=== PATIENT | female | born 1960 | race Caucasian/White ===

== ENCOUNTER 2017-11-11 14:08 | Inpatient (IN) | payer OTHER ==
[2017-11-11] VITALS (9 sets, daily range): BP systolic 121–147; BP diastolic 64–119
[~2017-11-11] VITALS: Ht 170.2 cm; Wt 67.8 kg
--- NOTE | 2017-11-11 14:30 | NUR ---
Patient being evaluated by physician at bedside.
--- NOTE | 2017-11-11 14:30 | NUR ---
PLACED PT ON CARESCAPE POST CPR WHICH WAS AT 1413 A/C 20 VT 600 PEEP5 FIO2 100 PTS TRACH PORTEX 7 CUFFLESS IS SECURE BS DIMINISHED PT NOW RESPONDING EDUCATIONAL ASSISTANT TEACHER OBTAINED BMV HOB VENT PLUGGED INTO RED OUTLET
--- NOTE | 2017-11-11 14:30 | NUR ---
57Y/F BIB EMS FROM [facility] IN RESPIRATORY ARREST ON ARRIVAL BEING BAGGGED HAS A PULSE, SHORTLY AFTER ARRIVING STOPPED BREATHING AND CODE WAS CALLED NO PULSE. PT IS PUT ON MONITOR AND RT AT BEDSIDE, TRACH TO VENT AT THIS TIME, PT IS AAOX2 AT THIS TIME,PATIENT STATES PAIN OF 0/10 AT THIS TIME; VSS; PATIENT POSITIONED FOR COMFORT; HOB ELEVATED; BEDRAILS UP X2; BED DOWN. ER MD MADE AWARE OF PT STATUS.
[2017-11-11] MEDS ORDERED: METO25TE2 PO (14:47)
[2017-11-11] MEDS ORDERED: DOCU-299 PO (14:47)
[2017-11-11] MEDS ORDERED: ESCI10TA PO (14:47)
[2017-11-11] MEDS ORDERED: QUEPKT PO (14:47)
[2017-11-11] MEDS ORDERED: ASPI81CT89 PO (14:47)
[2017-11-11] MEDS ORDERED: MULT1SGL58 PO (14:47)
[2017-11-11] MEDS ORDERED: TAMS0.4C96 PO (14:47)
[2017-11-11] MEDS ORDERED: [UNRECOGNIZED DRUG - CODE] SQ (14:47)
[2017-11-11] MEDS ORDERED: FLOR250 PO (14:47)
[2017-11-11] MEDS ORDERED: FURO-570 PO (14:47)
--- NOTE | 2017-11-11 15:00 | NUR ---
DR LORENZO CHANGED PORTEX 7 CUFFLESS TO PORTEX CUFFED WITHOUT INCIDENT
--- NOTE | 2017-11-11 15:03 | NUR ---
COOKIE AMOS, DR. LORENZO DID A TRACH REPLACEMENT AT THIS TIME
--- NOTE | 2017-11-11 15:06 | NUR ---
VENT SETTINGS; A/C VC FIO2, 100 VT, 600 RATE, 20 FLOW, 60 PEEP, 5 PMAX, 65
[2017-11-11] MEDS ORDERED: NACL 0.9% 1,000 ML IV ONE (15:15)
--- NOTE | 2017-11-11 15:48 | NUR ---
X-RAY AT BEDSIDE AT THIS TIME
--- NOTE | 2017-11-11 15:50 | NUR ---
PT SPUTUM COLLECTED BY RT
[2017-11-11 15:54] LABS: BASOPHILS % (AUTO) 0.2 % (0.0-2.0); EOSINOPHILS # (AUTO) 0.1 K/uL (0-0.4); EOSINOPHILS % (AUTO) 0.7 % (0.0-4.0); HEMATOCRIT 31.2 % (36-48); HEMOGLOBIN 9.5 g/dL (12.0-16.0); LYMPHOCYTES # (AUTO) 0.6 K/uL (2.5-16.5); LYMPHOCYTES % (AUTO) 8.2 % (20.5-51.1); MEAN CORPUSCULAR HEMOGLOBIN 29 pg (27-31); MEAN CORPUSCULAR HGB CONC 30 g/dL (33-37); MEAN CORPUSCULAR VOLUME 96.5 fL (80-94); MONOCYTES # (AUTO) 0.4 K/uL (0.8-1.0); MONOCYTES % (AUTO) 4.9 % (1.7-9.3); NEUTROPHILS # (AUTO) 6.3 K/uL (1.8-7.7); PLATELET COUNT (AUTO) 235 K/uL (140-450); RED BLOOD CELL COUNT(AUTO) 3.23 MIL/uL (4.20-5.40); RED CELL DISTRIBUTION WIDTH 17.3 % (11.6-13.7); WHITE BLOOD COUNT (AUTO) 7.4 K/uL (4.8-10.8)
--- NOTE | 2017-11-11 16:00 | NUR ---
DECREASE VT TO 450 INCREASE RR TO 22
[2017-11-11 16:09] LABS: ANION GAP 5.4 (8-16); CARBON DIOXIDE 32.9 mmol/L (21-32); CREATININE 1.2 mg/dL (0.6-1.3); POTASSIUM 5.3 mmol/L (3.5-5.1)
[2017-11-11] MEDS ORDERED: FUROSEMIDE 40 MG/4 ML VIAL IVP ONE (16:10)
[2017-11-11] MEDS ORDERED: PIPERACILLIN/TAZOBACTAM 3.375 GM in DEXTROSE 5% 50 ML IV ONE (16:10)
[2017-11-11] MEDS ORDERED: NITROGLYCERIN 2% 1 GM PKT TP ONE (16:10)
[2017-11-11 16:13] LABS: PROTHROMBIN TIME 13.1 secs (10.8-13.4)
[2017-11-11 16:15] LABS: TOTAL BILIRUBIN 0.4 mg/dL (0.0-1.0)
[2017-11-11] MEDS ORDERED: PIPERACILLIN/TAZOBACTAM 3.375 GM VIAL IV ONE (16:44)
[2017-11-11] MEDS ORDERED: INSULIN REGULAR, HUMAN 100 UNIT/ML VIAL SUBQ ONE (16:55)
[2017-11-11] MEDS ORDERED: LORazepam 2 MG/ML VIAL IVP PRN (17:00)
[2017-11-11] MEDS ORDERED: ONDANSETRON 4 MG/2 ML VIAL IVP PRN (17:00)
[2017-11-11] MEDS ORDERED: ALBUTEROL 0.083% 2.5 MG/3 ML NEBU IH PRN (17:00)
[2017-11-11] MEDS ORDERED: ACETAMINOPHEN 325 MG TAB PO PRN (17:00)
[2017-11-11] MEDS ORDERED: VANCOMYCIN PER PHARMACY MC PRN (17:05)
--- NOTE | 2017-11-11 17:27 | NUR ---
PT TAKEN TO ICU BY RN ELIDIA, EMT BABS, AND RT STAFF
--- NOTE | 2017-11-11 17:40 | NUR ---
ADMITTED PT FROM ER BY TABATHA S/P RESPIRATORY ARREST, PT AWAKE, ALERT. TRACH TO VENT WITH SETTING FIO2 100%, VT 450, RR 22 AND PEEP 5. NO S/S OF RESPIRATORY DISTRESS NOTED. HOOKED PT TO BEDSIDE MONITOR SHOWS SR. PT HAS IV TO RIGHT HAND RUNNING NS AT 100 MLS/HR, SITE INTACT AND PATENT. PT HAS PITTING EDEMA +2 TO BOTH LOWER EXTREMITIES. SKIN WARM AND DRY, REORIENTED PT ENVIRONMENT. CALL LIGHT IN REACH, WILL CONTINUE TO MONITOR.
--- NOTE | 2017-11-11 18:00 | NUR ---
PT DAUGHTER AT BEDSIDE, MRSA SWAB DONE.
[2017-11-11] MEDS: VANCOMYCIN 1GM/DEXT 5% PREMIX 200 ML IV SCH (18:44)
--- NOTE | 2017-11-11 19:45 | NUR ---
RECEIVED REPORT FROM DAY NURSE NO ACUTE DISTRESS NOTED. WILL CONTINUE TO OBSERVE
--- NOTE | 2017-11-11 19:45 | NUR ---
REPORT GIVEN TO MALENA COATES.
--- NOTE | 2017-11-11 19:55 | NUR ---
PT ASLEEP, AROUSABLE, RESPONDING TO SIMPLE COMMANDS. PT AOX2 ABLE TO MOVE UPPER AND LOWER EXTREMITIES. TRACH TO VENT SIZE 7 PORTEX. VENT SETTINGS 100 % FIO2TV 450 R 22 PEEP5. LUNG SOUNDS CRACKLES NOTED. SUCTIONED SCANT WHITE SPUTUM NOTED. PT DENIES SOB/CP @ THIS TIME. HR 70S NSR, NO EDEMA NOTED. PALPABLE PULES BILATERAL TO UPPER AND LOWER EXTREMITIES. ABD SOFT NON DISTENDED. NPO @ THIS TIME. X2 PERIPHERAL IVS WITH IVF RUNNING. NO SKIN BREAKDOWN NOTED; SCABS TO BILATERAL INNER CALF AREA. NO OTHER S/S OF DISTRESS NOTED. WILL CONTINUE TO OBSERVE
[2017-11-11] MEDS ORDERED: FUROSEMIDE 40 MG/4 ML VIAL IVP SCH (21:00)
--- NOTE | 2017-11-11 21:00 | NUR ---
ALBUTEROL AND ATROVENT GIVEN LATE SINCE DID NOT KNOW PATIENT HAD HHN MEDICATION TREATMENTS ORDERED, NOTHING CAME THROUGH OFFICE PRINTER
[2017-11-11] MEDS: ALBUTEROL 0.083% 2.5 MG/3 ML NEBU IH SCH (21:04)
[2017-11-11] MEDS: IPRATROPIUM 0.02% 0.5 MG/2.5 ML NEBU IH SCH (21:04)
[2017-11-11] MEDS: PIPER/TAZO 3.375GM/D5W PREMIX 50 ML IV SCH (21:10)
[2017-11-11] MEDS ORDERED: FUROSEMIDE 20 MG/2 ML VIAL IVP ONE (22:30)
--- NOTE | 2017-11-11 23:12 | NUR ---
JOHNSON CATH INSERTED, PT TOLERATED WELL. NO DISTRESS NOTED, 500 CLEAR YELLOW URINE POST INSERTION. Addendum: 11/12/17 at 0144 by Joaquín Go RN 500 ML
[2017-11-11] MEDS: MORPHINE SULFATE 2 MG/ML SYR IVP PRN (23:50)
[2017-11-12] VITALS (23 sets, daily range): BP systolic 115–141; BP diastolic 60–78
--- NOTE | 2017-11-12 | NUR ---
VAPP PER PROTOCOL; NO S/S OF DISTRESS NOTED. PT REPOSITIONED. WILL CONTINUE TO OBSERVE
--- NOTE | 2017-11-12 | NUR ---
PT ASLEEP, AROUSABLE SITTING UP IN BED. PT FOLLOWING COMMANDS, ABLE TO MOVE ALL EXTREMITIES. TRACH TO VENT SIZE 7 PORTEX. LUNGS CLEAR/DIMINISHED, SCANT ABAD SECRETIONS NOTED. +2 PITTING EDEMA NOTED.NSR ON MONITOR. ABD SOFT NON DISTENDED. JOHNSON CATH DRAINING CLEAR YELLOW URINE. SCABS TO BILATERAL SHINS NOTED. X2 PERIPHERAL IV NOTED TO BILATERAL FOREARMS. NO ACUTE DISTRESS NOTED WILL CONTINUE TO OBSERVE.
[2017-11-12 00:01] LABS: APPEARANCE,URINE CLEAR (CLEAR); BILIRUBIN,URINE NEGATIVE (NEGATIVE); BLOOD, URINE 1+ (NEGATIVE); COLOR,URINE YELLOW (YELLOW); LEUKOCYTE ESTERASE ,URINE 1+ (NEGATIVE); NITRITE, URINE NEGATIVE (NEGATIVE); UGLUCOSE NEGATIVE (NEGATIVE)
[2017-11-12 00:12] LABS: CREATINE KINASE MB 4.9 ng/mL (0-3.6)
[2017-11-12] MEDS: IPRATROPIUM 0.02% 0.5 MG/2.5 ML NEBU IH SCH ×4 (00:35→18:53)
[2017-11-12] MEDS: ALBUTEROL 0.083% 2.5 MG/3 ML NEBU IH SCH ×4 (00:35→18:53)
--- NOTE | 2017-11-12 02:00 | NUR ---
PT ASLEEP, DENIES SOB/ CHEST PAIN @ THIS TIME. WILL CONTINUE TO OBSERVE.
[2017-11-12 02:33] LABS: RBC,URINE 11-20 (MOD) /HPF (0-5); WBC,URINE TOO MANY TO COUNT /HPF (0-5)
[2017-11-12] MEDS: FUROSEMIDE 40 MG/4 ML VIAL IVP SCH ×3 (04:31→20:58)
[2017-11-12] MEDS: PIPER/TAZO 3.375GM/D5W PREMIX 50 ML IV SCH ×3 (04:31→20:58)
--- NOTE | 2017-11-12 05:00 | NUR ---
OFFERED AM CARE PT REFUSED @ THIS TIME. ORAL CARE/VAP DONE PER PROTOCOL. NO OTHER S/S OF ACUTE DISTRESS NOTED. WILL CONTINUE TO MONITOR.
[2017-11-12 05:34] LABS: HEMOGLOBIN 8.8 g/dL (12.0-16.0); RED CELL DISTRIBUTION WIDTH 16.6 % (11.6-13.7)
[2017-11-12 05:50] LABS: BASOPHILS % (AUTO) 0.2 % (0.0-2.0); EOSINOPHILS % (AUTO) 0.3 % (0.0-4.0); HEMATOCRIT 27.4 % (36-48); LYMPHOCYTES # (AUTO) 1.8 K/uL (2.5-16.5); MEAN CORPUSCULAR HEMOGLOBIN 29 pg (27-31); MEAN CORPUSCULAR HGB CONC 32 g/dL (33-37); MEAN CORPUSCULAR VOLUME 91.4 fL (80-94); MONOCYTES # (AUTO) 0.8 K/uL (0.8-1.0); NEUTROPHILS # (AUTO) 7.2 K/uL (1.8-7.7); NEUTROPHILS % (AUTO) 73.5 % (42.2-75.2); PLATELET COUNT (AUTO) 242 K/uL (140-450); WHITE BLOOD COUNT (AUTO) 9.8 K/uL (4.8-10.8)
--- NOTE | 2017-11-12 06:37 | NUR ---
REC'D PT ON CARESCAPE VENT SETTINGS AC 22 VT 450 PEEP 8 FIO2 80% ALARMS ON AND AUDIBLE AND VENT IS PLUGGED INTO RED OUTLET, AMBU BAG IS AT SIDE OF VENT , I\L TX GIVEN WITH ALBUTEROL 2.5MG AND ATROVENT 0.5MG WITH NO ADVERSE REACTION POST TX, B\S ARE CLEAR BILATERALLY, PT IS TRACH WITH PORTEX 7 AND SKIN INTEGRITY IS INTACT, ABG ATTEMPTED UNABLE TO GET AT THIS TIME WILL TRY AGAIN PT IS AWAKE
[2017-11-12 06:56] LABS: ANION GAP 6.3 (8-16); CARBON DIOXIDE 32.1 mmol/L (21-32); POTASSIUM 4.4 mmol/L (3.5-5.1)
--- NOTE | 2017-11-12 07:24 | NUR ---
REPORT GIVEN TO DAY SHIFT FOR CONTINUITY OF CARE.
--- NOTE | 2017-11-12 07:30 | NUR ---
RECEIVED PT FROM PM NURSE, PT AWAKE, ALERT. ABLE TO FOLLOW COMMANDS. TRACH TO VENT WITH FIO2 80%, NO S/S OF RESPIRATORY DISTRESS NOTED. IV SITE INTACT AND PATENT. BOTH LOWER EXTREMITIES ARE EDEMATOUS, JOHNSON CATH IN PLACE WITH YELLOW CLEAR URINE NOTED. CALL LIGHT IN REACH WITH LOW BED POSITION, WILL CONTINUE TO MONITOR PT.
[2017-11-12 07:50] LABS: ALBUMIN 1.8 g/dL (3.4-5.0); CREATININE 1.4 mg/dL (0.6-1.3); MAGNESIUM 2.7 mg/dL (1.8-2.4); PHOSPHORUS 3.2 mg/dL (2.5-4.9); TOTAL BILIRUBIN 0.6 mg/dL (0.0-1.0)
[2017-11-12] MEDS: ENOXAPARIN 40 MG/0.4 ML SYR SUBQ SCH (08:23)
[2017-11-12] MEDS: ASPIRIN 81 MG TAB.CHEW PO SCH (09:00)
--- NOTE | 2017-11-12 09:03 | NUR ---
PATIENT HAS BEEN SCREENED AND CATEGORIZED MODERATE NUTRITION RISK. PATIENT WILL BE SEEN WITHIN 3-5 DAYS OF ADMISSION. 10/14/17 10/16/[address]
--- NOTE | 2017-11-12 09:05 | NUR ---
vent check, no sxn required at this time airway patent and abg was attempted again still unable to get
--- NOTE | 2017-11-12 09:10 | NUR ---
IN TO CHECK PT, UPDATED LABS TROP 0.396 WHICH IS TRENDING DOWN. ALSO NOTIFIED HIM HOLD ASPIRIN DUE TO NPO, WILL FOLLOW UP.
[2017-11-12] MEDS ORDERED: INSULIN LISPRO SLIDING SCALE 100 UNITS/ML VIAL SUBQ PRN (10:05)
[2017-11-12] MEDS ORDERED: DEXTROSE 50% 50 ML SYR IVP PRN (10:05)
[2017-11-12] MEDS ORDERED: PROBIOTIC SCREEN 1 EA MISC MC PRN (11:00)
--- NOTE | 2017-11-12 11:16 | NUR ---
SPEECH PATHOLOGY NOTE S.T. bedside swallow eval order received, chart reviewed. Spoke with RN Yeimi and RT Maria Dolores re: patient's readiness/appropriateness for eval. Pt currently on FiO2 80%, PEEP 8, having just had cardiac arrest yesterday and placed back on vent. Resp therapy agreed with me that pt is not appropriate for P.O. trials at this time and swallow eval should be held until pt is able to tolerate CPAP settings and is alert and following commands. Therefore, bedside swallow eval will not be completed at this time. It is recommended that order be cancelled or suspended and then reordered when pt meets above criteria. Thank you.
--- NOTE | 2017-11-12 11:26 | NUR ---
PT'S DAUGHTER AT BEDSIDE.
[2017-11-12] MEDS: BLOOD GLUCOSE MONITORING 1 DEV DEV FS SCH ×3 (11:28→20:59)
--- NOTE | 2017-11-12 11:33 | NUR ---
VENT CHECK DONE BS SOUNDS COARSE CRACKLES PT SUCTIONED BLOOD TINGED SECRETIONS THIN SMALL AMOUNT OBTAINED BLOOD GAS ATTEMPTED FOR THIRD TIME UNABLE TO BE OBTAINED DAUGHTER AT THE BEDSIDE
[2017-11-12] MEDS: VANCOMYCIN 1GM/DEXT 5% PREMIX 200 ML IV SCH (11:36)
--- NOTE | 2017-11-12 13:14 | NUR ---
VENT CHECK, I\L TX GIVEN WITH ALBUTEROL 2.5MG AND ATROVENT 0.5MG WITH NO ADVERSE REACTION POST TX, DECREASED FIO2 TO 60% O2SAT 100% DAUGHTERS AT BEDSIDE
--- NOTE | 2017-11-12 13:50 | NUR ---
PT SLEEPING IN BED, NO S/S OF RESPIRATORY NOTED. DAUGHTER AT BEDSIDE.
--- NOTE | 2017-11-12 14:39 | NUR ---
TALKED TO DR. OVIEDO CONCERNING ABG AND EXPLAINED THAT PT WAS DOING GOOD FAR O2 SAT WERE IN THE 100% AND HE STATED TO CANCELL ABG.
--- NOTE | 2017-11-12 15:27 | NUR ---
VENT CHECK, NO SNX NEEDED DECREASED FIO2 TO 50% PT RESTING
--- NOTE | 2017-11-12 16:30 | NUR ---
PT RESTING IN BED, SLEEPY BUT AROUSEABLE. DENIES PAIN OR DISCOMFORT. FINGER BS CHECKED, NO COVERAGE NEEDED.
--- NOTE | 2017-11-12 19:25 | NUR ---
REPORT GIVEN TO PM NURSE, VITALS STABLE AT THIS MOMENT.
--- NOTE | 2017-11-12 19:31 | NUR ---
RECEIVED REPORT FROM DAY SHIFT RN NO ACUTE DISTRESS NOTED. WILL CONTINUE TO OBSERVE.
[2017-11-12] MEDS: CARVEDILOL 6.25 MG TAB PO SCH (20:59)
[2017-11-12] MEDS ORDERED: MORPHINE SULFATE 4 MG/ML SYR ONE (23:37)
[2017-11-12] MEDS: MORPHINE SULFATE 2 MG/ML SYR IVP PRN (23:39)
[2017-11-13] VITALS (23 sets, daily range): BP systolic 106–139; BP diastolic 53–89
--- NOTE | 2017-11-13 | NUR ---
PT TURNED AND REPOSITIONED, VAP PER PROTOCOL DONE.
[2017-11-13] MEDS: ALBUTEROL 0.083% 2.5 MG/3 ML NEBU IH SCH ×4 (01:09→18:59)
[2017-11-13] MEDS: IPRATROPIUM 0.02% 0.5 MG/2.5 ML NEBU IH SCH ×4 (01:09→18:59)
--- NOTE | 2017-11-13 01:56 | NUR ---
PT STARTED TO DESAT.TO 86%, AND INCREASED FIO2 TO 50%
--- NOTE | 2017-11-13 04:14 | NUR ---
ORAL CARE DONE, VAP PER PROTOCOL. AM CARE DONE. PT TURNED AND REPOSITIONED. WILL CONTINUE TO OBSERVE.
[2017-11-13] MEDS: FUROSEMIDE 40 MG/4 ML VIAL IVP SCH ×3 (04:55→20:27)
[2017-11-13] MEDS: PIPER/TAZO 3.375GM/D5W PREMIX 50 ML IV SCH ×3 (04:55→20:27)
[2017-11-13] MEDS: VANCOMYCIN 1GM/DEXT 5% PREMIX 200 ML IV SCH (04:55)
[2017-11-13 05:33] LABS: ANION GAP 5.7 (8-16); CARBON DIOXIDE 34.4 mmol/L (21-32); CREATININE 1.6 mg/dL (0.6-1.3); POTASSIUM 3.1 mmol/L (3.5-5.1)
[2017-11-13] MEDS: BLOOD GLUCOSE MONITORING 1 DEV DEV FS SCH ×4 (06:53→21:15)
--- NOTE | 2017-11-13 07:00 | NUR ---
DR OVIEDO PAGED; K+ 3.1 THIS AM, NOTIFIED ABOUT LASIX ORDER. ORDERED SCHEDULED ORDER K RIDER 20 MEQ BID. SEE EMAR FOR DETAILS. WILL CONTINUE TO OBSERVE.
--- NOTE | 2017-11-13 07:06 | NUR ---
REPORT GIVEN TO DAY SHIFT FOR CONTINUITY OF CARE.
--- NOTE | 2017-11-13 07:21 | NUR ---
RECEIVED ON A NanoString TechnologiesAPE R860 VENTILATOR PLUGGED INTO RED OUTLET TOLERATING WELL WITHOUT ADVERSE REACTIONS NOTED TO A PORTEX FEN DCT #7 AIRWAY SECURED WITH A ABEL TRACH TIE CUFF PRESSURE CHECKED NOTED AMBU BAG NOTED AT HOB LOC AWAKE AND ALERT RESPONSIVE BREATH SOUNDS CLEAR BILATERAL WITH GOOD CHEST RISE AIRWAY PATENT Addendum: 11/13/17 at 1050 by Chino Delgado RT PATIENT PRESENTING WITH STRONG COUGH POST ASSESSMENT DEEP TRACHEAL SUCTION FOR SMALL THICK BROWN SECRETIONS
--- NOTE | 2017-11-13 07:30 | NUR ---
RECEIVED PT FROM PM NURSE, PT AWAKE, ALERT. ABLE TO FOLLOW COMMANDS.TRACH TO VENT, NO S/S OF RESPIRATORY DISTRESS NOTED. BEDSIDE MONITOR SHOWS SR. ABDOMEN SOFT. F/C IN PLACE WITH CLEAR YELLOW URINE NOTED. HOB ELEVATED 30 DEGREES WITH LOW BED POSITION, CALL LIGHT IN REACH, WILL CONTINUE TO MONITOR.
[2017-11-13] MEDS: PANTOPRAZOLE 40 MG INJ VIAL IVP SCH (08:29)
[2017-11-13] MEDS ORDERED: KCL 20 MEQ/WATER INJ PREMIX 100 ML IV SCH (09:00)
[2017-11-13] MEDS: ASPIRIN 81 MG TAB.CHEW PO SCH (09:00)
[2017-11-13] MEDS: CARVEDILOL 6.25 MG TAB PO SCH ×2 (09:00→20:27)
[2017-11-13] MEDS: LACTOBACILLUS RHAMNOSUS GG 1 EACH CAP PO SCH (09:00)
--- NOTE | 2017-11-13 09:00 | NUR ---
ORAL CARE AND RIN CARE GIVEN TO PT. PT TOLERATED WELL
[2017-11-13] MEDS: ENOXAPARIN 40 MG/0.4 ML SYR SUBQ SCH (09:25)
[2017-11-13] MEDS: MORPHINE SULFATE 2 MG/ML SYR IVP PRN (09:26)
[2017-11-13] MEDS ORDERED: POTASSIUM CHLORIDE 40 MEQ, LIDOCAINE 2% 25 MG in NACL 0.9% 250 ML IV SCH (11:00)
--- NOTE | 2017-11-13 11:45 | NUR ---
AWAKE STABLE GOOD CHEST RISE
--- NOTE | 2017-11-13 12:05 | NUR ---
PT RESTING IN BED, NO S/S OF RESPIRATORY DISTRESS OR DISCOMFORT NOTED.
[2017-11-13] MEDS ORDERED: diphenhydrAMINE 50 MG/ML VIAL IVP PRN (12:55)
--- NOTE | 2017-11-13 13:24 | NUR ---
NO PULMONARY DISTRESS NOTED AT THIS TIME BREATH SOUNDS CLEAR BILATERAL WITH GOOD CHEST RISE AND AERATION THROUGHOUT AIRWAY PATENT Addendum: 11/13/17 at 1347 by Chino LEMOS SATURATION 99% ON FIO2 OF 40% TITRATED FIO2 TO 35% WINSTON NOTIFIED
--- NOTE | 2017-11-13 14:10 | NUR ---
PT RESTING IN BED, NO S/S OF RESPIRATORY DISTRESS OR DISCOMFORT NOTED.
--- NOTE | 2017-11-13 14:30 | NUR ---
FAXED INITIAL REVIEW TO [facility] [phone] PHONE CANDY [phone]
--- NOTE | 2017-11-13 15:19 | NUR ---
AWAKE TOLERATING VENTILATORY SUPPORT WELL WITHOUT INCIDENT GOOD CHEST RISE AIRWAY PATENT BREAKFAST BAR ATTENDANT TO MONITOR
--- NOTE | 2017-11-13 16:16 | NUR ---
FINGER BS CHECKED 91, NO INSULIN COVERAGE NEEDED.
--- NOTE | 2017-11-13 17:58 | NUR ---
STABLE NO DISTRESS NOTED GOOD CHEST RISE DEEP TRACHEAL SUCTION FOR SMALL THICK RED/GREEN PLUG AIRWAY PATENT SATURATION 97% ON FIO2 OF 35% TITRATED FIO2 TO 30% AVINASH/RN NOTIFIED
--- NOTE | 2017-11-13 18:00 | NUR ---
PT C/O PAIN DUE TO CODE BEFORE. OFFERED PT MORPHINE, PT REFUSED. FAMILY AT BEDSIDE.
--- NOTE | 2017-11-13 18:47 | NUR ---
* ST NOTE * Pt seen at bedside w/RT, daughters and nsg present, w/RT deeming pt as safe for therapeutic feeding trials at this time. Pt alert, cooperative and engaged throughout session, and also consenting for evaluation w/daughters present. Bedside dysphagia and oral mechanism exams completed. See evaluation report for further details. Clinician thus deflating pt's cuff at this time 2/2 to RT reporting not having any [place] speaking and eating valves in stock at this time. Pt tolerating cuff deflation while maintaining adequate 02 saturation and heart rates. Pt thus tolerating 4/4 alternating PO trials of puree apple sauce as well as 4/4 alternating PO trials of nectar-thick apple juice, all 3-4 CCs at a time via a spoon w/o s/s of aspiration or choking. Pt also tolerating 4/4 alternating PO trials of successive sips of thin liquid apple juice via a straw, all w/o s/s of aspiration or choking. Upon suctioning pt, RT observing no blue dye present in pt's secretions, w/pt thus passing Blue Dye Test at this time. It is thus recommended pt may begin PO diet consistency of puree textures w/thin liquids for all meals w/cuff deflated and aspiration precautions in place, w/pt and caregivers/daughters, RT & nsg agreeable. It is also recommended pt receive skilled PSYCHIC READER services to further assess least restrictive PO diet consistency as well as to further address swallow function, w/pt, caregivers/daughters, RT & nsg verbalizing understanding and agreement w/clinician's recommendations. Pt, caregivers/daughters and caregivers/RT & Nsg education completed regarding aspiration precautions and safe swallow compensatory strategies pt and caregivers/family could utilize to aid pt w/swallow function, w/pt and caregivers/daughters agreeable. Pt, caregivers/daughters, RT & nsg education also completed regarding results of evaluation; benefits of receiving skilled PSYCHIC READER services; POC; and prognosis for improvement; with pt, caregivers/daughters and caregivers/RT & nsg verbalizing understanding and agreement w/clinician's recommendations. Recommend: - D/C NPO - PO diet consistency of PUREE TEXTURES W/THIN LIQUIDS for all meals - Maintain STRICT ASPIRATION PRECAUTIONS 2/2 to pt's hx of respiratory arrest & PNA - Pt requires assistance w/feeding - Feeder to SIT PT UP AT 80-90 DEGREE ANGLE DURING PO INTAKE, FEED PT SLOWLY, ALTERNATING BTWN SOLIDS & LIQUIDS, UTILIZE SMALL BITES/SIPS, & KEEP PT'S HOB ELEVATED AT 80-90 DEGREES FOR 20 MINUTES AFTER PO INTAKE - Suction PRN ST to follow up 2x/week for 1 week for a potential diet upgrade to mechanical soft textures w/thin liquids. G8996 CJ G8997 CI NOMS Level 2 Time In/Out 17:50 - 18:35
--- NOTE | 2017-11-13 19:09 | NUR ---
Received pt stable on vent support at documented settings, suctioned small amounts of thick yellow bloody secretions, hhn tx given, tolerated well, no resp distress or SOB noted at this time, family at bedside, portex 7 trach secured/patent/midline, alarms set and audible, ambu bag at bedside, vent plugged into red outlet, pulse ox on, will cont to monitor.
--- NOTE | 2017-11-13 19:20 | NUR ---
RECEIVED BEDSIDE REPORT FROM MORNING SHIFT RN. PATIENT AWAKE, ALERT, ABLE TO MAKE NEEDS KNOWN. TRACT TO VENT WITH SETTING A/C MODE RATE 22, FIO2 30%, VT 450, PEEP 5 NOTED. BILATERAL LUNGS SOUND RHONCHI. NO ACUTE RESPIRATORY DISTRESS NOTED. DENIES PAIN AT THIS TIME. SR ON THE MONITOR. SALINE LOCK TO LEFT FORE ARM 20G NOTED. NO S/S OF INFECTION, INTACT AND PATENT. F/C IN PLACE DRAINING CLEAR YELLOW URINE NOTED. PATIENT ABLE TO CHANGE HER POSITION BY HERSELF. NO COMPLAINT ABOUT DISCOMFORT. HOB ELEVATED, BED IN LOW POSITION, CALL LIGHT WITHIN REACH. WILL CONTINUE TO MONITOR.
--- NOTE | 2017-11-13 20:40 | NUR ---
ADMINISTERED SCHEDULED MEDICATION AND PRN BENADRYL FOR ITCHING, PATIENT TOLERATED WELL. PO MEDICATION GIVEN MIXED WITH APPLE SOURCE, TOLERATED WELL. NO ACUTE DISTRESS NOTED. WILL CONTINUE TO MONITOR.
--- NOTE | 2017-11-13 23:00 | NUR ---
PATIENT HAD BOWEL MOVEMENT, MODERATE AMOUNT OF GREEN AND BROWN COLOR LOOSE STOOL NOTED. DENIES ANY PAIN AT THIS TIME. TOLERATED WELL WITH VENTILATOR. WILL CONTINUE TO MONITOR.
--- NOTE | 2017-11-13 23:56 | NUR ---
VANCO TROUGH RESULT 26.0. PHARMACIST NOTIFIED AND STATED TO HOLD 12MN VANCO DOSE. WILL CONTINUE TO MONITOR.
[2017-11-14] VITALS (20 sets, daily range): BP systolic 99–140; BP diastolic 46–76
[2017-11-14] MEDS: ALBUTEROL 0.083% 2.5 MG/3 ML NEBU IH SCH ×3 (00:58→13:22)
[2017-11-14] MEDS: IPRATROPIUM 0.02% 0.5 MG/2.5 ML NEBU IH SCH ×3 (00:58→13:22)
--- NOTE | 2017-11-14 01:00 | NUR ---
PATIENT IN ASLEEP, AROUSABLE TO VOICE. NO ACUTE DISTRESS NOTED. DENIES PAIN. SR ON THE MONITOR. VSS. WILL CONTINUE TO MONITOR.
--- NOTE | 2017-11-14 03:00 | NUR ---
NO ACUTE DISTRESS NOTED. VSS. WILL CONTINUE TO MONITOR.
[2017-11-14] MEDS: MORPHINE SULFATE 2 MG/ML SYR IVP PRN (04:10)
[2017-11-14] MEDS: PIPER/TAZO 3.375GM/D5W PREMIX 50 ML IV SCH ×2 (04:11→13:52)
--- NOTE | 2017-11-14 05:00 | NUR ---
PATIENT IN ASLEEP, AROUSABLE TO VOICE. NO ACUTE DISTRESS NOTED. SR ON THE MONITOR. DENIES PAIN. WILL CONTINUE TO MONITOR.
[2017-11-14 05:45] LABS: ANION GAP 5.6 (8-16); CARBON DIOXIDE 32.5 mmol/L (21-32); CREATININE 1.7 mg/dL (0.6-1.3); POTASSIUM 3.1 mmol/L (3.5-5.1)
--- NOTE | 2017-11-14 07:13 | NUR ---
RECEIVED TRACH PT WITH A PORTEX 7 TRACH ON VENT. SETTINGS AC 22, VT 450, PEEP 8 AND FIO2 35%. PT IS AWAKE AT THIS TIME. TRACH IS SECURE WITH A PATENT AIRWAY. VENT IS PLUGGED INTO A RED OUTLET WITH ALARMS ON AND FUNCTIONING. AMBU BAG IS PRESENT NEAR BEDSIDE. WILL CONTINUE TO MONITOR.
--- NOTE | 2017-11-14 07:20 | NUR ---
GIVEN BEDSIDE REPORT TO MORNING SHIFT RN FOR CONTINUITY OF CARE.
--- NOTE | 2017-11-14 07:25 | NUR ---
RECEIVED REPORT FROM SERVICE STATION ATTENDANT RN. PT A/O X3, ABLE TO MAKE NEEDS KNOWN. SR ON MONITOR. ON TRACH TO VENT AC 22 FIO2 35% TV 450 PEEP 8. LUNGS WHEEZING ON AUSCULTATION. PERIPHERAL LINE NOTED ON LEFT FOREARM 20 G, INTACT. ABDOMEN SOFT ROUND AND NON-TENDER. ACTIVE BOWEL SOUND. ON JOHNSON CATHETER DRAINING CLEAR YELLOW URINE VIA GRAVITY. DRY SCABS NOTED ON LLE. LEFT BIG TOE AMPUTEE. KEPT HOB ELEVATED. BED IN LOW POSITION, LOCKED. CALL LIGHT WITHIN REACH. WILL CONTINUE TO MONITOR.
[2017-11-14] MEDS: FUROSEMIDE 40 MG/4 ML VIAL IVP SCH (08:16)
[2017-11-14] MEDS: PANTOPRAZOLE 40 MG INJ VIAL IVP SCH (08:16)
[2017-11-14] MEDS: CARVEDILOL 6.25 MG TAB PO SCH (08:17)
[2017-11-14] MEDS: ASPIRIN 81 MG TAB.CHEW PO SCH (08:17)
[2017-11-14] MEDS: LACTOBACILLUS RHAMNOSUS GG 1 EACH CAP PO SCH (08:18)
[2017-11-14] MEDS: BLOOD GLUCOSE MONITORING 1 DEV DEV FS SCH ×3 (08:26→16:41)
--- NOTE | 2017-11-14 09:08 | NUR ---
Supervisor Hand Silvering Note: Per June from [facility] , patient is on a 7 day bed hold and is one of their [facility] patients. June stated patient does not have an existing Advance Directive and patient's daughter Dianne Gong is patient's healthcare decision maker. Addendum: 11/14/17 at 0919 by Arelis DEGROOT I faxed patient's updated medical information to [facility].
[2017-11-14] MEDS: ENOXAPARIN 40 MG/0.4 ML SYR SUBQ SCH (09:28)
--- NOTE | 2017-11-14 09:50 | NUR ---
PT SUCTIONED OBTAINED LARGE AMOUNT OF DARK BROWN SECRETIONS. PT BECAME VERY AGITATED MOVING AROUND IN BED. NURSE BEDSIDE. WILL CONTINUE TO MONITOR.
--- NOTE | 2017-11-14 10:14 | NUR ---
PT REFUSED TO BE CHANGED AND REPOSITIONED. OFFERED X2. SAID SHE WILL CALL ME WHEN SHE IS READY.
--- NOTE | 2017-11-14 10:40 | NUR ---
PT SLEEPING COMFORTABLY. NO ACUTE RESPIRATORY DISTRESS NOTED SATURATING 95%. NO CHANGE IN LOC. WILL CONTINUE TO MONITOR.
[2017-11-14] MEDS ORDERED: FURO-570 PO (10:58)
[2017-11-14] MEDS ORDERED: POTASSIUM CHLORIDE 20% 40 MEQ/15 ML UDC PO SCH (11:30)
--- NOTE | 2017-11-14 12:02 | NUR ---
RECEIVED A CALL FROM ELLEN COATESMARINE CARGO INSPECTOR NURSE. SHE SAID [place] [facility] [place] [facility] [place] SPOKE WITH JARRED. SHE SAID SHE NEEDED THE SPUTUM CULTURE FIRST. I CALLED ICU AND INFORMED ANTONIA RN AFTER CLEARED [place] [facility] [place] GET[place] RESULTS OF SPUTUM, THE PATIENT CAN GO TO ROOM [address] ROB[address]. Addendum: 11/14/17 at 1210 by Grace Ugalde CM CORRE[place] ROOM [place] [facility]OM [address]A UNDER DR[address] ROBINS.
--- NOTE | 2017-11-14 12:40 | NUR ---
NOTIFIED DR. HEIN OF ABG RESULTS. GAVE ORDERS.
--- NOTE | 2017-11-14 13:03 | NUR ---
FAXED THE RESULTS OF SPUTUM CULTURE [place] [facility]
--- NOTE | 2017-11-14 13:22 | NUR ---
PAGED DR. OVIEDO. WAITING FOR CALL BACK.
--- NOTE | 2017-11-14 13:31 | NUR ---
RECEIVED CALL FROM DR. OVIEDO. MADE AWARE ABOUT SPUTUM CULTURE REPORT: STAPHYLOCOCCUS AUREUS AND PT IS RESISTANT TO ERYTHROMYCIN AND PENICILLIN. SAID DISCONTINUE AUGMENTIN. PT CAN BE DISCHARGED WITHOUT ANTIBIOTICS. WILL FOLLOW UP ORDER.
--- NOTE | 2017-11-14 13:39 | NUR ---
CORPORATE PLANNER NOTE S/O: Pt seen at bedside, sleeping, and per INCENDIARY POWDER MIXER, was given adivan 0934 2/2 agitation. Pt family and RT present at bedside. CORPORATE PLANNER reviewed evaluation from day prior, seeing that pt was cleared for puree and thin liquids. CORPORATE PLANNER educated pt family on risk of aspiration and trach weaning, pt family voiced understanding. CORPORATE PLANNER educated pt daughter on safe swallow strategies, and re-emphasized cuff deflation prior and during meals. RT voiced understanding, and stated nothing was suctioned s/p breakfast meal. A/P: Pt tolerating PO intake via mouth per RT, however CORPORATE PLANNER unable to corroborate at this time 2/2 pt unable to participate in all therapeutic tasks. Recommend hold PO until pt awake and alert. Per RN, pt to DC to [facility] today for further weaning. If pt DC today, recommend continue CORPORATE PLANNER follow up for diet safety and education. Addendum: 11/14/17 at 1347 by Chaparro FRY [phone]
--- NOTE | 2017-11-14 13:45 | NUR ---
SPOKE WITH JARRED AT [facility]. PATIENT IS CLEARED TO COME BACK TO THEM ANYTIME, ROOM 4A UNDER DR. ROBINS. ANTONIA COATES IN ICE INFORMED. Addendum: 11/14/17 at 1359 by Grace Ugalde CORRECTION, ANTONIA COATES IN ICU INFORMED.
--- NOTE | 2017-11-14 13:59 | NUR ---
SPOKE WITH SAMANTHA FROM [facility]. THE AUTH FOR [facility] TRANSPORT IS [id number]. I INFORMED ELLEN COATESDATABASE MANAGER NURSE IN ICU.
--- NOTE | 2017-11-14 14:15 | NUR ---
DISCONTINUED OG-TUBE. BEDSIDE SWALLOW EVALUATION DONE PER DR. TABOR. PT ABLE TO SWALLOW APPLE SAUCE WITHOUT ASPIRATION.
--- NOTE | 2017-11-14 14:19 | NUR ---
FAXED CONCURRENT REVIEW TO [facility] [phone]
--- NOTE | 2017-11-14 15:47 | NUR ---
PT IS ASLEEP AT THIS TIME TOLERATING VENT WELL. PT DAUGHTER IS BEDSIDE. WILL CONTINUE TO MONITOR.
[2017-11-14] MEDS ORDERED: LEVO250T2 PO (16:02)
--- NOTE | 2017-11-14 17:09 | NUR ---
PT REMAINS ON DOCUMENTED VENT SETTINGS. PT IS NOT SOB AND NOT IN RESPIRATORY DISTRESS AT THIS TIME. VENT ALARMS REMAIN ON AND FUNCTIONING. PT DAUGHTER IS BEDSIDE. TRACH REMAINS SECURE WITH A PATENT AIRWAY.
--- NOTE | 2017-11-14 17:21 | NUR ---
RESTING IN BED. NO ACUTE DISTRESS NOTED. NO CHANGE IN LOC. VS WNL. WILL CONTINUE TO MONITOR.
--- NOTE | 2017-11-14 18:24 | NUR ---
PT READY TO BE TRANSFERRED. WAITING FOR ACCOUNTANT CLERK. PT ON STABLE CONDITION. FAMILY AT BEDSIDE. REPORT ALREADY GIVEN TO TAMIKO HINDS. Addendum: 11/14/17 at 1853 by Mercy Mejia RN DISCONTINUED JOHNSON CATHETER.
--- NOTE | 2017-11-14 18:54 | NUR ---
REPORT GIVEN TO [place] RT. HANDED ALL THE NEEDED DOCUMENTS.
--- NOTE | 2017-11-14 19:05 | NUR ---
[place] [facility] [place] [facility] CCT WITH RT ALYSSA ACCOMPANIED BY FAMILY. PT ON STABLE CONDITION.
--- NOTE | 2017-11-19 10:00 | NUR ---
S.T. DISCHARGE SUMMARY Pt dc'd to SNF 11/14/17 on pureed diet, thin liquids. OG tube was dc'd. Pt was evaluated and treated twice. Recommend continue ST services at SNF to ensure diet tolerance and provide education to pt and family. G8998 CK NOMS LEVEL 4
== END 2017-11-14 19:05 | DRG 190 ==
LOC: MED 14:08 → MIC 17:04
PROVIDERS: ADMIT Internal Medicine; ATTEND Internal Medicine
PROC: 5A1945Z Respiratory Ventilation, 24-96 Consecutive Hours (ICD-10-PCS; principal; 2017-11-11)
PROC: 5A12012 Performance of Cardiac Output, Single, Manual (ICD-10-PCS; 2017-11-11)
DX: I21.A1 Myocardial infarction type 2 (principal); J96.21 Acute and chronic respiratory failure with hypoxia; I46.9 Cardiac arrest, cause unspecified; G93.41 Metabolic encephalopathy; I50.43 Acute on chronic combined systolic (congestive) and diastolic (congestive) heart failure; J18.9 Pneumonia, unspecified organism; Z93.0 Tracheostomy status; I11.0 Hypertensive heart disease with heart failure; E11.51 Type 2 diabetes mellitus with diabetic peripheral angiopathy without gangrene; R13.11 Dysphagia, oral phase; J96.22 Acute and chronic respiratory failure with hypercapnia; E87.5 Hyperkalemia; D64.9 Anemia, unspecified; Z79.82 Long term (current) use of aspirin; Z79.899 Other long term (current) drug therapy
CPT/HCPCS: 31500; 36415; 36600; 70360; 71045; 80048; 80053; 80202; 81001; 82550; 82553; 82803; 82948; 83605; 83735; 83880; 84100; 84484; 85025; 85610; 85730; 87040; 87070; 87081; 87086; 87186; 87205; 89220; 92526; 92950; 93005; 94002; 94003; 94640; 96361; 96365; 96372; 96375; 97799; 99291; C9113; J1200; J1650; J1815; J1940; J2001; J2060; J2270; J2405; J2543; J3370; J3480; J7030; J7060; J7613; J7644; Q0092

== ENCOUNTER 2017-12-09 11:59 | Inpatient (IN) | payer OTHER ==
--- NOTE | 2017-11-29 23:00 | NUR ---
SLEEPING. NO COMPLAINTS OR RESTLESSNESS NOTED. CALL LIGHT WITH IN REACH AND ABLE TO USE IT WELL. RESPIRATORY THERAPIST SUCTIONS PT. WELL. ASKED IF SHE WANTS SUCTION. NODS HEAD TO COMMUNICATE "NO" FLACC 0- Addendum: 12/11/17 at 0119 by Radha Hernández RN ABOVE CHARTING FOR 01:19
[~2017-12-09] VITALS: Ht 160 cm; Wt 68.0 kg
[~2017-12-09 11:59] MED LIST: ASPI81CT89 PO; DOCU-299 PO; ESCI10TA PO; FLOR250 PO; FURO-570 PO; LEVO250T2 PO; METO25TE2 PO; MULT1SGL58 PO; QUEPKT PO; TAMS0.4C96 PO; [UNRECOGNIZED DRUG - CODE] SQ
--- NOTE | 2017-12-09 11:59 | NUR ---
PT BIBA ALS TO BED 10
--- NOTE | 2017-12-09 12:00 | NUR ---
[place] [facility] [place]ALU[place] OF AN ABNORMAL XRAY, POSSIBLE PNEUMONIA. PATIENT IS ON A TRACH TO VENT. PATIENT IS AOX3. PER [facility] EMT WAS GIVEN ZOFRAN 2 HRS AGO FOR NAUSEA AT FACILITY. PATIENT ALSO PRESENTS WITH BLOOD TINGED SPUTUM. PATIENT HAS A HX OF CHF, HTN, DM, AND REPIRATORY FAILURE. RECTAL TEMP TAKEN, 100.3; PICTURES TAKEN OF SACRAL AREA WHICH APPEARS RED, VSS; PATIENT POSITIONED FOR COMFORT; HOB ELEVATED; BEDRAILS UP X2; BED DOWN. ER MD MADE AWARE OF PT STATUS.
[2017-12-09 12:01] VITALS: BP 116/56
--- NOTE | 2017-12-09 12:01 | NUR ---
PATIENT WAS BIBA AT 1201 DUE TO POSSIBLE PNEUMONIA. PLACED ON CARESCAPE VENT. SETTINGS: AC 22 450 +8 50%. ALARMS ON AND AUDIBLE. PATIENT WAS SUCTIONED FOR C+S, MODERATE AMOUNT OF THICK RED BLOOD WITH CLOTS. BREATH SOUNDS ARE CLEAR BILATERALLY. PATIENT IS TRACHED WITH A PORTEX 7, INNER CANNULA WAS CHANGED DUE TO BEING CLOGGED. PATIENT IS AWAKE AND ALERT.
[2017-12-09 12:14] VITALS: BP 116/56
[2017-12-09] MEDS ORDERED: LEVOFLOXACIN 500 MG/D5W PREMIX 100 ML IV ONE (12:25)
[2017-12-09] MEDS ORDERED: NACL 0.9% 500 ML IV SCH (12:25)
[2017-12-09] MEDS ORDERED: ACETAMINOPHEN 650 MG SUPP RC ONE (12:25)
[2017-12-09] MEDS ORDERED: ACETAMINOPHEN 325 MG SUPP RC ONE (12:26)
[2017-12-09 13:06] LABS: BASOPHILS % (AUTO) 0.1 % (0.0-2.0); EOSINOPHILS % (AUTO) 0.1 % (0.0-4.0); HEMATOCRIT 26.4 % (36-48); HEMOGLOBIN 8.5 g/dL (12.0-16.0); LYMPHOCYTES # (AUTO) 0.7 K/uL (2.5-16.5); LYMPHOCYTES % (AUTO) 6.7 % (20.5-51.1); MEAN CORPUSCULAR HEMOGLOBIN 29 pg (27-31); MEAN CORPUSCULAR HGB CONC 32 g/dL (33-37); MEAN CORPUSCULAR VOLUME 90.2 fL (80-94); MONOCYTES # (AUTO) 0.9 K/uL (0.8-1.0); MONOCYTES % (AUTO) 8.6 % (1.7-9.3); NEUTROPHILS % (AUTO) 84.5 % (42.2-75.2); PLATELET COUNT (AUTO) 307 K/uL (140-450); RED BLOOD CELL COUNT(AUTO) 2.93 MIL/uL (4.20-5.40); RED CELL DISTRIBUTION WIDTH 16.4 % (11.6-13.7); WHITE BLOOD COUNT (AUTO) 10.7 K/uL (4.8-10.8)
[2017-12-09 13:18] LABS: ALBUMIN 1.5 g/dL (3.4-5.0); ANION GAP 11.2 (8-16); CARBON DIOXIDE 23.5 mmol/L (21-32); POTASSIUM 4.7 mmol/L (3.5-5.1); TOTAL BILIRUBIN 0.5 mg/dL (0.0-1.0)
[2017-12-09 13:36] LABS: PROTHROMBIN TIME 13.4 secs (10.8-13.4)
--- NOTE | 2017-12-09 13:52 | NUR ---
# 14 FR Urinary catheter inserted utilizing sterile technique. Immediate return of 150 ml yellow clear urine noted. Urine sample collected and sent to lab. Pt tolerated procedure well.
[2017-12-09] MEDS ORDERED: ONDANSETRON 4 MG/2 ML VIAL IVP PRN (13:55)
[2017-12-09] MEDS ORDERED: ACETAMINOPHEN 325 MG TAB PO PRN (13:55)
[2017-12-09] MEDS ORDERED: LORazepam 2 MG/ML VIAL IVP PRN (13:55)
[2017-12-09] MEDS ORDERED: HYDROcodone/APAP 5/325 MG 1 TAB TAB PO PRN ×2 (13:55)
--- NOTE | 2017-12-09 14:01 | NUR ---
spoke with dr yi
[2017-12-09 14:06] LABS: APPEARANCE,URINE HAZY (CLEAR); BILIRUBIN,URINE NEGATIVE (NEGATIVE); BLOOD, URINE 2+ (NEGATIVE); COLOR,URINE YELLOW (YELLOW); LEUKOCYTE ESTERASE ,URINE 2+ (NEGATIVE); NITRITE, URINE NEGATIVE (NEGATIVE); UGLUCOSE NEGATIVE (NEGATIVE)
[2017-12-09 14:21] LABS: RBC,URINE 20-50 /HPF (0-5); WBC,URINE TOO MANY TO COUNT /HPF (0-5)
[2017-12-09 15:09] VITALS: BP 118/60
[2017-12-09] MEDS ORDERED: ALBUMIN HUMAN 25% 100 ML IV SCH (16:00)
--- NOTE | 2017-12-09 16:17 | NUR ---
PT TAKEN TO THE FLOOR BY AMINATA FRAGA, EMT JUANITO, AND RT CREW
--- NOTE | 2017-12-09 16:17 | NUR ---
Patient will be admitted to care of DR. CINTRON. Admited to TELE. Will go to room 123B. Belongings list completed. Report to AMINATA RODRIGUEZ.
[2017-12-09 16:30] VITALS: BP 132/63
--- NOTE | 2017-12-09 16:30 | NUR ---
PATIENT WAS TRANSFERRED FROM ER WITH [facility]. REPORT WAS GIVEN AT BEDSIDE. PATIENT AWAKE, ALERT. RESPIRATION EVEN, UNLABOR ON TRACH TO [facility]. SKIN DRY AND WARM. IV PATENT AND INTACT. VS WAS TAKEN. MRSA WAS SWABBED, ROD MILL OPERATOR WAS PLACED. MED WAS GIVEN. PATIENT WAS ORIENTED TO ROOM , STAFF, AND CALL LIGHT. PLAN OF CARE WAS DISCUSSED WITH PATIENT. BED AT LOW POSITION, SIDE RAILS UP. CALL LIGHT WITHIN REACH. FAMILY AT BEDSIDE
[2017-12-09 17:02] VITALS: BP 115/55
[2017-12-09] MEDS ORDERED: FUROSEMIDE 40 MG/4 ML VIAL IVP SCH (17:30)
--- NOTE | 2017-12-09 18:15 | NUR ---
PATIENT WAS SLEEPING COMFORTABLY, EASILY AROUSABLE BY NAME. RESPIRATION EVEN, UNLABOR ON VENT. NO DISTRESS NOTED AT THIS TIME. PATIENT STATED SHE WANTS TO EAT. EXPLAINED TO PATIENT THE SWALLOW EVAL NEEDS TO BE DONE. PATIENT VERBALIZED UNDERSTANDING. FAMILY AT BEDSIDE. CALL LIGHT WITHIN REACH
--- NOTE | 2017-12-09 19:21 | NUR ---
ENDORSEMENT GIVEN TO THE CUSTOM SHOEMAKER NURSE. PATIENT IS STABLE AT THIS TIME
--- NOTE | 2017-12-09 19:25 | NUR ---
RECEIVED REPORT FROM DAYSHIFT NURSE AT BEDSIDE FOR CONTINUITY OF CARE. PT AAOX2. UNABLE TO SPEAK AT THIS TIME. IV NOTED R HAND 22G SALINE LOCK. HAS BLE +2 EDEMA. SACRAL REDNESS. NPO UNTIL SWALLOW EVAL DONE. PT TRACH TO VENT. BED LOWERED CALL LIGHT WITHIN REACH WILL CONTINUE TO MONITOR.
[2017-12-09 20:00] VITALS: BP 122/66
[2017-12-09] MEDS ORDERED: INSULIN LISPRO SLIDING SCALE 100 UNITS/ML VIAL SUBQ PRN (20:35)
[2017-12-09] MEDS ORDERED: DEXTROSE 50% 50 ML SYR IVP PRN (20:35)
--- NOTE | 2017-12-09 20:47 | NUR ---
US TECH CALLED TO FOLLOW UP ON US GUIDED THORACENTESIS AND THAT OTHER ORDERS NEEDED TO BE IN PLACE IN ORDER FOR US GUIDED THORACENTESIS CAN BE DONE. PER FAMILY REQUEST= DECLINE THORACENTESIS. Independa MADE AWARE. AND WILL ENDORSE TO DAYSHIFT.
[2017-12-09] MEDS: CHOLESTYRAMINE 4 GM/9 GM PKT PO SCH (21:00)
[2017-12-09] MEDS: DOCUSATE SODIUM 100 MG GELCAP PO SCH (21:00)
[2017-12-09] MEDS: BLOOD GLUCOSE MONITORING 1 DEV DEV FS SCH (21:35)
--- NOTE | 2017-12-09 21:36 | NUR ---
SWALLOW EVALUATION TO BE DONE TOMORROW AND PMV PLACEMENT TOMORROW. NPO FOR TODAY NO MEDS GIVEN. MD AWARE.
[2017-12-10] VITALS: BP 112/62
--- NOTE | 2017-12-10 00:52 | NUR ---
CHANGED PT AND REPOSITION. NO SOB NO S/S OF DISTRESS ON BEDSIDE O2 MONITORING.WILL CONTINUE TO MONITOR.
[2017-12-10 04:00] VITALS: BP 134/75
[2017-12-10] MEDS: BLOOD GLUCOSE MONITORING 1 DEV DEV FS SCH ×4 (05:26→20:40)
--- NOTE | 2017-12-10 05:52 | NUR ---
RT SUCTION PT AND PT HAS BLEEDING THROUGH SHIFT 30ML BLOOD SUCTION THROUGH TRACH.
--- NOTE | 2017-12-10 06:17 | NUR ---
PATIENT IS RESTING. WAKENED SLIGHTLY AT MY VOICE. VENT PLUG IS IN RED OUTLET. ALARMS ARE ON AND AUDIBLE.
--- NOTE | 2017-12-10 07:27 | NUR ---
ENDORSED REPORT TO DAYSHIFT NURSE AT BEDSIDE FOR CONTINUITY OF CARE.
--- NOTE | 2017-12-10 07:28 | NUR ---
RECEIVED REPORT FROM PM NURSE AT BEDSIDE . PT ON TRACH TO VENT SETTING. HAS IV ON RT FA 22G, IVF 0.9 NS INFUSING AT 10ML/HR TKO. SKIN IS INTACT. PT ON FALL RISK PRECAUTION, ALL SAFETY MEASURE IN PLACE. NO SIGN OF RESPIRATORY DISTRESS. PER PM NURSE, SUCTION 30 ML BLOOD MIXED SECRETION FROM TRACH, HAS SOME BLOOD RESIDUAL SECRETION IN THE SUCTION CATHETER. VS NOTED. HAS 100.4 FEVER. STARTED COLD COMPRESSION. PT UNABLE TO SWALLOW, DUE FOR SPEECH EVAL TODAY. WILL CONTINUE TO MONITOR PT.
[2017-12-10 07:59] LABS: BASOPHILS % (AUTO) 0.1 % (0.0-2.0); EOSINOPHILS % (AUTO) 0.1 % (0.0-4.0); HEMATOCRIT 26.8 % (36-48); HEMOGLOBIN 8.9 g/dL (12.0-16.0); LYMPHOCYTES # (AUTO) 0.9 K/uL (2.5-16.5); LYMPHOCYTES % (AUTO) 8.2 % (20.5-51.1); MEAN CORPUSCULAR HEMOGLOBIN 30 pg (27-31); MEAN CORPUSCULAR HGB CONC 33 g/dL (33-37); MEAN CORPUSCULAR VOLUME 89.8 fL (80-94); MONOCYTES % (AUTO) 9.2 % (1.7-9.3); NEUTROPHILS # (AUTO) 8.9 K/uL (1.8-7.7); NEUTROPHILS % (AUTO) 82.4 % (42.2-75.2); PLATELET COUNT (AUTO) 301 K/uL (140-450); RED BLOOD CELL COUNT(AUTO) 2.99 MIL/uL (4.20-5.40); RED CELL DISTRIBUTION WIDTH 16.5 % (11.6-13.7); WHITE BLOOD COUNT (AUTO) 10.8 K/uL (4.8-10.8)
[2017-12-10 08:00] VITALS: BP 138/72
--- NOTE | 2017-12-10 08:00 | NUR ---
CHECKED ON PT. HAS TEMP 100.4. PT ON NPO, DUE FOR SPEECH EVAL. STARTED COLD COMPRESSION FOR THE PT. WILL CONTINUE TO MONITOR PT TEMPERATURE. WILL CONTINUE TO MONITOR PT.
[2017-12-10 08:43] LABS: PHOSPHORUS 3.7 mg/dL (2.5-4.9)
[2017-12-10 08:50] LABS: ALBUMIN 1.7 g/dL (3.4-5.0); ANION GAP 13.5 (8-16); CARBON DIOXIDE 23.2 mmol/L (21-32); CREATININE 1.9 mg/dL (0.6-1.3); PHOSPHORUS 3.7 mg/dL (2.5-4.9); POTASSIUM 4.7 mmol/L (3.5-5.1); TOTAL BILIRUBIN 0.8 mg/dL (0.0-1.0)
--- NOTE | 2017-12-10 09:04 | NUR ---
PATIENT HAS BEEN SCREENED AND CATEGORIZED MODERATE NUTRITION RISK. PATIENT WILL BE SEEN WITHIN 3-5 DAYS OF ADMISSION. 12/12/17 12/14/[address]
--- NOTE | 2017-12-10 09:15 | NUR ---
CHECKED ON PT. CHECKED PT TEMP 99.5 F. CONTINUE COLD COMPRESSION. INFORMED HER THAT DOCTOR HAS JOHNSON CATHETER INSERTION ORDER ON PT. WANTS FEMALE NURSE TO DO IT. CHARGE NURSE NOTIFIED. AMINATA GODDARD WILL HELP WITH INSERTION. WILL CONTINUE TO MONITOR PT.
[2017-12-10] MEDS ORDERED: ALBUMIN HUMAN 25% 100 ML IV SCH (09:30)
[2017-12-10] MEDS: DOCUSATE SODIUM 100 MG GELCAP PO SCH ×2 (10:32→20:42)
[2017-12-10] MEDS: CHOLESTYRAMINE 4 GM/9 GM PKT PO SCH ×2 (10:32→20:42)
[2017-12-10] MEDS: ASPIRIN 81 MG TAB.CHEW PO SCH (10:32)
[2017-12-10] MEDS: ESCITALOPRAM 20 MG TAB PO SCH (10:32)
--- NOTE | 2017-12-10 10:32 | NUR ---
SPEECH PATHOLOGY NOTE S.T. bedside swallow eval order received, chart reviewed. Pt seen at bedside with daughter present. RT Ashley called in. Pt was suctioned via inline trach tubing, yielding large amount of fresh blood mixed with secretions. This is a contraindication for PMV use as well as P.O. intake. At this time, swallow eval is not appropriate. D/w pt and daughter, who communicated understanding. Will recheck tomorrow.
--- NOTE | 2017-12-10 10:35 | NUR ---
ALL ORAL MEDS ON HOLD PER RT NOTES. PT SWALLOW EVAL DONE. NOT SAFE FOR PO INTAKE. CHARGE NURSE AWARE. WILL CONTINUE TO MONITOR PT. DAUGHTER AT THE BEDSIDE. WILL CONTINUE TO MONITOR PT.
--- NOTE | 2017-12-10 10:53 | NUR ---
TALKED TO RT FOR SUCTION SPECIMEN COLLECTION AND SENT TO LAB. STATES WAS COLLECTED YESTERDAY AND WAS SENT TO LAB.
--- NOTE | 2017-12-10 11:27 | NUR ---
vent check, no sxn needed at this time airway is patent
[2017-12-10 12:00] VITALS: BP 137/92
[2017-12-10] MEDS ORDERED: FUROSEMIDE 40 MG/4 ML VIAL IVP SCH (12:00)
[2017-12-10] MEDS: DEXT 5% / NACL 0.45% 1,000 ML IV SCH (12:39)
--- NOTE | 2017-12-10 12:52 | NUR ---
PT STTAES TO HAVE CHEST TIGHTNESS. VENT ALARM FOR LEAK , CALLED RT. RT ADJUSTING THE VENT PARAMETER, TALKING TO DAUGHTER. ALL MEDS ADMINISTERED SCHEDULED. WILL CONTINUE TO MONITOR PT.
[2017-12-10] MEDS ORDERED: ALBUTEROL SULFATE/IPRATROPIU 3 ML SOL IH PRN (13:25)
[2017-12-10] MEDS: PIPER/TAZO 3.375GM/D5W PREMIX 50 ML IV SCH ×2 (13:39→20:42)
[2017-12-10] MEDS: SODIUM FERRIC GLUCONATE 125 MG in NACL 0.9% 100 ML IV SCH (13:48)
--- NOTE | 2017-12-10 14:07 | NUR ---
VENT CHECK SXN PT LARGE AMT OF THICK BLOODY SECRETIONS CHANGED VENT CIRCUIT AND HME
--- NOTE | 2017-12-10 15:48 | NUR ---
ADMISSION CHART REVIEW DONE FAXED INITIAL REVIEW TO [facility] [phone] PHONE DELORIS [phone].
[2017-12-10 16:00] VITALS: BP 145/75
--- NOTE | 2017-12-10 16:00 | NUR ---
CHECKED ON PT. VS STABLE, TEMP 98.5, RR 22, NO SIGN OF RESPIRATORY DISTRESS NOTED. CALLED RT FRO THE VENT LEAK, STATES ITS NORMAL VENT IS ON COMPENSATION MODE TO SUPPLEMENT THE O2 TO PT. DAUGHTER AT THE BEDSIDE. BS NOTED 73 ,PT ON 5%-0.45 NS INFUSING AT 50 ML/HR. ALL SAFETY MEASURE IN PLACE. NO SIGN OF DISTRESS.PT ASKING IF SHE CAN DRINK WATER OR JUICE. EDUCATED HER ON ASPIRATION RISK, SPEECH THERAPIST EVALUATED THAT PO INTAKE IS CONTRAINDICATED FOR HER SAFETY.DAUGHTER ALSO PRESENT AT THE BEDSIDE. WILL CONTINUE TO MONITOR PT.
[2017-12-10] MEDS ORDERED: LEVOFLOXACIN 500 MG/D5W PREMIX 100 ML IV SCH (17:30)
--- NOTE | 2017-12-10 17:31 | NUR ---
ADMINISTERED LEVOFLOXACIN ORDERED TO PT. RESTING WELL ON HER HER. NO SIGN OF DISTRESS NOTED. ALL SAEFTY MEASURE IN PLACE. WILL CONTINUE TO MONITOR PT.
--- NOTE | 2017-12-10 18:30 | NUR ---
PT FEELS NAUSEATED. SUCTIONED HER. CALLED RT. PT SITTING ON HER BED. RT AT THE BEDSIDE. WORKING O HER VENT SETTING. PT ASKING ABOUT WATER, PT NPO , ASPIRATION PRECAUTION . DAUGHTER AT THE BEDSIDE. WILL CONTINUE TO MONITOR PT.
[2017-12-10] MEDS: ALBUTEROL SULFATE/IPRATROPIU 3 ML SOL IH SCH (18:51)
[2017-12-10] MEDS: ACETYLCYSTEINE 10% (100 MG/ML) 100 MG/ML VIAL INH SCH (18:52)
--- NOTE | 2017-12-10 19:30 | NUR ---
RECEIVED FROM AM RN IN BED AWAKE AND ALERT. TRACH TO VENT/CHRONIC HISTORY. ABLE TO NOD HEAD. ALERT AND ORIENTED. SITTING AT THIS TIME ON SIDE OF BED. NPO STATUS. FOR FURTHER SWALLOW EVALUATION TOMORROW. DX. BILATERAL PNA AND RENAL INSUFFICIENCY . SKIN INTACT. AFEBRILE AT THIS TIME. CALL LIGHT WITH IN REACH. NO NOTED HYPOGLYCEMIA. WITH D5 1/2 NS INFUSING WELL. IVF SITE TO RIGHT HAND #22 INTACT AND NO INFILTRATION. CARE PLANS FOR THE NIGHT DISCUSSED WITH HER AND FAMILY MEMBERS . ON BREATHING TREATMENTS.
--- NOTE | 2017-12-10 19:30 | NUR ---
JOHNSON CATHETER INSERTED BY AMINATA GODDARD . TOLERATED WELL. INSERTED TIME 1130 AM. URINE DRAINING WELL IN FC. WILL CONTINUE TO MONITOR PT.
--- NOTE | 2017-12-10 19:36 | NUR ---
ENDORSED PT TO PM NURSE. PT IN STABLE CONDITION.
[2017-12-10 20:00] VITALS: BP 137/70
--- NOTE | 2017-12-10 20:42 | NUR ---
PT. P.O. MEDICATIONS NOT ADMINISTERED RT FAILED SWALLOW EVALUATION TODAY. TO RE-EVALUATE FURTHER TOMORROW.
--- NOTE | 2017-12-10 21:29 | NUR ---
MD GARCIA IN HERE TO SEE PT. DAUGHTER STILL HERE VISITING. NO COMPLAINTS DONE. PT. ATTENDED TO BY RESPIRATORY THERAPIST.
--- NOTE | 2017-12-10 21:50 | NUR ---
VENTILATOR WAS EXCHANGED DUE TO CONSTANT ALARMING CIRCUIT LEAK AND CIRCUIT WAS CHANGED BY DAY STAFF, AND LOW TIDAL VOLUME WHILE EXHALED VOLUME IS DISPLAYING CORRECTLY. PATIENTS SAO2 HAS BEEN 99-100% RR-22 BREATH SOUNDS CLEAR AND NO SIGNS OF RESPIRATORY DISTRESS. BEFORE OR AFTER EXCHANGED VENTILATOR
[2017-12-11 00:25] VITALS: BP 132/64
[2017-12-11] MEDS: ACETYLCYSTEINE 10% (100 MG/ML) 100 MG/ML VIAL INH SCH ×4 (00:56→21:10)
[2017-12-11] MEDS: ALBUTEROL SULFATE/IPRATROPIU 3 ML SOL IH SCH ×4 (00:56→20:11)
--- NOTE | 2017-12-11 01:15 | NUR ---
SLEEPING. NO RESTLESSNESS NOTED.
--- NOTE | 2017-12-11 01:21 | NUR ---
PT. SLEEPING WELL. TURNED TO SIDES Q 2H AND ADVISED TO STAY ON TURNED SIDE. PILLOW SUPPORT TO PRESSURE AREAS. PT. ABLE TO TURN TO SIDES AND MOVE BY HERSELF. BED ALARM ON. CALL LIGHT WITH IN REACH.
--- NOTE | 2017-12-11 02:40 | NUR ---
SLEEPING WELL. TURNED TO SIDES Q 2H. NEEDS ANTICIPATED AND WILL BE MET. ABLE TO USE CALL LIGHT FOR HELP.
[2017-12-11 04:42] VITALS: BP 121/77
--- NOTE | 2017-12-11 04:47 | NUR ---
SLEEPS WELL . WAKES UP EASILY WHEN TOUCHED. VITAL SIGNS TAKEN. NO RESTLESSNESS NOTED. CALL LIGHT WITH N REACH. TELEMETRY MONITORING. NEEDS ANTICIPATED AND MET.
[2017-12-11] MEDS: PIPER/TAZO 3.375GM/D5W PREMIX 50 ML IV SCH ×3 (05:04→20:34)
[2017-12-11] MEDS: BLOOD GLUCOSE MONITORING 1 DEV DEV FS SCH ×4 (05:06→20:34)
--- NOTE | 2017-12-11 05:45 | NUR ---
TURNED TO SIDES Q 2H. NEEDS ANTICIPATED AND MET. AM PERSONAL HYGIENE RENDERED BY CNAS. FLACC 0-. TELEMETRY MONITORING. CALL LIGHT WITH IN REACH. BREATHING TREATMENTS RENDERED BY RESPIRATORY THERAPIST ORDERED AND SUCTION BY RT WELL. PT. COMFORTABLE THE WHOLE SHIFT.
--- NOTE | 2017-12-11 07:30 | NUR ---
RECEIVED REPORT FROM NIGHTSHIFT NURSE AT BEDSIDE. PATIENT IS AWAKE AT THIS TIME. PATIENT IS APHASIC BUT ABLE TO MOUTH OUT WORDS. PATIENT HAS AN IV NOTED ON HER RIGHT HAND 22G RUNNING D5 1/2 NS AT 50 ML/HR. NO DISTRESS NOTED AT THIS TIME. NO PAIN NOTED. PATIENT IS TRACH TO VENT WITH SETTING AC 22, T VOLUME 450, PEEP 5, FIO2 35. UPDATED BOARD IN PATIENT'S ROOM. BED ALARM ON. WILL CONTINUE TO MONITOR PATIENT.
--- NOTE | 2017-12-11 07:40 | NUR ---
ENDORSED TO THE NEXT RN FOR CONTINUITY OF CARE. AWAKE AND ALERT. NODS HEAD AND MOUTHS HER NEEDS . TRACH TO VENT. ABLE TO USE CALL LIGHT FOR HELP. DENIES PAIN THIS SHIFT.
[2017-12-11 07:56] LABS: BASOPHILS % (AUTO) 0.1 % (0.0-2.0); EOSINOPHILS % (AUTO) 0.2 % (0.0-4.0); HEMATOCRIT 27.6 % (36-48); LYMPHOCYTES % (AUTO) 7.4 % (20.5-51.1); MEAN CORPUSCULAR HEMOGLOBIN 29 pg (27-31); MEAN CORPUSCULAR HGB CONC 33 g/dL (33-37); MEAN CORPUSCULAR VOLUME 89.5 fL (80-94); MONOCYTES # (AUTO) 1.3 K/uL (0.8-1.0); MONOCYTES % (AUTO) 9.7 % (1.7-9.3); NEUTROPHILS # (AUTO) 11.2 K/uL (1.8-7.7); NEUTROPHILS % (AUTO) 82.6 % (42.2-75.2); PLATELET COUNT (AUTO) 281 K/uL (140-450); RED BLOOD CELL COUNT(AUTO) 3.08 MIL/uL (4.20-5.40); WHITE BLOOD COUNT (AUTO) 13.6 K/uL (4.8-10.8)
--- NOTE | 2017-12-11 07:56 | NUR ---
RECIVED PT ON VENT WITH SETTINGS CHARTED BREATH SOUNDS PRESENT BILAT CLEAR TRACH SITE SECURE SXN PGT WITH MIN AMT DIOMEDES SECS VENT PLUGGED INTO RED OUTLET AMBU BAG AT BEDSIDE WILL CONTINUE TO MONITOR PT ON VENT
[2017-12-11 08:00] VITALS: BP 125/56
[2017-12-11] MEDS: DEXT 5% / NACL 0.45% 1,000 ML IV SCH (08:05)
[2017-12-11 08:14] LABS: ALBUMIN 1.7 g/dL (3.4-5.0); ANION GAP 12.7 (8-16); CARBON DIOXIDE 24.7 mmol/L (21-32); CREATININE 1.8 mg/dL (0.6-1.3); POTASSIUM 3.4 mmol/L (3.5-5.1); TOTAL BILIRUBIN 0.9 mg/dL (0.0-1.0)
[2017-12-11] MEDS: DOCUSATE SODIUM 100 MG GELCAP PO SCH ×2 (09:00→20:34)
[2017-12-11] MEDS: CHOLESTYRAMINE 4 GM/9 GM PKT PO SCH ×2 (09:00→20:35)
[2017-12-11] MEDS: ESCITALOPRAM 20 MG TAB PO SCH (09:00)
[2017-12-11] MEDS: ASPIRIN 81 MG TAB.CHEW PO SCH (09:00)
--- NOTE | 2017-12-11 09:15 | NUR ---
PER REPORT FROM NIGHTSHIFT NURSE, PATIENT IS TO BE NPO OF ALL MEDICATIONS AND FOOD UNTIL SWALLOW EVAL. WILL CONTINUE TO MONITOR PATIENT.
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
--- NOTE | 2017-12-11 10:40 | NUR ---
INFORMED DRXenia OF PATIENT'S POTASSIUM LEVEL OF 3.4. AWAITING ORDERS.
--- NOTE | 2017-12-11 11:34 | NUR ---
DAUGHTER AT BEDSIDE AT THIS TIME. PATIENT IN STABLE CONDITION.
[2017-12-11 12:00] VITALS: BP 130/60
--- NOTE | 2017-12-11 13:27 | NUR ---
PATIENT RESTING AT THIS TIME. NO DISTRESS NOTED. WILL CONTINUE TO MONITOR PATIENT
[2017-12-11] MEDS: SODIUM FERRIC GLUCONATE 125 MG in NACL 0.9% 100 ML IV SCH (13:51)
--- NOTE | 2017-12-11 15:08 | NUR ---
Sheet Metal Duct Worker Supervisor Note: Late entry for 12/10/17: Royce Watkins from [facility], patient is on a 7 day bed hold and is one of their shelter patients. She stated patient does not have an existing Advance Directives and her daughter Dianne Gong is patient's healthcare decision maker.
--- NOTE | 2017-12-11 15:54 | NUR ---
PATIENT WATCHING TELEVISION. NO DISTRESS NOTED. WILL CONTINUE TO MONITOR PATIENT
[2017-12-11 16:00] VITALS: BP 136/62
--- NOTE | 2017-12-11 17:01 | NUR ---
continued to monitor pt on with settings as charted breath sounds present bilat with scatterd rales sxn pt with min amt brownish secs trach site secure ambu bag at bedside vent plugged into red outlet
[2017-12-11] MEDS: LEVOFLOXACIN 250 MG/D5 PREMIX 50 ML IV SCH (17:25)
--- NOTE | 2017-12-11 17:25 | NUR ---
PAGED CRISSETTE REGARDING SPEECH THERAPIST AND SWALLOW EVAL FOR PATIENT. NO RESPONSE YET
--- NOTE | 2017-12-11 18:01 | NUR ---
SPEECH THERAPIST AT BEDSIDE PERFORMING SWALLOW EVALUATION. AWAITING RESULTS.
--- NOTE | 2017-12-11 18:57 | NUR ---
* ST NOTE * Pt seen at bedside w/daughter, nsg & RTs present. Pt consenting to evaluation w/daughter present. Pt alert, cooperative and engaged throughout session, reporting no c/o pain at this time. Bedside dysphagia and oral mechanism exams completed. See evaluation report for further details. Clinician requesting for RT to deflate pt's cuff at this time. Clinician also inquiring as to whether RTs have PMV for pt use, w/RTs leaving room to obtain PMV, but later not utilizing PMV in place during swallow evaluation. RT also re-inflating cuff during pt's PO intake despite clinician's request and explanation as to why cuff should be deflated during PO intake. Acute care also not carrying blue dye for Blue Dye Test at this time, but suggesting to utilize vanilla pudding and grape juice as substitutes, despite grape juice not being colored purple. Pt nonetheless tolerating 5/5 alternating PO trials of regular solid saltine crackers; 7/7 alternating PO trials of puree vanilla pudding 3-5 CCs at a time, along with 8/8 alternating PO trials of thin liquid grape juice via a cup and a straw, all w/o s/s of aspiration or choking. Upon suctioning, RT observing no specific vanilla/white colored secretions mixed in with pt's baseline brownish-red secretions, w/pt passing bedside swallow exam at this time. Pt, caregiver/daughter, RTs, & nsg education completed regarding aspiration precautions and safe swallow compensatory strategies pt and caregivers/family or staff could utilize to aid pt w/swallow function. RTs and nsg education also completed regarding deflating pt's cuff prior to PO intake of solids/liquids/medication, w/nsg and RTs agreeable. It is thus recommended pt's PO diet consistency be modified to mechanical soft-ground textures w/thin liquids for all meals, w/strict aspiration precautions in place at during pt's PO intake of medication/solids/liquids. It is also recommended pt receive skilled POLYSILICON PREPARATION WORKER services to further address swallow function, w/pt, caregiver/daughter, RTs and nsg verbalizing understanding and agreement w/clinician's recommendations. ST to ff 2x/week for 1 week. Pt, caregiver/daughter, nsg & RTs education completed regarding results of evaluation; benefits of abiding by aspiration precautions and recommended PO diet consistency; benefits of receiving skilled POLYSILICON PREPARATION WORKER services; POC; and prognosis for improvement; with pt, caregiver/daughter, nsg & RT verbalizing understanding and agreement w/clinician's recommendations. Recommend: - PO diet consistency of MECANICAL SOFT-GROUND TEXTURES W/THIN LIQUIDS for all meals - MAINTAIN STRICT ASPIRATION PRECAUTIONS DURING PO INTAKE AND PO MEDICATION ADMINISTRATION - Pt may require setup of tray/meal. - Assure pt is SITTING UPRIGHT AT 80-90 DEGREE ANGLE, EATS SLOWLY, ALTERNATES BTWN SOLIDS & LIQUIDS, AND UTILIZES SMALL BITES/SIPS during self-feeding - Suction PRN ST to ff x2 in next 1 week. G8996 CK G8997 CJ NOMS Level 3 Time In/Out: 17:45 - 18:15
--- NOTE | 2017-12-11 19:10 | NUR ---
GAVE REPORT TO NIGHTSHIFT NURSE AT BEDSIDE. PATIENT IS IN STABLE CONDITION.
--- NOTE | 2017-12-11 19:15 | NUR ---
RECEIVED FROM AM RN IN BED WITH FAMILY MEMBER AT BEDSIDE. NO SOB. TRACH TO VENT. PT. BEING CLEANED AT THIS TIME RT WITH BM. ON IVF ABT. NEEDS WILL BE ANTICIPATED AND WILL BE MET. PT. ABLE TO MOUTH WORDS FOR SIMPLE NEEDS. CONTACT ISOLATION PRECAUTION OBSERVED . IVF TO RIGHT WRIST IN PLACE AND NO S/S OF INFILTRATION. TELEMETRY MONITORING.
--- NOTE | 2017-12-11 19:37 | NUR ---
RECEIVED PATIENT ON CURRENT VENT SETTINGS: AC/VC 22 VT 450 PEEP 5 FIO2 35%. PATIENT TRACH'D WITH A PORTEX 7 THAT IS SECURE WITH TRACH TIES. STOMA SIGHT IS CLEAN, HEALTHY AND INTACT. GAUZE/DRESSING IS CLEAN AND DRY. PATIENT HAD A SWALLOW EVAL TODAY AND CUFF REMAINED DEFLATED PER PATIENTS REQUEST. RN AND DAUGHTER AT BEDSIDE AWARE THAT PT'S CUFF IS DEFLATED. PT IS AWAKE, ALERT AND ORIENTED. TREATMENT OF DUONEB GIVEN INLINE WITH VENT WITH NO ADVERSE EFFECTS. MUCOMYST 10% WAS NOT AVAILABLE IN [facility], ADVISED THE RN AND BLOW PIT HELPER. B/S: COARSE BILATERALLY. VENT BRAKES ON AND PLUGGED INTO RED OUTLET. AMBU BAG AT BEDSIDE.
[2017-12-11 19:46] VITALS: BP 126/60
--- NOTE | 2017-12-11 20:35 | NUR ---
P.O COLACE NOT ADMINISTERED RT WITH LIQUIDY STOOL. ON IV ABT . NEEDS ANTICIPATED AND WILL BE MET. MD GUTIÉRREZ FROZEN YOGURT MAKER IN HERE TO SEE PT.
--- NOTE | 2017-12-11 21:10 | NUR ---
MUCOMYST 10% GIVEN INLINE. TREATMENT TOLERATED WELL WITH NO ADVERSE EFFECTS.
[2017-12-11] MEDS ORDERED: MEROPENEM 500 MG VIAL IV ONE (21:13)
[2017-12-11] MEDS: MEROPENEM 500 MG in NACL 0.9% 50 ML IV SCH (21:19)
[2017-12-11] MEDS ORDERED: NACL 0.9% IRR 250 ML BOTTLE IR PRN (22:05)
[2017-12-11] MEDS ORDERED: Z-GUARD PASTE TP PRN (22:05)
--- NOTE | 2017-12-11 23:00 | NUR ---
NEW IVF LINE INSERTED BY CHARGE NURSE TO LEFT HAND#22 RT OLD IVF SITE TO RIGHT FOREARM TENDER. TIP INTACT. COVERED WITH BAND AID. PT. TURNED TO SIDES Q 2H. TOTAL CARE. PILLOW SUPPORT TO PRESSURE AREAS. PT. REQUESTED FOR PUDDING. FED WITH VANILLA PUDDING. TOLERATED WELL. PT. ENCOURAGED TO SLEEP. TELEMETRY MONITORING.
--- NOTE | 2017-12-11 23:33 | NUR ---
PATIENT AGREED TO HAVE CUFF INFLATED. COMPLETED VENT CHECK. AIRWAY PATENT AND CUFF PRESSURE READING 30 CM H2O
[2017-12-12 00:29] VITALS: BP 121/79
[2017-12-12] MEDS: Z-GUARD PASTE TP SCH ×2 (00:34→13:00)
[2017-12-12] MEDS: NACL 0.9% IRR 250 ML BOTTLE IR SCH ×2 (00:34→13:00)
[2017-12-12] MEDS: ALBUTEROL SULFATE/IPRATROPIU 3 ML SOL IH SCH ×3 (01:46→13:06)
[2017-12-12] MEDS: ACETYLCYSTEINE 10% (100 MG/ML) 100 MG/ML VIAL INH SCH ×3 (01:46→13:09)
--- NOTE | 2017-12-12 01:46 | NUR ---
TREATMENT GIVEN INLINE WITH VENT. DUONEB AND MUCOMYST 10%. AIRWAY IS PATENT AND PT TOLERATED TX WELL.
--- NOTE | 2017-12-12 02:00 | NUR ---
PT. REQUESTED TO BE CLEANED UP RT STATED SHE FEELS LIKE SHE HAS BM. CLEANED BY CNAS. TURNED TO SIDES. PILLOW SUPPORT IN PLACE. REQUESTED TO STAY ON SIDE TURNED BY CNAS. PT. HAVE TENDENCY TO TURN BACK ON SUPINE POSITION. ORIENTED TO PROS AND CONS OF TURNING. PT. NOTED ABLE TO TALK AND VERBALIZE SIMPLE NEEDS IN CHINESE IN LOW TONE VOICE. DENIES PAIN.
[2017-12-12] MEDS: DEXT 5% / NACL 0.45% 1,000 ML IV SCH (03:55)
--- NOTE | 2017-12-12 04:10 | NUR ---
PT. AWAKE AND WATCHING NEWS ON THE TV. SMILING. NO COMPLAINTS DONE. PT. TURNED TO SIDES Q 2H BY CNAS. PILLOW SUPPORT TO PRESSURE AREAS. NEW IVF SITE INSERTED THIS A.M. INTACT AND NO INFILTRATION NOTED. TELEMETRY MONITORING. NSR ON MONITOR. JOHNSON CATHETER IN PLACE AND DRAINING WELL WITH YELLOW URINE.
[2017-12-12 04:18] VITALS: BP 118/58
[2017-12-12] MEDS ORDERED: MEROPENEM 500 MG VIAL IV ONE (05:02)
[2017-12-12] MEDS: MEROPENEM 500 MG in NACL 0.9% 50 ML IV SCH ×2 (05:03→12:18)
[2017-12-12] MEDS: BLOOD GLUCOSE MONITORING 1 DEV DEV FS SCH ×3 (05:08→17:25)
--- NOTE | 2017-12-12 05:30 | NUR ---
VENT CHECK, TRACH CARE AND PATIENT ASSESSMENT COMPLETED. NO CHANGES MADE TO VENT SETTINGS. PATIENT AWAKE WHEN ENTERED ROOM. B/S: COARSE CRACKLES. SUCTIONED PATIENT AND RECEIVED SMALL, BLOODY AND THICK SECRETIONS. CHANGED HME. CHANGED INNER CANNULA AND TRACH GAUZE/DRESSING. STOMA IS CLEAN, AND INTACT WITH NO VISIBLE IRRITATION. STOMA IS DRAINING SMALL YELLOW FLUID.
--- NOTE | 2017-12-12 06:56 | NUR ---
RECEIVED TRACH PT WITH A PORTEX 7 TRACH ON VENT. SETTINGS AC 22, VT 450, PEEP 5 AND FIO2 35%. TRACH IS SECURE WITH A PATENT AIRWAY. PT IS AWAKE AND ALERT NOT IN ANY DISTRESS AT THIS TIME. VENT IS PLUGGED INTO A RED OUTLET WITH ALARMS ON AND FUNCTIONING. WILL CONTINUE TO MONITOR.
[2017-12-12 06:58] LABS: BASOPHILS % (AUTO) 0.1 % (0.0-2.0); EOSINOPHILS # (AUTO) 0.1 K/uL (0-0.4); EOSINOPHILS % (AUTO) 0.6 % (0.0-4.0); HEMATOCRIT 27.5 % (36-48); HEMOGLOBIN 8.9 g/dL (12.0-16.0); LYMPHOCYTES # (AUTO) 1.1 K/uL (2.5-16.5); LYMPHOCYTES % (AUTO) 8.6 % (20.5-51.1); MEAN CORPUSCULAR HEMOGLOBIN 29 pg (27-31); MEAN CORPUSCULAR HGB CONC 32 g/dL (33-37); MEAN CORPUSCULAR VOLUME 89.4 fL (80-94); MONOCYTES # (AUTO) 1.5 K/uL (0.8-1.0); MONOCYTES % (AUTO) 11.1 % (1.7-9.3); NEUTROPHILS # (AUTO) 10.5 K/uL (1.8-7.7); NEUTROPHILS % (AUTO) 79.6 % (42.2-75.2); PLATELET COUNT (AUTO) 351 K/uL (140-450); RED BLOOD CELL COUNT(AUTO) 3.07 MIL/uL (4.20-5.40); RED CELL DISTRIBUTION WIDTH 17.1 % (11.6-13.7); WHITE BLOOD COUNT (AUTO) 13.1 K/uL (4.8-10.8)
--- NOTE | 2017-12-12 07:15 | NUR ---
PT. AWAKE . WATCHING TV. ENDORSED TO THE NEXT RN FOR CONTINUITY OF CARE. NO COMPLAINTS DONE. TELEMETRY MONITORING . ABLE TO USE CALL LIGHT FOR HELP.
--- NOTE | 2017-12-12 07:15 | NUR ---
RECEIVED REPORT FROM NIGHTSHIFT NURSE. PATIENT IS ASLEEP AT THIS TIME. PATIENT HAS AN IV ON LEFT HAND 22G. NO DISTRESS NOTED FROM PATIENT. NO PAIN NOTED. CALL LIGHT WITHIN REACH OF PATIENT. VENT SETTINGS CHECKED. LOWERED BED OF PATIENT. BED ALARM ACTIVE. APPROPRIATE SIGNS PLACED OUTSIDE OF PATIENT'S ROOM. WILL CONTINUE TO MONITOR PATIENT.
[2017-12-12 07:37] LABS: ALBUMIN 1.5 g/dL (3.4-5.0); ANION GAP 8.8 (8-16); CARBON DIOXIDE 27.3 mmol/L (21-32); CREATININE 1.7 mg/dL (0.6-1.3); POTASSIUM 3.1 mmol/L (3.5-5.1); TOTAL BILIRUBIN 0.6 mg/dL (0.0-1.0)
[2017-12-12 08:00] VITALS: BP 121/55
[2017-12-12] MEDS: CHOLESTYRAMINE 4 GM/9 GM PKT PO SCH (08:59)
[2017-12-12] MEDS: ESCITALOPRAM 20 MG TAB PO SCH (08:59)
[2017-12-12] MEDS ORDERED: POTASSIUM CHLORIDE 10 MEQ TABER PO SCH (09:00)
[2017-12-12] MEDS: ASPIRIN 81 MG TAB.CHEW PO SCH (09:00)
[2017-12-12] MEDS ORDERED: FUROSEMIDE 20 MG TAB PO SCH (09:00)
[2017-12-12] MEDS: DOCUSATE SODIUM 100 MG GELCAP PO SCH (09:00)
--- NOTE | 2017-12-12 09:00 | NUR ---
PATIENT ABLE TO HAVE BOWEL MOVEMENTS. DOES NOT NEED COLACE AT THIS TIME.
--- NOTE | 2017-12-12 09:07 | NUR ---
PATIENT TOOK AM MEDICATIONS. PATIENT TOLERATED WELL.
--- NOTE | 2017-12-12 10:21 | NUR ---
FAXED CONCURRENT REVIEW TO [facility] [phone] PHONE DELORIS [phone]
--- NOTE | 2017-12-12 11:53 | NUR ---
PATIENT IS RESTING AT THIS TIME. NO DISTRESS NOTED. WILL CONTINUE TO MONITOR PATIENT.
[2017-12-12 12:00] VITALS: BP 126/58
[2017-12-12] MEDS: SODIUM FERRIC GLUCONATE 125 MG in NACL 0.9% 100 ML IV SCH (13:55)
--- NOTE | 2017-12-12 14:24 | NUR ---
PAGED DR. CINTRON REGARDING PATIENT'S CRITICAL MICRO VALUE OF E. COLI, MDRO, NETWORK PROGRAMMER OF THE BLOOD. AWAITING CALL BACK
[2017-12-12] MEDS ORDERED: MER500I IV (14:29)
[2017-12-12] MEDS ORDERED: LEVO750T2 IV (14:30)
--- NOTE | 2017-12-12 14:57 | NUR ---
CM NOTE FAXED ORDER TO DC BACK TO SNF ON IV ANTIBIOTICS TO [place] FAX# [phone]. PER [facility] MARCE PUENTES PH# [phone], FOR [facility] AUTH# [id number]. [facility] ASSIGNED MARCE MATSON.
--- NOTE | 2017-12-12 15:27 | NUR ---
Tax Collection Coordinator Note: I faxed patient's medical information to [facility]. Per Mehran from [facility] , patient may go to room 27A after 5pm today, she is aware of isolation, accepting physician is .
--- NOTE | 2017-12-12 15:36 | NUR ---
FROM [facility], AUTH [id number] . CALLED [facility] AND SET UP TRANSPORT FOR 7P.Arnold MALHOTRA INFORMED OF H[facility] PRINCIPAL TIME AND ROOM NUMBER [id number] AT [facility] UNDER [address]. FINNEY. MISTI COATESBEHAVIOR INTERVENTIONIST NURSE ALSO AWARE.
[2017-12-12 16:00] VITALS: BP 128/62
--- NOTE | 2017-12-12 16:22 | NUR ---
NO DISTRESS NOTED. PATIENT IS ASLEEP AT THIS TIME.
[2017-12-12] MEDS: LEVOFLOXACIN 250 MG/D5 PREMIX 50 ML IV SCH (17:25)
--- NOTE | 2017-12-12 17:47 | NUR ---
PT REMAINS ON DOCUMENTED VENT SETTINGS . TRACH REMAINS SECURE WITH A PATENT AIRWAY. DAUGHTER IS BEDSIDE AT THIS TIME. VENT ALARMS REMAIN ON AND FUNCTIONING.
--- NOTE | 2017-12-12 18:36 | NUR ---
GAVE REPORT TO VIKRAM OF [facility]. PROVIDED CALL BACK NUMBER FOR ADDITIONAL QUESTIONS.
--- NOTE | 2017-12-12 19:00 | NUR ---
PATIENT'S DAUGHTER AYESHA SIGNED ALL DISCHARGE INSTRUCTIONS. PATIENT UNABLE TO SIGN AT THIS TIME. PATIENT AWARE THAT SHE WILL BE CONTINUING IV ANTIBIOTICS AT [facility]. REMOVED IDENTIFICATION BANDS OFF PATIENT. [facility] SAFELY TRANSFERRED PATIENT [facility]O [facility]. PATIENT CONNECTED TO HEART MONITOR AND VENT. PATIENT'S DAUGHTER GATHERED BELONGINGS OF PATIENT. PATIENT LEFT WITH [facility] IN STABLE CONDITION.
== END 2017-12-12 19:00 | DRG 720 ==
LOC: MED 11:59 → MTU 13:54
PROVIDERS: ADMIT Hospitalist; ATTEND Hospitalist
PROC: 5A1945Z Respiratory Ventilation, 24-96 Consecutive Hours (ICD-10-PCS; principal; 2017-12-09)
DX: A41.51 Sepsis due to Escherichia coli [E. coli] (principal); J69.0 Pneumonitis due to inhalation of food and vomit; I50.43 Acute on chronic combined systolic (congestive) and diastolic (congestive) heart failure; E43 Unspecified severe protein-calorie malnutrition; Z99.11 Dependence on respirator [ventilator] status; J96.11 Chronic respiratory failure with hypoxia; R13.11 Dysphagia, oral phase; E11.22 Type 2 diabetes mellitus with diabetic chronic kidney disease; N17.9 Acute kidney failure, unspecified; N18.3 Chronic kidney disease, stage 3 (moderate); E87.1 Hypo-osmolality and hyponatremia; I13.0 Hypertensive heart and chronic kidney disease with heart failure and stage 1 through stage 4 chronic kidney disease, or unspecified chronic kidney disease; I48.0 Paroxysmal atrial fibrillation; E11.51 Type 2 diabetes mellitus with diabetic peripheral angiopathy without gangrene; Z16.12 Extended spectrum beta lactamase (ESBL) resistance; D64.9 Anemia, unspecified; N39.0 Urinary tract infection, site not specified; F32.9 Major depressive disorder, single episode, unspecified; K59.00 Constipation, unspecified; D63.8 Anemia in other chronic diseases classified elsewhere; B96.20 Unspecified Escherichia coli [E. coli] as the cause of diseases classified elsewhere; E87.6 Hypokalemia; Z79.2 Long term (current) use of antibiotics; Z79.82 Long term (current) use of aspirin; Z79.899 Other long term (current) drug therapy; Z86.74 Personal history of sudden cardiac arrest; Z93.1 Gastrostomy status; Z89.412 Acquired absence of left great toe; Z93.0 Tracheostomy status
CPT/HCPCS: 36415; 36600; 71045; 76770; 80053; 81001; 82140; 82728; 82803; 82948; 83540; 83605; 83880; 84100; 84300; 84484; 85025; 85610; 85730; 87040; 87070; 87081; 87086; 87186; 87205; 89220; 92610; 93005; 94003; 94640; 96361; 96365; 99291; J1815; J1940; J1956; J2185; J2543; J2916; J7030; J7620; P9046; Q0092

== ENCOUNTER 2017-12-16 21:27 | Inpatient (IN) | payer OTHER ==
[~2017-12-16] VITALS: Ht 162.6 cm; Wt 75.7 kg
[2017-12-16 21:27] VITALS: BP 109/67
[~2017-12-16 21:27] MED LIST changes: +LEVO750T2 IV; +MER500I IV
--- NOTE | 2017-12-16 21:27 | NUR ---
Dr. Ibanez evaluating patient at bedside.
--- NOTE | 2017-12-16 21:27 | NUR ---
BIBA FROM [facility] WITH C/O LOW 02 SATURATION , STARTED AT 1800HOUR, SHES VENTILATOR DEPENDENT, BS 186 MG/DL , PATIENT ALERT, AWAKE, ORIENTED X3
--- NOTE | 2017-12-16 21:27 | NUR ---
PT NERY ALS. TAKEN TO BED 10
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
[2017-12-16] MEDS ORDERED: NACL 0.9% 1,000 ML IV ONE (21:35)
--- NOTE | 2017-12-16 21:35 | NUR ---
PT ARRIVED TO ER WITH PIV IN RT HAND, DISCONTINUED UPON ARRIVAL.
[2017-12-16 21:50] VITALS: BP 137/86
[2017-12-16] MEDS ORDERED: ALBUTEROL SULFATE/IPRATROPIU 3 ML SOL IH ONE ×2 (22:00→22:05)
--- NOTE | 2017-12-16 22:01 | NUR ---
Respiratory Therapist at bedside for respiratory intervention.
[2017-12-16] MEDS ORDERED: [UNRECOGNIZED DRUG - CODE] PO (22:05)
[2017-12-16] MEDS ORDERED: GLU1I IM (22:05)
[2017-12-16] MEDS ORDERED: D50SYR IV (22:05)
[2017-12-16] MEDS ORDERED: BISA-213 RC (22:05)
[2017-12-16] MEDS ORDERED: MAGN400S60 PO (22:05)
[2017-12-16] MEDS ORDERED: ACET-2619 PO (22:05)
[2017-12-16] MEDS ORDERED: FLEPED RC (22:05)
--- NOTE | 2017-12-16 22:08 | NUR ---
RT AT BEDSIDE GIVING TREATMENT VIA TRACH/VENT. PT TOLERATED WELL.
[2017-12-16] MEDS ORDERED: methylPREDNISolone SS 125 MG/2 ML VIAL IVP ONE (22:15)
[2017-12-16] MEDS ORDERED: MAG SULF 2000 MG/WATER PREMIX 50 ML IV ONE (22:15)
[2017-12-16] MEDS ORDERED: PIPERACILLIN/TAZOBACTAM 3.375 GM in DEXTROSE 5% 50 ML IV ONE (22:15)
[2017-12-16] MEDS: NACL 0.9% 1,000 ML IV SCH (22:19)
[2017-12-16] MEDS ORDERED: ACETAMINOPHEN 325 MG TAB PO PRN (22:20)
[2017-12-16] MEDS ORDERED: ONDANSETRON 4 MG/2 ML VIAL IVP PRN (22:20)
[2017-12-16] MEDS ORDERED: ALBUTEROL 0.083% 2.5 MG/3 ML NEBU INH PRN (22:20)
[2017-12-16] MEDS ORDERED: MORPHINE SULFATE 2 MG/ML SYR IVP PRN (22:20)
[2017-12-16] MEDS ORDERED: VANCOMYCIN PER PHARMACY MC PRN (22:30)
[2017-12-16 22:31] LABS: HEMATOCRIT 32.9 % (36-48); HEMOGLOBIN 10.3 g/dL (12.0-16.0); MEAN CORPUSCULAR HEMOGLOBIN 29 pg (27-31); MEAN CORPUSCULAR HGB CONC 31 g/dL (33-37); MEAN CORPUSCULAR VOLUME 92.5 fL (80-94); PLATELET COUNT (AUTO) 566 K/uL (140-450); RED BLOOD CELL COUNT(AUTO) 3.56 MIL/uL (4.20-5.40); RED CELL DISTRIBUTION WIDTH 17.8 % (11.6-13.7)
--- NOTE | 2017-12-16 22:35 | NUR ---
# 14 FR Tinajero catheter with 10 ml utilizing sterile technique. Immediate return of 200 ml URINE urine noted. Bedside drainage bag placed below level of bladder. Urine sample collected and sent to lab. Pt tolerated procedure WELL .
--- NOTE | 2017-12-16 22:35 | NUR ---
PT ARRIVED WITH JOHNSON IN PLACE AND DRAINING YELLOW URINE. REPLACED JOHNSON CATHETER UPON ARRIVAL TO ER.
[2017-12-16 22:41] LABS: APPEARANCE,URINE CLOUDY (CLEAR); BILIRUBIN,URINE NEGATIVE (NEGATIVE); BLOOD, URINE 2+ (NEGATIVE); COLOR,URINE YELLOW (YELLOW); LEUKOCYTE ESTERASE ,URINE 1+ (NEGATIVE); NITRITE, URINE NEGATIVE (NEGATIVE); UGLUCOSE NEGATIVE (NEGATIVE)
[2017-12-16 22:41] LABS: PROTHROMBIN TIME 12.1 secs (10.8-13.4)
--- NOTE | 2017-12-16 22:43 | NUR ---
RT AT BEDSIDE GIVING RESPIRATORY TREATMENT TO PT. PT TOLERATED WELL.
[2017-12-16 22:46] LABS: ANION GAP 10.4 (8-16); CARBON DIOXIDE 26.5 mmol/L (21-32); CREATININE 1.5 mg/dL (0.6-1.3); POTASSIUM 4.9 mmol/L (3.5-5.1)
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
[2017-12-16 22:52] LABS: ALBUMIN 1.9 g/dL (3.4-5.0); TOTAL BILIRUBIN 0.3 mg/dL (0.0-1.0)
[2017-12-16 22:54] LABS: EOSINOPHILS % (MANUAL) 1 % (0-4); LYMPHOCYTES % (MANUAL) 7 % (20-46); MONOCYTES % (MANUAL) 3 % (5-12)
[2017-12-16] MEDS ORDERED: PIPERACILLIN/TAZOBACTAM 3.375 GM VIAL IV ONE (23:02)
--- NOTE | 2017-12-16 23:08 | NUR ---
PATIENT TRANSFERRED TO ICU BED 1 VIA 100% AMBU BAG AND PLACE BACK ON CURRENT VENTILATOR SETTING W/O ANY RESP. DISTRESS
--- NOTE | 2017-12-16 23:10 | NUR ---
ALDEN BRICEÑO INFORMED PT HAS MAGNESIUM INFUSING AT THIS TIME. ALDEN RN WILL START ZOSYN IN ICU. BLOOD CULTURES WERE DONE UPON ARRIVAL TO ER.
--- NOTE | 2017-12-16 23:10 | NUR ---
RECEIVED BEDSIDE REPORT FROM ED RN, DONALD, FOR CONTINUITY OF CARE. PATIENT IS AAOX3-4 ABLE TO RESPOND TO COMMANDS. VSS, PERRL, AFEBRILE TEMP 98.8, TRACH TO VENT BND5=203, AC=22, RB=354, PEEP 5. LUNG SOUNDS RHONCHI ON UPPER AND LOWER BILATERAL BASES. BOWEL SOUNDS ACTIVE ON AUSCULTATION IN ALL FOUR QUADRANTS, NPO STATUS. JOHNSON IN PLACE, URINE IS YELLOW/CLOUDY. 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 REDNESS NOTED ON COCCYX, BRUISING AND SWELLING ON LEFT HAND (PREVIOUS IV PER ED RN). PT ABLE TO ASSIST WITH REPOSITIONING. DENIES PAIN/NAUSEA AT THIS TIME. HOB ELEVATED, CONTACT PRECAUTIONS MAINTAINED, SIDE RAILS UP X 4. CALL LIGHT WITHIN REACH. Addendum: 12/17/17 at 0133 by Marlen Lu RN NS INFUSING AT 100ML/HR AND MAGNESIUM AT 25ML/HR, TO 20 GAUGE PIV. LEFT GREAT TO AMPUTATION NOTED.
[2017-12-16 23:11] LABS: RBC,URINE TOO NUMEROUS TO COUN /HPF (0-5)
[2017-12-16 23:12] LABS: WBC,URINE TOO MANY TO COUNT /HPF (0-5); YEAST,URINE Many /HPF (None Seen)
[2017-12-16 23:15] VITALS: BP 119/69
--- NOTE | 2017-12-16 23:15 | NUR ---
APatient will be admitted to care of DR HARRIS. Admited to ICU. Will go to room ICU 1. Belongings list completed. Report to AMINATA RAY.
--- NOTE | 2017-12-16 23:30 | NUR ---
PT REFUSED INFLUENZA VACCINE, STATED SHE RECEIVED IT ALREADY. TO FOLLOW-UP WITH [facility] FOR DOCUMENTATION OF VACCINES RECEIVED.
--- NOTE | 2017-12-16 23:40 | NUR ---
PT FAMILY AT BEDSIDE, DAUGHTER- TINO AND SON AT BEDSIDE. STATED SHE BELIEVE PT RECEIVED A FLU VACCINE 2, MONTHS AGO. TO FOLLOW UP WITH [facility]. FAMILY ALSO STATED DR. GARCIA IS THE COLLIERY CLERK THAT SHE SEE REGULARLY AND REQUEST HE COME TO SEE HER FOR CONTINUITY OF CARE.
[2017-12-16 23:41] VITALS: BP 119/69
--- NOTE | 2017-12-16 23:43 | NUR ---
RT, GENE, AT BEDSIDE, ADJUSTED FIO2=80%.
[2017-12-17] VITALS (22 sets, daily range): BP systolic 117–145; BP diastolic 60–79
--- NOTE | 2017-12-17 00:05 | NUR ---
DR. ARAYA, PULMONARY, AT BEDSIDE TO SEE PATIENT.
[2017-12-17] MEDS: IPRATROPIUM 0.02% 0.5 MG/2.5 ML NEBU INH SCH ×4 (00:24→19:33)
[2017-12-17] MEDS: ALBUTEROL 0.083% 2.5 MG/3 ML NEBU INH SCH ×4 (00:24→19:33)
--- NOTE | 2017-12-17 00:45 | NUR ---
RT HANI AT BEDSIDE, ADJUSTED FIO2=40%.
[2017-12-17] MEDS ORDERED: VANCOMYCIN 1,000 MG in NACL 0.9% 250 ML IV SCH (01:00)
[2017-12-17] MEDS ORDERED: VANCOMYCIN 1,000 MG VIAL ONE (01:17)
[2017-12-17] MEDS ORDERED: PIPERACILLIN/TAZOBACTAM 2.25 GM VIAL IV ONE (01:17)
--- NOTE | 2017-12-17 02:55 | NUR ---
CALLED [facility] FOR FOLLOW-UP ABOUT DIET AND VACCINES, SPOKE WITH RN JAZZ, SHE STATED PT GETS PUREE DIET. DUE TO PT RECENT ADMISSION TO ICU/HOSPITAL SHE IS NOT ABLE TO ACCESS THE PT RECORDS TO SEE WHICH VACCINES SHE HAS RECEIVED AND WHEN. IN ORDER TO RECEIVE THAT INFORMATION WE MUST CALL MEDICAL RECORDS DURING BUSINESS HOURS, EARLIEST 8AM TO SEE IF PT RECEIVED PNEUMONIA AND INFLUENZA VACCINES. PT INITIALLY REFUSED FLU VACCINE AND BELIEVES SHE RECEIVED ONE ALREADY. - ACCORDING TO DAUGHTER SHE RECEIVED BOTH VACCINES ON WITHIN THE LAST TWO MONTHS. I WAS ALSO INFORMED THAT PT PRIMARY SALES REPRESENTATIVE GRAPHIC ART IS DR. GARCIA.
--- NOTE | 2017-12-17 04:55 | NUR ---
PM CARES PROVIDED, NO BOWEL MOVEMENT, VAP ORAL CARE/CATH CARE PROVIDED. ZOSYN INFUSING AT 100ML/HR TO RIGHT AC 20 GAUGE. PT ABLE TO ASSIST IN REPOSITIONING SELF, PILLOW SUPPORT PROVIDED. HOB ELEVATED TO 30 DEG.
[2017-12-17] MEDS ORDERED: PIPERACILLIN/TAZOBACTAM 2.25 GM in DEXTROSE 5% 50 ML IV SCH (05:00)
[2017-12-17 06:02] LABS: HEMATOCRIT 29.5 % (36-48); HEMOGLOBIN 9.2 g/dL (12.0-16.0); MEAN CORPUSCULAR HEMOGLOBIN 28 pg (27-31); MEAN CORPUSCULAR HGB CONC 31 g/dL (33-37); PLATELET COUNT (AUTO) 555 K/uL (140-450); RED BLOOD CELL COUNT(AUTO) 3.24 MIL/uL (4.20-5.40); RED CELL DISTRIBUTION WIDTH 17.8 % (11.6-13.7); WHITE BLOOD COUNT (AUTO) 29.3 K/uL (4.8-10.8)
[2017-12-17 06:27] LABS: ALBUMIN 1.8 g/dL (3.4-5.0); ANION GAP 12.9 (8-16); CARBON DIOXIDE 23.8 mmol/L (21-32); CREATININE 1.5 mg/dL (0.6-1.3); POTASSIUM 4.7 mmol/L (3.5-5.1); TOTAL BILIRUBIN 0.5 mg/dL (0.0-1.0)
[2017-12-17 06:56] LABS: LYMPHOCYTES % (MANUAL) 4 % (20-46); MONOCYTES % (MANUAL) 1 % (5-12)
[2017-12-17] MEDS ORDERED: PROPOFOL 1000 MG/100 ML PREMIX 100 ML IV ONE (07:21)
--- NOTE | 2017-12-17 07:30 | NUR ---
RECEIVED REPORT FROM CHAIN SALES CONSULTANT NURSECORY. A&Ox4. ABLE TO FOLLOW COMMANDS, RESPONDS APPROPRIATELY. TRACH TO VENT VENT SETTING: AC FIO2-35% TV 450 PEEP 8 RATE 22. LUNGS SOUNDS RHONCHI BILATERALLY. BOWELS SOUNDS ACTIVE. JOHNSON CATH IN PLACE. RAC 20 GAUGE IV INTACT PATENT. SCDS RUNNING. VSS. NSR ON MONITOR. WILL CONTINUE TO MONITOR CLOSELY.
--- NOTE | 2017-12-17 08:10 | NUR ---
DR SMITH AT BEDSIDE PER MD RATE CHANGED TO 18
--- NOTE | 2017-12-17 08:22 | NUR ---
RECEIVED ON A Tumbie CARESCAPE VENTILATOR PLUGGED INTO RED OUTLET TOLERATING WELL WITHOUT ADVERSE REACTIONS NOTED TO A PORTEX DCT #7 AIRWAY SECURED WITH A TRACH TIE CUFF PRESSURE CHECKED NOTED AMBU BAG NOTED AT HOB LOC ASLEEP EASILY AWAKENS BREATH SOUNDS COARSE RHONCHI BILATERAL WITH GOOD CHEST RISE DEEP TRACHEAL SUCTION FOR COPIOUS THICK BROWN SECRETIONS AIRWAY PATENT
--- NOTE | 2017-12-17 08:51 | NUR ---
PATIENT HAS BEEN SCREENED AND CATEGORIZED HIGH NUTRITION RISK. PATIENT WILL BE SEEN WITHIN 1-2 DAYS OF ADMISSION. 12/17/17 12/18/[address]
[2017-12-17] MEDS ORDERED: MEROPENEM 1,000 MG in NACL 0.9% 100 ML IV SCH (09:05)
[2017-12-17] MEDS: NACL 0.9% 1,000 ML IV SCH ×2 (10:57→21:33)
--- NOTE | 2017-12-17 12:08 | NUR ---
NO APPARENT PULMONARY DISTRESS NOTED BREATH SOUNDS DIFFUSE RALES BILATERAL WITH GOOD CHEST RISE NO TRACHEAL SUCTIONING AT THIS TIME CASKET UPHOLSTERER TO MONITOR DAUGHTER AT BEDSIDE
[2017-12-17] MEDS ORDERED: PIPER/TAZO 2.25GM/D5W PREMIX 50 ML IV SCH (13:00)
--- NOTE | 2017-12-17 13:00 | NUR ---
spoke with Dr. Arshad regarding patients diet orders. Explained that patient and family would like her to eat on her own like she previously was. Dr. Arshad stated that was fine as long as we had a swallow evaluation done first.will follow up.
--- NOTE | 2017-12-17 13:34 | NUR ---
Table Games Manager Note: I reviewed POLST, the back of POLST is not filled out, I informed Mehran from [facility] of this. Per Mehran, patient is on a 7 day bed hold and patient's daughter Dianne Gong is patient's healthcare decision maker. Mehran stated patient does not have an existing Advance Directive. I called and spoke with Dianne Gong, per Dianne, she would like patient to return to [facility] upon discharge.
--- NOTE | 2017-12-17 13:39 | NUR ---
12/17/17 RD INITIAL ASSESSMENT COMPLETED PLEASE REFER TO NUTRITION ASSESSMENT UNDER CARE ACTIVITY FOR ESTIMATED NUTRITIONAL NEEDS. 1. WHEN PT IS MEDICALLY STABLE CONSIDER ADVANCING TO A [facility] DIET TOLERATED WITH FOOD TEXTURE RECOMMENDED FROM A SWALLOW EVALUATION. 2. RD TO FOLLOW-UP 2-3 DAYS, HIGH RISK SIMBA MORENO, RD
--- NOTE | 2017-12-17 14:01 | NUR ---
NO APPARENT SOB NOTED GOOD CHEST RISE BREATH SOUNDS COARSE RHONCHI BILATERAL WITH GOOD CHEST RISE DEEP TRACHEAL SUCTION FOR MODERATE SCATTERED THICK BROWN SECRETIONS AIRWAY PATENT
--- NOTE | 2017-12-17 14:11 | NUR ---
ADMISSION CHART REVIEW DONE FAXED INITIAL REVIEW TO [facility] [phone] PHONE DELORIS [phone]
--- NOTE | 2017-12-17 16:10 | NUR ---
PATIENTS DAUGHTER AT BEDSIDE.
[2017-12-17] MEDS ORDERED: INSULIN LISPRO SLIDING SCALE 100 UNITS/ML VIAL SUBQ PRN (16:55)
--- NOTE | 2017-12-17 16:55 | NUR ---
SPOKE WITH DR HARRIS REGARDING BS CHECKS AND INSULIN COVERAGE REQUIRE BASED ON HX OF DM. GAVE ORDERS. WILL FOLLOW ORDERS RECEIVED.
--- NOTE | 2017-12-17 17:45 | NUR ---
AWAKE AND ALERT NO EVIDENCE OF PULMONARY DISTRESS NOTED AT THIS TIME GOOD CHEST RISE AND AERATION THROUGHOUT LUNG FORREST AIRWAY PATENT CISCO/RN AWARE OF FIO2 TITRATION TO 30%
[2017-12-17] MEDS ORDERED: VANCOMYCIN 750 MG in DEXTROSE 5% 250 ML IV SCH (19:00)
--- NOTE | 2017-12-17 19:14 | NUR ---
GAVE REPORT TO BUNDLE SHAKER NURSE. VSS. PATIENT AWAKE AND ALERT.
--- NOTE | 2017-12-17 19:14 | NUR ---
RECEIVED REPORT FROM DAY SHIFT RN FOR CONTINUITY OF CARE. PT IS ON TRACH TO VENT WITH FOLLOWING SETTINGS: VT 480, PEEP 8, RATE 18, AND FIO2 30%. PT IS ABLE TO MAKE NEEDS KNOWN, ABLE TO FOLLOW COMMANDS. PT SKIN IS INTACT. PT HAS A 20G IV TO RIGHT AC, ASYMPTOMATIC. VITAL SIGNS WITHIN NORMAL LIMITS. PT STABLE, NO SIGNS OF DISTRESS NOTED AT THIS TIME. Addendum: 12/17/17 at 2 by Magy Egan RN LEFT BIG TOE AMPUTATED, BUT SKIN IS INTACT.
[2017-12-17] MEDS: BLOOD GLUCOSE MONITORING 1 DEV DEV FS SCH (20:48)
--- NOTE | 2017-12-17 20:55 | NUR ---
ADMINISTERED SCHEDULED HEPARIN, PT TOLERATED WELL. NO INSULIN COVERAGE NEEDED FOR BLOOD SUGAR LEVEL 146. VANCO STILL INFUSING AT THIS TIME, PT TOLERATED WELL.
[2017-12-17] MEDS: MEROPENEM 1,000 MG in NACL 0.9% 100 ML IV SCH (21:32)
--- NOTE | 2017-12-17 21:33 | NUR ---
MERREM NOW INFUSING. PT TOLERATING WELL.
--- NOTE | 2017-12-17 22:32 | NUR ---
VITAL SIGNS WITHIN NORMAL LIMITS. PT STABLE, WATCHING TELEVISION. NO SIGNS OF DISTRESS NOTED AT THIS TIME.
--- NOTE | 2017-12-17 23:21 | NUR ---
RT AT BEDSIDE.
[2017-12-18] VITALS (23 sets, daily range): BP systolic 107–150; BP diastolic 35–83
--- NOTE | 2017-12-18 00:30 | NUR ---
PT USED CALL LIGHT TO GET ASSISTANCE AND ASKED TO LOWER HEAD OF BED. PT STILL WATCHING TELEVISION. VITAL SIGNS WITHIN NORMAL LIMITS. PT STABLE, NO SIGNS OF DISTRESS NOTED AT THIS TIME.
[2017-12-18] MEDS: ALBUTEROL 0.083% 2.5 MG/3 ML NEBU INH SCH ×4 (00:41→18:54)
[2017-12-18] MEDS: IPRATROPIUM 0.02% 0.5 MG/2.5 ML NEBU INH SCH ×4 (00:41→18:54)
--- NOTE | 2017-12-18 01:46 | NUR ---
PT SLEEPING BUT IS EASILY AWAKENED. NO SIGNS OF DISTRESS NOTED AT THIS TIME.
--- NOTE | 2017-12-18 03:20 | NUR ---
BLOOD SUGAR IS 113, WILL CONTINUE TO MONITOR.
--- NOTE | 2017-12-18 05:33 | NUR ---
PT BLOOD SUGAR IS NOW 89, WILL CALL DR HARRIS TO ASK IF WE CAN GIVE HER DIFFERENT IVF, AND ALSO PT IS REQUESTING MEDICATION TO HELP WITH GAS.
--- NOTE | 2017-12-18 05:45 | NUR ---
PAGED DR ANGUIANO.
[2017-12-18 06:01] LABS: BASOPHILS % (AUTO) 0.1 % (0.0-2.0); EOSINOPHILS # (AUTO) 0.1 K/uL (0-0.4); EOSINOPHILS % (AUTO) 0.9 % (0.0-4.0); HEMATOCRIT 27.9 % (36-48); HEMOGLOBIN 8.8 g/dL (12.0-16.0); LYMPHOCYTES % (AUTO) 14.5 % (20.5-51.1); MEAN CORPUSCULAR HEMOGLOBIN 29 pg (27-31); MEAN CORPUSCULAR HGB CONC 31 g/dL (33-37); MEAN CORPUSCULAR VOLUME 90.7 fL (80-94); MONOCYTES % (AUTO) 7.1 % (1.7-9.3); NEUTROPHILS # (AUTO) 10.9 K/uL (1.8-7.7); NEUTROPHILS % (AUTO) 77.4 % (42.2-75.2); PLATELET COUNT (AUTO) 562 K/uL (140-450); RED BLOOD CELL COUNT(AUTO) 3.08 MIL/uL (4.20-5.40); RED CELL DISTRIBUTION WIDTH 18.4 % (11.6-13.7)
[2017-12-18 06:35] LABS: ALBUMIN 1.7 g/dL (3.4-5.0); CARBON DIOXIDE 26.9 mmol/L (21-32); CREATININE 1.2 mg/dL (0.6-1.3); POTASSIUM 3.9 mmol/L (3.5-5.1); TOTAL BILIRUBIN 0.4 mg/dL (0.0-1.0)
--- NOTE | 2017-12-18 06:36 | NUR ---
PT REFUSES TO KEEP SCD's ON.
[2017-12-18] MEDS ORDERED: DEXT 5% / NACL 0.45% 1,000 ML IV SCH (06:45)
--- NOTE | 2017-12-18 06:45 | NUR ---
DR ANGUIANO CALLED AND ACQUISITIONS LIBRARIAN SPOKE TO HIM. HE ORDERED D5 0.45%NS@75ML/HR.
[2017-12-18] MEDS: BLOOD GLUCOSE MONITORING 1 DEV DEV FS SCH ×4 (06:53→21:12)
--- NOTE | 2017-12-18 07:12 | NUR ---
RECEIVED PT ON MECHANICAL VENTILATION WITH PORTEX 7 TRACH. TRACH IS IN PLACE AND SECURED. VENT SETTINGS CHARTED. VENT IS CONNECTED TO RED OUTLET. ALARMS AUDIBLE. AMBU BAG AT BED SIDE. HHN TX GIVEN INLINE WITH NO ADVERSE REACTION. PT IS AWAKE AND ALERT. SXN'D SCANT AMT OF THIN CLEAR SECRETIONS. NO SOB OR DISTRESS NOTED. WILL CONTINUE TO MONITOR.
--- NOTE | 2017-12-18 07:22 | NUR ---
ENDORSED PT TO DAY SHIFT AMINATA ALVARADO, PT IN STABLE CONDITION.
--- NOTE | 2017-12-18 07:25 | NUR ---
RECEIVED REPORT FROM ACQUISITION MARKETING MANAGER NURSE AT BEDSIDE, PT IS AAOx4, NONVERBAL, ABLE TO MAKE MOUTH WORD, ABLE TO FOLLOW COMMANDS AND MAKE NEEDS KNOWN. VSS, DENIES PAIN, TRACH TO VENT WITH SETTING: AC FIO2 30% TV 450 PEEP 5 RATE 18, NO S/S OF DISTRESS, RHONCHI LUNGS SOUNDS BILATERALLY, SUCTION PROVIDED, PINK YELLOW MUCUS NOTED, SOFT ABDOMEN WITH ACTIVE BOWELS SOUNDS, REFUSED TUBE FEEDING PER REPORT, NPO AT THIS TIME, WAITING FOR [facility]. JOHNSON CATH IN PLACE DRAINING CLOUDY YELLOW URINE VIA GRAVITY, SKIN IS WARM AND DRY IN TOUCH, INTACT, LEFT GREAT TOE AMPUTATED NOTED. IV SITE TO RIGHT AC 20G AND RIGHT FOREARM 20GA, PATENT, RUNNING WITH D51/2NS AT 75ML/HR, SLIGHT WEAKNESS NOTED, ABLE TO MOVE ALL EXTREMITIES, SCDS IN PLACE. ORAL CARE PROVIDED, PLACED PT TO COMFORT POSITION, HOB ELEVATED 30 DEGREES, SAFETY MEASURES IN PLACE, CALL LIGHT WITHIN REACH, WILL CONTINUE TO MONITOR.
--- NOTE | 2017-12-18 08:30 | NUR ---
VENT KEPT ALARMING CIRCUIT LEAK. CHANGED CIRCUIT. NO MORE ALARM LEAK. NO SOB OR DISTRESS NOTED. WILL CONTINUE TO MONITOR.
--- NOTE | 2017-12-18 08:30 | NUR ---
DR. GLEASON CAME IN TO SEE PT AT BEDSIDE, WILL FOLLOW UP WITH NEW ORDERS.
[2017-12-18] MEDS: DOCUSATE 100 MG/10 ML UDC GT SCH ×2 (08:49→21:12)
[2017-12-18] MEDS: MEROPENEM 1,000 MG in NACL 0.9% 100 ML IV SCH ×2 (08:49→21:13)
--- NOTE | 2017-12-18 09:00 | NUR ---
SCHEDULED MEDICATION GIVEN, PT TOLERATED WELL.
--- NOTE | 2017-12-18 09:10 | NUR ---
DECREASED FIO2 TO 24 %. NO SOB OR DISTRESS NOTED. VENT CHECK DONE. MD GLEASON IN ROOM. WILL CONTINUE TO MONITOR.
--- NOTE | 2017-12-18 09:25 | NUR ---
DR. HARRIS CAME IN TO SEE PT AT BEDSIDE, NO NEW ORDER AT THIS TIME.
--- NOTE | 2017-12-18 10:00 | NUR ---
PT DAUGHTER AT BEDSIDE, NO S/S OF DISTRESS, VSS, DENIES PAIN, POSITION CHANGED FOR OFF LOAD PRESSURE.
[2017-12-18] MEDS: ACETYLCYSTEINE 10% (100 MG/ML) 100 MG/ML VIAL INH SCH ×2 (12:00→18:53)
--- NOTE | 2017-12-18 12:00 | NUR ---
NO CHANGE OF CONDITION AT THIS TIME, ORAL CARE PROVIDED, POSITION CHANGED FOR OFF LOAD PRESSURE, VSS, DENIES PAIN.
--- NOTE | 2017-12-18 12:15 | NUR ---
HHN TX GIVEN WITH NO ADVERSE REACTION. MUCOMYST NOT FOUND NOT ADMINISTERED. DAUGHTER AT BEDSIDE. NO SOB OR DISTRESS NOTED. WILL CONTINUE TO MONITOR.
--- NOTE | 2017-12-18 14:00 | NUR ---
PT IS RESTING IN BED, NO S/S OF DISTRESS, VSS, POSITION CHANGED FOR OFF LOAD PRESSURE.
[2017-12-18] MEDS: VANCOMYCIN 750 MG in DEXTROSE 5% 250 ML IV SCH (14:18)
--- NOTE | 2017-12-18 16:00 | NUR ---
PT STATED THE ROOM IS HOT, PT'S TEMP 98.1F, REDUCED ROOM TEMP PER PT'S REQUESTED, PM CARE PROVIDED, ORAL CARE AND SUCTION PROVIDED, POSITION CHANGED FOR OFF LOAD PRESSURE.
--- NOTE | 2017-12-18 17:45 | NUR ---
ST EVAL DONE AT BEDSIDE, PT TOLERATED WELL.
--- NOTE | 2017-12-18 18:01 | NUR ---
* ST NOTE * Pt seen at bedside w/nsg present. Pt alert, cooperative and engaged throughout session, reporting no c/o pain at this time. Bedside dysphagia and oral mechanism exams completed. See evaluation report for further details. Pt tolerating 6/6 alternating PO trials of regular solid saltine crackers as well as 6/6 alternating PO trials of thin liquid apple juice via a straw, all w/o s/s of aspiration. Nsg suctioning pt after PO intake, observing no remnants of solids/liquids in secretions at this time. Pt and caregivers/nsg education completed regarding aspiration precautions, deflating trach cuff prior to pt's PO intake, and safe swallow compensatory strategies pt and caregivers/nsg or daughters could utilize to aid pt w/swallow function, w/pt and caregivers/nsg verbalizing understanding and agreement w/clinician's recommendations. It is thus recommended pt's PO diet consistency be modified to mechanical soft-GROUND textures w/thin liquids for all meals, w/pt and caregivers/nsg agreeable. No further ST follow up recommended at this time. Pt and caregivers/nsg education completed regarding results of evaluation; benefits of abiding by aspiration precautions and recommended PO diet consistency; and prognosis for improvement; with pt and caregivers/nsg verbalizing undersatnding and agreement w/clinician's recommendations. Recommend: - PO DIET CONSISTENCY OF MECHANICAL SOFT-GROUND TEXTURES W/THIN LIQUIDS for all meals - DEFLATE TRACH CUFF COMPLETELY PRIOR TO PO INTAKE OF SOLIDS/LIQUIDS/MEDICATION - Maintain STRICT ASPIRATION PRECAUTIONS DURING PT'S PO INTAKE OF SOLIDS/LIQUIDS/MEDICATION - PRIOR TO PO INTAKE, ASSURE PT IS SEATED UPRIGHT WITH HOB ELEVATED AT 80-90 DEGREE ANGLE - ASSURE PT EATS SLOWLY, ALTERNATING BTWN SOLIDS & LIQUIDS, AND UTILIZES SMALL BITES/SIPS - Suction and complete oral care after every meal No further ST follow up recommended at this time. G8996 CJ G8997 CI G8998 CI NOMS Level 2 Time In/Out 17:30 - 18:00
--- NOTE | 2017-12-18 19:06 | NUR ---
Received pt stable on vent support at documented settings, family at bedside at this time, suctioned small amounts of thick brown secretions, hhn tx given, tolerated well, no resp distress or SOB noted at this time, Portex 7 trach secured/patent/midline, alarms set and audible, ambu bag at bedside, vent plugged into red outlet, pulse ox on, will cont to monitor.
--- NOTE | 2017-12-18 19:11 | NUR ---
REPORT GIVEN TO FIELD INVESTIGATOR NURSE AT BEDSIDE FOR CONTINUE OF CARE, PT IS IN STABLE CONDITION AT THIS TIME, HAVING DINNER, ASSIST WITH DAUGHTER.
--- NOTE | 2017-12-18 19:12 | NUR ---
RECEIVED REPORT FROM DAY SHIFT RN FOR CONTINUITY OF CARE. PT IS ON TRACH TO VENT WITH FOLLOWING SETTINGS: VT 450, PEEP 5, RATE 18, AND FIO2 24%. PT IS ABLE TO MAKE NEEDS KNOWN, ABLE TO FOLLOW COMMANDS. PT LEFT BIG TOE IS AMPUTATED AND THERE IS BLANCHABLE SACRAL ERYTHEMA, BUT SKIN IS INTACT. PT HAS A 20G IV TO RIGHT AC, ASYMPTOMATIC. SBP SLIGHTLY ELEVATED AT 149, OTHERWISE VITAL SIGNS WITHIN NORMAL LIMITS. PT STABLE, NO SIGNS OF DISTRESS NOTED AT THIS TIME.
--- NOTE | 2017-12-18 21:15 | NUR ---
ADMINISTERED SCHEDULED MEDICATIONS, PT TOLERATED WELL.
[2017-12-18] MEDS: ALBUMIN HUMAN 25% 100 ML IV SCH (21:30)
--- NOTE | 2017-12-18 23:06 | NUR ---
SUCTIONED PT REQUESTED BY PT. MINIMAL SECRETIONS SUCTIONED, PT TOLERATED WELL.
[2017-12-19] VITALS (20 sets, daily range): BP systolic 135–155; BP diastolic 70–84
--- NOTE | 2017-12-19 00:37 | NUR ---
PT HAD A MODERATE SIZED BOWEL MOVEMENT, HARD, DRY AND ROUND STOOL NOTED. VITAL SIGNS WITHIN NORMAL LIMITS. PT STABLE, NO SIGNS OF DISTRESS NOTED AT THIS TIME.
[2017-12-19] MEDS: ALBUTEROL 0.083% 2.5 MG/3 ML NEBU INH SCH ×3 (00:55→13:35)
[2017-12-19] MEDS: IPRATROPIUM 0.02% 0.5 MG/2.5 ML NEBU INH SCH ×3 (00:55→13:35)
[2017-12-19] MEDS: ACETYLCYSTEINE 10% (100 MG/ML) 100 MG/ML VIAL INH SCH ×3 (00:56→12:00)
[2017-12-19] MEDS: VANCOMYCIN 750 MG in DEXTROSE 5% 250 ML IV SCH ×2 (01:48→14:13)
--- NOTE | 2017-12-19 01:48 | NUR ---
VANCO IV ABX STARTED.
--- NOTE | 2017-12-19 03:13 | NUR ---
PT NOW SLEEPING BUT EASILY AWAKENED.
--- NOTE | 2017-12-19 04:30 | NUR ---
VITAL SIGNS WITHIN NORMAL LIMITS. PT STABLE, NO SIGNS OF DISTRESS NOTED AT THIS TIME.
--- NOTE | 2017-12-19 06:05 | NUR ---
PT ASSISTED IN REPOSITIONING HERSELF, BUT REFUSED TO CHANGE GOWN, SHEETS AND PILLOW CASES.
[2017-12-19] MEDS: BLOOD GLUCOSE MONITORING 1 DEV DEV FS SCH ×3 (06:35→17:04)
--- NOTE | 2017-12-19 07:19 | NUR ---
ENDORSED PT TO DAY SHIFT RN JENNY. PT IN STABLE CONDITION.
--- NOTE | 2017-12-19 07:20 | NUR ---
RECEIVED REPORT FROM PRECISION AIRCRAFT SYSTEMS ASSEMBLER NURSE AT BEDSIDE, PT IS AAOx4, NONVERBAL, ABLE TO MAKE MOUTH WORD, ABLE TO FOLLOW COMMANDS AND MAKE NEEDS KNOWN. VSS, DENIES PAIN, TRACH TO VENT WITH SETTING: AC FIO2 30% TV 450 PEEP 5 RATE 18, NO S/S OF DISTRESS, RHONCHI LUNGS SOUNDS BILATERALLY, SOFT ABDOMEN WITH ACTIVE BOWELS SOUNDS, ON SOFT DIET AT THIS TIME, JOHNSON CATH IN PLACE DRAINING CLEAR YELLOW URINE VIA GRAVITY, SKIN IS WARM AND DRY IN TOUCH, INTACT, HX OF LEFT GREAT TOE AMPUTATED NOTED. IV SITE TO RIGHT AC 20G AND RIGHT FOREARM 20GA, PATENT AND SL. SLIGHT WEAKNESS NOTED, ABLE TO MOVE ALL EXTREMITIES, SCDS IN PLACE. ORAL CARE PROVIDED, PLACED PT TO COMFORT POSITION, HOB ELEVATED 30 DEGREES, SAFETY MEASURES IN PLACE, CALL LIGHT WITHIN REACH, WILL CONTINUE TO MONITOR.
[2017-12-19 07:21] LABS: ANION GAP 9.7 (8-16); CREATININE 1.1 mg/dL (0.6-1.3); POTASSIUM 3.7 mmol/L (3.5-5.1)
[2017-12-19] MEDS: MEROPENEM 1,000 MG in NACL 0.9% 100 ML IV SCH (08:31)
[2017-12-19] MEDS: DOCUSATE 100 MG/10 ML UDC GT SCH (08:31)
[2017-12-19] MEDS: ALBUMIN HUMAN 25% 100 ML IV SCH (08:32)
--- NOTE | 2017-12-19 09:00 | NUR ---
SCHEDULED MEDICATION GIVEN, PT TOLERATED WELL.
--- NOTE | 2017-12-19 09:30 | NUR ---
DR. GLEASON CAME IN TO SEE PT AT BEDSIDE, WILL FOLLOW UP WITH NEW ORDERS.
--- NOTE | 2017-12-19 09:40 | NUR ---
DR. HARRIS CAME IN TO SEE PT AT BEDSIDE, WILL FOLLOW UP WITH NEW ORDERS.
[2017-12-19] MEDS ORDERED: VANC750S IV (10:33)
--- NOTE | 2017-12-19 10:36 | NUR ---
NO SOB NOTED AT THIS TIME GOOD CHEST RISE DEEP TRACHEAL SUCTION FOR SMALL THIN YELLOW SECRETIONS AIRWAY PATENT
[2017-12-19 11:21] LABS: BASOPHILS % (AUTO) 0.3 % (0.0-2.0); EOSINOPHILS # (AUTO) 0.2 K/uL (0-0.4); EOSINOPHILS % (AUTO) 1.5 % (0.0-4.0); HEMATOCRIT 30.6 % (36-48); HEMOGLOBIN 9.7 g/dL (12.0-16.0); LYMPHOCYTES # (AUTO) 1.8 K/uL (2.5-16.5); LYMPHOCYTES % (AUTO) 17.3 % (20.5-51.1); MEAN CORPUSCULAR HEMOGLOBIN 29 pg (27-31); MEAN CORPUSCULAR HGB CONC 32 g/dL (33-37); MEAN CORPUSCULAR VOLUME 91.2 fL (80-94); NEUTROPHILS # (AUTO) 7.3 K/uL (1.8-7.7); NEUTROPHILS % (AUTO) 70.9 % (42.2-75.2); PLATELET COUNT (AUTO) 554 K/uL (140-450); RED BLOOD CELL COUNT(AUTO) 3.35 MIL/uL (4.20-5.40); RED CELL DISTRIBUTION WIDTH 18.5 % (11.6-13.7); WHITE BLOOD COUNT (AUTO) 10.4 K/uL (4.8-10.8)
--- NOTE | 2017-12-19 11:45 | NUR ---
STABLE "WATCHING TELEVISION" NO PULMONARY DISTRESS NOTED BREATH SOUNDS RALES BILATERAL GOOD CH CHEST RISE DEEP TRACHEAL SUCTION FOR SCANT SCATTERED BRON SECRETIONS AIRWAY PATENT DAUGHTER IN ROOM
--- NOTE | 2017-12-19 12:10 | NUR ---
PAGED DR. GLEASON REGARDING PT'S WBC COUNT WNL, DR. GLEASON AGREED TO D/C PT BACK TO [facility].
--- NOTE | 2017-12-19 12:13 | NUR ---
DICTAPHONE TYPIST JOHN NOTIFIED PT IS GOING TO BE D/C BACK TO [facility]. SHE WILL MAKE ARRANGEMENT
--- NOTE | 2017-12-19 12:15 | NUR ---
TRACHEAL TUBE CUFF DEFLATED BALLOON FLAT FOR LUNCH TRAY JENNY/RN NOTIFIED
--- NOTE | 2017-12-19 14:30 | NUR ---
REPORT GIVEN TO AMINATA HALE FROM [facility], PT WILL BE REGISTER OF WILLS AROUND 1800 TO GO BACK TO ROOM 4A.
--- NOTE | 2017-12-19 14:59 | NUR ---
RECEIVED ORDER FOR PATIENT TO GO BACK TO [facility]. I CALLED SAMANTHA AT [facility]. AUTH FOR [facility] IS [id number]. I INFORMED DEBORAH COATES IN ICU.
--- NOTE | 2017-12-19 15:40 | NUR ---
PATIENT PRESENTING WITH DIFFICULTY BREATHING SATURATION DESCENDING TO 90% BREATH SOUNDS WITH RALES RLL HHN PRN THERAPY GIVEN THIS TIME
--- NOTE | 2017-12-19 15:41 | NUR ---
ORDER FOR PATIENT TO GO BACK TO [facility]. FAXED ORDER, CONSULT AND PROGRESS NOTE. TO [facility] [phone]
--- NOTE | 2017-12-19 17:40 | NUR ---
NO DISTRESS NOTED GOOD CHEST RISE AIRWAY PATENT
--- NOTE | 2017-12-19 17:42 | NUR ---
DEFLATED TRACHEAL TUBE CUFF FOR DINNER TRAY DAUGHTER AT BEDSIDE
--- NOTE | 2017-12-19 18:48 | NUR ---
AMS CAME IN TO MAINTENANCE CONSTRUCTION HELPER PT, PT'S DAUGHTER AT BEDSIDE, DISCHARGE INSTRUCTION GIVEN, ALL BELONGS COUNT AND SIGNED, DISCHARGE PACKAGE AND CD GIVEN TO AMS, PT IS STABLE AT THIS TIME, DISCHARGED WITHOUT INCIDENT AT THIS TIME.
[2017-12-20] MEDS ORDERED: PANTOPRAZOLE 40 MG TABEC PO SCH (09:00)
== END 2017-12-19 18:50 | DRG 720 ==
LOC: MED 21:27 → MIC 22:28
PROVIDERS: ADMIT Hospitalist; ATTEND Hospitalist
PROC: 5A1945Z Respiratory Ventilation, 24-96 Consecutive Hours (ICD-10-PCS; principal; 2017-12-16)
DX: A41.9 Sepsis, unspecified organism (principal); J96.21 Acute and chronic respiratory failure with hypoxia; I50.43 Acute on chronic combined systolic (congestive) and diastolic (congestive) heart failure; G93.1 Anoxic brain damage, not elsewhere classified; Z99.11 Dependence on respirator [ventilator] status; E44.0 Moderate protein-calorie malnutrition; Z93.0 Tracheostomy status; J18.9 Pneumonia, unspecified organism; E11.22 Type 2 diabetes mellitus with diabetic chronic kidney disease; E11.51 Type 2 diabetes mellitus with diabetic peripheral angiopathy without gangrene; J96.22 Acute and chronic respiratory failure with hypercapnia; Y95 Nosocomial condition; D63.8 Anemia in other chronic diseases classified elsewhere; N18.9 Chronic kidney disease, unspecified; N39.0 Urinary tract infection, site not specified; I13.0 Hypertensive heart and chronic kidney disease with heart failure and stage 1 through stage 4 chronic kidney disease, or unspecified chronic kidney disease; J98.11 Atelectasis; R13.10 Dysphagia, unspecified; T38.0X5A Adverse effect of glucocorticoids and synthetic analogues, initial encounter; Z86.74 Personal history of sudden cardiac arrest; Z89.411 Acquired absence of right great toe; Z68.28 Body mass index [BMI] 28.0-28.9, adult; Z79.899 Other long term (current) drug therapy; Z79.84 Long term (current) use of oral hypoglycemic drugs; Z89.422 Acquired absence of other left toe(s); Y92.89 Other specified places as the place of occurrence of the external cause
CPT/HCPCS: 36415; 36600; 51702; 71045; 80048; 80053; 80202; 81001; 82803; 82948; 83605; 83880; 84484; 85025; 85610; 85730; 87040; 87070; 87081; 87086; 87205; 89220; 92610; 93005; 94002; 94003; 94640; 96365; 96375; 99291; J1644; J1815; J2185; J2543; J2704; J2930; J3370; J3475; J7030; J7060; J7613; J7620; J7644; P9046; Q0092

== ENCOUNTER 2018-01-04 01:10 | Inpatient (IN) | payer OTHER ==
[2018-01-04] VITALS (16 sets, daily range): BP systolic 115–143; BP diastolic 52–81
[~2018-01-04] VITALS: Ht 162.6 cm; Wt 66.7 kg
[~2018-01-04 01:10] MED LIST changes: +ACET-2619 PO; +BISA-213 RC; +D50SYR IV; +FLEPED RC; +GLU1I IM; -LEVO250T2 PO; -LEVO750T2 IV; +MAGN400S60 PO; +VANC750S IV; +[UNRECOGNIZED DRUG - CODE] PO
--- NOTE | 2018-01-04 01:10 | NUR ---
57/F BIBA FROM [facility] FOR SOB FEW MINS PAINTER BARREL. PT ON VENT, PER EMS PT SAT 94% ON SCENE AND COUGHED BLOOD CLOTS. PT ARRIVED WITH SCANT AMOUNT OF BLOOD TO TRACH DRESSING AND COUGHED UP BRIGHT RED BLOOD WITH CLOTS NOTED. 30RR EVEN AND SLIGHTLY LABORED, PT REPORTS SOB, COARSE LUNG SOUNDS THROUGHOUT. SKIN IS WARM AND DRY. ETT SUCTIONED WITH BRIGHT RED BLOOD SECRETIONS. DENIES CP. AOX TO NAME, GCS 15, PT ABLE TO MAKE COMPREHENSIBLE SOUNDS THROUGH TRACH. HX: COPD, CHFD, ACUTE CHRONIC HEART FAILURE, CAD, HYPOALBUMINIA, NEPHROTIC SYNDROME, DM, ANEMIA Addendum: 01/04/18 at 0418 by VentealaproprieteJoceFeniks per daughter pt had coronary stents placed in 2 days ago.
--- NOTE | 2018-01-04 01:10 | NUR ---
PT NERY ALS. TAKEN TO BED 10
--- NOTE | 2018-01-04 01:11 | NUR ---
Dr. Barajas evaluating patient at bedside.
--- NOTE | 2018-01-04 01:12 | NUR ---
Respiratory Therapist at bedside for respiratory intervention.
[2018-01-04] MEDS ORDERED: IPRATROPIUM 0.02% 0.5 MG/2.5 ML NEBU INH ONE (01:15)
[2018-01-04] MEDS ORDERED: ALBUTEROL 0.083% 2.5 MG/3 ML NEBU INH ONE (01:15)
[2018-01-04] MEDS ORDERED: LOSA25TA22 PO (01:24)
[2018-01-04] MEDS ORDERED: CLOP75TA26 PO (01:24)
[2018-01-04] MEDS ORDERED: ATOR40TA PO (01:24)
[2018-01-04] MEDS ORDERED: [UNRECOGNIZED DRUG - CODE] PO (01:24)
[2018-01-04 01:57] LABS: BASOPHILS % (AUTO) 0.4 % (0.0-2.0); EOSINOPHILS # (AUTO) 0.2 K/uL (0-0.4); EOSINOPHILS % (AUTO) 2.6 % (0.0-4.0); HEMATOCRIT 26.4 % (36-48); HEMOGLOBIN 8.5 g/dL (12.0-16.0); LYMPHOCYTES # (AUTO) 1.5 K/uL (2.5-16.5); LYMPHOCYTES % (AUTO) 16.4 % (20.5-51.1); MEAN CORPUSCULAR HEMOGLOBIN 30 pg (27-31); MEAN CORPUSCULAR HGB CONC 32 g/dL (33-37); MEAN CORPUSCULAR VOLUME 93.8 fL (80-94); MONOCYTES # (AUTO) 0.7 K/uL (0.8-1.0); MONOCYTES % (AUTO) 7.9 % (1.7-9.3); NEUTROPHILS # (AUTO) 6.6 K/uL (1.8-7.7); NEUTROPHILS % (AUTO) 72.7 % (42.2-75.2); PLATELET COUNT (AUTO) 439 K/uL (140-450); RED BLOOD CELL COUNT(AUTO) 2.81 MIL/uL (4.20-5.40); RED CELL DISTRIBUTION WIDTH 17.6 % (11.6-13.7); WHITE BLOOD COUNT (AUTO) 9.1 K/uL (4.8-10.8)
--- NOTE | 2018-01-04 02:07 | NUR ---
RECEIVED PT WITH A PORTEX 7 TRACH. PLACED PT ON VENT SETTINGS AC/VC VT 400,RR 18, 40%,+6. PT PRESENTED WITH BLOODY STOMA AND SUCTIONED LARGE AMOUNT OF BLOODY SECRETIONS. RT AMELIE OBTAINED ABG. I CHANGED THE INNER CANULA AND CLEANED THE STOMA AND GAVE PT A BREATHING TX. VENT IS PLUGGED INTO RED OUTLET. VENT ALARMS ARE ON AND FUNCTIONING. WILL CONTINUE TO MONITOR.
[2018-01-04 02:12] LABS: ANION GAP 6.7 (8-16); CARBON DIOXIDE 27.6 mmol/L (21-32); CREATININE 1.7 mg/dL (0.6-1.3); POTASSIUM 4.3 mmol/L (3.5-5.1)
[2018-01-04 02:16] LABS: PROTHROMBIN TIME 11.8 secs (10.8-13.4)
[2018-01-04 02:18] LABS: ALBUMIN 2.3 g/dL (3.4-5.0); TOTAL BILIRUBIN 0.6 mg/dL (0.0-1.0)
--- NOTE | 2018-01-04 02:30 | NUR ---
Pt asleep comfortably. respirations are even and unlabored, continues on vent to trach. No further hemoptysis episode noted
[2018-01-04] MEDS ORDERED: FURO-570 PO (02:33)
[2018-01-04] MEDS ORDERED: ALBU3SOL83 IH (02:33)
[2018-01-04] MEDS ORDERED: PIPERACILLIN/TAZOBACTAM 3.375 GM in DEXTROSE 5% 50 ML IV ONE (04:00)
[2018-01-04] MEDS ORDERED: PIPERACILLIN/TAZOBACTAM 3.375 GM VIAL IV ONE (04:16)
--- NOTE | 2018-01-04 04:30 | NUR ---
Pt asleep comfortably. respirations are even and unlabored, continues on vent to trach. No further hemoptysis episode noted
--- NOTE | 2018-01-04 04:58 | NUR ---
Patient will be admitted to care of [facility]. Admited to TELE. Will go to room ICU 8. Belongings list completed. Report to MILVIA COATES.
--- NOTE | 2018-01-04 05:00 | NUR ---
RECEIVED PT FROM ER. GALE MAYS. PT AOX3-4. FOLLOWS COMMANDS. RESPONDS TO VERBAL AND TACTILE STIMULI. 3MM PERRL. LUNG SOUNDS COARSE BILATERALLY. TRACH TO VENT. AC MODE FI02 40 VT 400 RATE 18 PEEP 6. SCANT RED TINGED SPUTUM UPON SUCTIONING. SR ON MONITOR. NO EDEMA. NO JVD NOTED. ABD SOFT, NONTENDER, BOWEL SOUNDS HYPOACTIVE. BLADDER NONDISTENDED. INCONTINENT FOR URINE. REDNESS NOTED ON SACRAL COCCYX AREA. L GREAT TOE AMPUTATION NOTED. SKIN WARM, DRY INTACT. L AC 20G IV PATENT. SALINE LOCKED. ABLE TO REPOSITION SELF. SR UP X4. BED IN LOWEST POSITION. CALL LIGHT WITHIN REACH. WILL CONTINUE TO MONITOR.
--- NOTE | 2018-01-04 05:02 | NUR ---
PT BELONGINGS NOTED BLUE BLANKET AND TABLET. PT WANTS TO KEEP ITEMS AT BEDSIDE AT THIS TIME PER DAUGHTER REQUEST.
--- NOTE | 2018-01-04 05:21 | NUR ---
TRANSFERRED PT FROM ED TO ICU BED 8. PLACED PT ON VENT SETTINGS: AC/VC 18, 400,40%, +6. PT IS USING A PORTEX 7. CLEANED PT'S TRACH SITE WHEN ADMITTED TO ED. ABG AND SPUTUM COMPLETED. VENT ALARMS ARE SET AND AUDIBLE. WILL CONTINUE TO MONITOR.
--- NOTE | 2018-01-04 05:50 | NUR ---
ACCOUNTING SYSTEMS ANALYST NOTIFIED FOR DR. LAZARO TO EVALUATE PATIENT AND ADD ADDITIONAL ORDERS
--- NOTE | 2018-01-04 06:24 | NUR ---
LAB AT BEDSIDE AT THIS TIME.
--- NOTE | 2018-01-04 06:25 | NUR ---
CALLED CALL EXCHANGE TO PAGED DR. ELIGIO MOSELEY (BOX CUTTER) REGARDING ADMISSION ORDERS, WILL WAIT FOR THE PHYSICIAN TO CALL BACK.
--- NOTE | 2018-01-04 06:55 | NUR ---
DR. MOSELEY CONTACTED FOR NEW ADMIT ORDERS: MRSA SWAB, SPUTUM CULTURE, CODE STATUS, NS 0.9% 1L 75ML/HR, PNA VACCINE, ZOSYN 3.375G 100ML/HR, SWALLOW EVAL, BLOOD GLUCOSE ACHS, HUMALOG SLIDING SCALE, ISOLATION AIRBORNE PRECAUTION TO R/O TB. WILL CONTINUE TO MONITOR.
--- NOTE | 2018-01-04 07:06 | NUR ---
PAGED AND TEXT CRISSETE FOR SWALLOW EVAL ORDER
--- NOTE | 2018-01-04 07:14 | NUR ---
REPORT ENDORSED TO INCOMING SHIFT. PT IN STABLE CONDITION. NO SIGNS OF ACUTE DISTRESS.
--- NOTE | 2018-01-04 07:14 | NUR ---
RECEIVED REPORT FROM BUSINESS EXECUTIVE RN FER. PT SLEEPING IN BED AROUSABLE. A/O X1. REORIENT TO TIME/PLACE AND PERSON. NON-VERBAL. SR ON MONITOR. SKIN DRY AND WARM TO TOUCH. TRACH TO VENT AC 18 FIO2 40% TV 400 PEEP 6. LUNGS COARSE ON AUSCULTATION. LEFT AC 20 G. INTACT. SALINE LOCK. BRUISES NOTED ON RIGHT FOREARM. ABDOMEN, PUBIC AREA, AND RIGHT GROIN. ABDOMEN SOFT, ROUND AND NON-TENDER. ACTIVE BOWEL SOUND. DENIES NAUSEA/VOMITING AT THIS TIME. DENIES ABDOMINAL DISCOMFORT AND PAIN. LEFT GREAT TOE AMPUTEE. DRY SCABS NOTED ON BLE. KEPT HOB ELEVATED. BED IN LOW POSITION LOCKED. WILL CONTINUE TO MONITOR.
[2018-01-04] MEDS ORDERED: INFLUENZA VIRUS VACCINE QUAD 0.5 ML SYR IMVAC SCH (07:15)
--- NOTE | 2018-01-04 07:18 | NUR ---
RECEIVED TRACH PT WITH A PORTEX 7 ON VENT. SETTINGS AC 18, VT 400, PEEP 6 AND FIO2 40%. PT SUCTIONED OBTAINED BLOODY SECRETIONS, AIRWAY IS PATENT AND TRACH IS SECURE. PT IS AWAKE, ALERT AND ABLE TO NOD YES OR NO TO QUESTIONING. PT IS NOT IN ANY DISTRESS AT THIS TIME. VENT IS PLUGGED INTO A RED OUTLET WITH ALARMS ON AND FUNCTIONING. AMBU BAG IS PRESENT AT BEDSIDE. WILL CONTINUE TO MONITOR.
[2018-01-04] MEDS ORDERED: HYDRAGUARD CREAM TP PRN (07:55)
[2018-01-04] MEDS ORDERED: PIPER/TAZO 3.375GM/D5W PREMIX 50 ML IV SCH ×2 (08:26→13:00)
[2018-01-04] MEDS: BLOOD GLUCOSE MONITORING 1 DEV DEV FS SCH ×4 (08:29→20:09)
[2018-01-04] MEDS: NACL 0.9% 1,000 ML IV SCH (08:30)
[2018-01-04] MEDS: PANTOPRAZOLE 40 MG INJ VIAL IVP SCH (08:38)
--- NOTE | 2018-01-04 08:48 | NUR ---
MORNING CARE PROVIDED. ADMINISTERED MEDICINES. TOLERATING WELL. NO SOB NOTED. VS WNL IN MONITOR. WILL CONTINUE TO MONITOR.
[2018-01-04] MEDS ORDERED: BISACODYL 10 MG SUPP RC SCH (09:05)
[2018-01-04] MEDS ORDERED: ACETAMINOPHEN 325 MG TAB PO SCH (09:05)
[2018-01-04] MEDS ORDERED: DEXTROMETHORPHAN PO SCH (09:05)
[2018-01-04] MEDS ORDERED: GUAIFENESIN PO SCH (09:05)
[2018-01-04] MEDS ORDERED: SODIUM PHOSPHATE PEDIATRIC 67.5 ML ENEM RC SCH (09:05)
[2018-01-04] MEDS ORDERED: VANCOMYCIN PER PHARMACY MC PRN (09:05)
[2018-01-04] MEDS ORDERED: MAGNESIUM HYDROXIDE 2400 MG/30 ML UDC PO SCH (09:05)
--- NOTE | 2018-01-04 09:16 | NUR ---
SUCTIONING DONE. BLOODY SECRETION ON SUCTION. DR. LAZARO AWARE.
--- NOTE | 2018-01-04 09:16 | NUR ---
DR. LAZARO MADE AWARE ABOUT LAB RESULTS.
[2018-01-04] MEDS ORDERED: guaiFENesin/CODEINE 100/10MG 5 ML UDC PO PRN (09:30)
[2018-01-04] MEDS ORDERED: VANCOMYCIN 1GM/DEXT 5% PREMIX 200 ML IV SCH (10:00)
--- NOTE | 2018-01-04 10:07 | NUR ---
SEEN BY DR. ANGUIANO. AVOID AGGRESSIVE SUCTIONING PER DR. ANGUIANO. DC'D AIR BORN ISOLATION. WILL CONTINUE CONTACT ISOLATION, PT HAS HX OF ESBL IN URINE AND BLOOD.
--- NOTE | 2018-01-04 11:14 | NUR ---
PT SLEEPING IN BED COMFORTABLY. NO ACUTE RESP DISTRESS NOTED. NO CHANGE IN LOC. VS WNL. WILL CONTINUE TO MONITOR.
--- NOTE | 2018-01-04 11:45 | NUR ---
FIO2 TITRATED TO 30%. PT NOT SOB AND NOT IN RESPIRATORY DISTRESS. SPO2 99% AT THIS TIME. WILL CONTINUE TO MONITOR.
[2018-01-04] MEDS: HYDRAGUARD CREAM TP SCH ×2 (12:49→13:00)
[2018-01-04] MEDS: FUROSEMIDE 40 MG/4 ML VIAL IVP SCH ×2 (12:58→20:10)
[2018-01-04] MEDS ORDERED: FUROSEMIDE 40 MG TAB PO SCH (13:00)
--- NOTE | 2018-01-04 13:10 | NUR ---
ORAL CARE PROVIDED PER VAP [facility]OTOCOL. REPOSITIONED. ADMINISTERED MEDICINE. TOLERATING WELL. WILL CONTINUE TO MONITOR.
--- NOTE | 2018-01-04 13:51 | NUR ---
VENT CHECK COMPLETED. PT NOT IN ANY DISTRESS AT THIS TIME. PT IS AWAKE AND ALERT. WILL CONTINUE TO MONITOR.
--- NOTE | 2018-01-04 14:31 | NUR ---
DAUGHTER AT BEDSIDE. UPDATED PT CONDITION. DAUGHTER WANTED TO TALK WITH AERIAL GUNNER SUPERINTENDENT REGARDING POSSIBILITY TO TRANSFER DIFFERENT LONG-TERM WHEN PT DISCHARGE RATHER THAN SENDING BACK TO [facility]. MESSAGE LEFT TO GORDO LOPEZ.
--- NOTE | 2018-01-04 15:33 | NUR ---
SLEEPING IN BED. NO CHANGE IN LOC. VS WNL. WILL CONTINUE TO MONITOR.
--- NOTE | 2018-01-04 16:00 | NUR ---
REVIEWED ALL MICROBIOLOGY REPORT URINE CULTURE DONE ON 12/16 SHOWED YEAST AND NO GROWTH IN BLOOD CULTURE AFTER 5 DAYS. PLACED PT ON STANDARD PRECAUTION.
--- NOTE | 2018-01-04 17:28 | NUR ---
PT REMAINS ON DOCUMENTED VENT SETTINGS. VENT ALARMS REMAIN ON AND FUNCTIONING. TRACH REMAINS SECURE WITH A PATENT AIRWAY. PT IS AWAKE AND NOT IN ANY DISTRESS AT THIS TIME.
--- NOTE | 2018-01-04 17:48 | NUR ---
PT CLEANED. KEPT DRY. REPOSITIONED. SUCTIONED NEEDED. NO CHANGE IN LOC. VS WNL. WILL CONTINUE TO MONITOR.
--- NOTE | 2018-01-04 19:14 | NUR ---
BEDSIDE REPORT GIVEN TO FIELDWORK COORDINATOR RN FOR CONTINUITY OF CARE. PT ON STABLE CONDITION.
--- NOTE | 2018-01-04 19:16 | NUR ---
RECEIVED REPORT FROM PM SHIFT. PT AFEBRILE. AO X 3. FOLLOWS COMMANDS. RESPONDS TO VERBAL AND TACTILE STIMULI. AFEBRILE. TRACH TO VENT. AC MODE FIO2 30 VT 400 PEEP 5. DARK RED SPUTUM UPON SUCTIONING. SR ON MONITOR. PERIPHERAL PULSES 2+ BUE BLE. ABD SOFT NONDISTENDED. BOWEL SOUNDS HYPOACTIVE. BLADDER NON DISTENDED. INCONTINENT OF URINE. LAC 20 G WITH NS @50ML/HR. IV SITE PATENT. REDNESS NOTED ON SACRUM, ECCYMOSIS IN RIN AREA. LFA BRUISING, ABD OPEN WOUND. BED IN LOWEST POSITION. CALL LIGHT WITHIN REACH. WILL CONTINUE TO MONITOR.
[2018-01-04] MEDS: ALBUTEROL SULFATE/IPRATROPIU 3 ML SOL IH SCH (19:22)
--- NOTE | 2018-01-04 19:30 | NUR ---
RT AND FAMILY AT BEDSIDE AT THIS TIME
[2018-01-04] MEDS: DOCUSATE SODIUM 100 MG GELCAP PO SCH (21:00)
[2018-01-04] MEDS: ATORVASTATIN 20 MG TAB PO SCH (21:00)
[2018-01-04] MEDS: METOPROLOL SUCCINATE 50 MG TABER PO SCH (21:00)
--- NOTE | 2018-01-04 21:02 | NUR ---
PT VOIDED AT THIS TIME. PT CLEANED AND REPOSITIONED AT THIS TIME.
--- NOTE | 2018-01-04 21:50 | NUR ---
TRANSFERED PT. VIA GURNEY. ENDORSED CARE TO [facility] NURSE FOR CONTINUITY OF CARE. PT IN STABLE CONDITION. NO SIGNS OF ACUTE DISTRESS AT THIS TIME
--- NOTE | 2018-01-04 22:00 | NUR ---
RECEIVED REPORT FROM LUMBER SALVAGER JARAD, FOR CONTINUITY OF CARE. PT IS A/OX4, ON TRACH TO VENT, BEING BAGGED AT THE MOMENT. PT IS ABLE TO MAKE NEEDS KNOWN, ABLE TO FOLLOW COMMANDS. PT BREATHS EQUAL AND UNLABORED. FOR SKIN PROBLEMS, SEE WOUND ASSESSMENT. PT IS UNABLE TO AMBULATE, BUT CAN TURN IN BED. PT HAS A 22G IV TO LEFT AC, ASYMPTOMATIC AND INTACT. DISCUSSED PLAN OF CARE WITH PT, PT VERBALIZED UNDERSTANDING. VITAL SIGNS WITHIN NORMAL LIMITS. PT STABLE, NO SIGNS OF DISTRESS NOTED AT THIS TIME. BED IN LOWEST POSITION, BED ALARM ON. CALL LIGHT WITHIN REACH, WILL CONTINUE TO MONITOR.
--- NOTE | 2018-01-04 23:36 | NUR ---
2158 TRANSFERED PT TO ROOM 108B. PT BEING BAGGED WITH AMBU BAG. NO DISTRESS NOTED
[2018-01-05] VITALS: BP 145/74
--- NOTE | 2018-01-05 | NUR ---
VITAL SIGNS WITHIN NORMAL LIMITS. PT STABLE, NO SIGNS OF DISTRESS NOTED AT THIS TIME. BED IN LOWEST POSITION, BED ALARM ON. CALL LIGHT WITHIN REACH, WILL CONTINUE TO MONITOR.
[2018-01-05] MEDS: NACL 0.9% 1,000 ML IV SCH (00:21)
[2018-01-05] MEDS: HYDRAGUARD CREAM TP SCH ×2 (00:22→13:06)
--- NOTE | 2018-01-05 02:12 | NUR ---
PT CLEANED AGAIN. APPLIED HYDRA GUARD TO REPLACE WHAT WAS CLEANED OFF.
[2018-01-05 04:00] VITALS: BP 149/74
[2018-01-05] MEDS: FUROSEMIDE 40 MG/4 ML VIAL IVP SCH ×3 (05:46→21:17)
--- NOTE | 2018-01-05 05:49 | NUR ---
ADMINISTERED SCHEDULED MEDICATION, PT TOLERATED WELL.
[2018-01-05] MEDS: BLOOD GLUCOSE MONITORING 1 DEV DEV FS SCH ×4 (06:20→21:17)
--- NOTE | 2018-01-05 07:09 | NUR ---
RECEIVED TRACH PT ON VENT WITH A PORTEX 7 TRACH. SETTINGS AC 18, VT 400, PEEP 6 AND FIO2 30%. PT SUCTIONED OBTAINED MODERATE AMOUNT OF THICK BLOODY SECRETIONS, AIRWAY IS PATENT AND TRACH IS SECURE. PT IS AWAKE AND ABLE TO NOD YES OR NO TO QUESTIONING. PT IS NOT IN ANY DISTRESS AT THIS TIME. VENT IS PLUGGED INTO A RED OUTLET WITH ALARMS ON AND FUNCTIONING. WILL CONTINUE TO MONITOR.
--- NOTE | 2018-01-05 07:19 | NUR ---
RECEIVED REPORT FROM ENGLISH AND READING INSTRUCTOR RN. PT RESTING IN BED AWAKE. A/O X4. NON-VERBAL. SKIN DRY AND WARM TO TOUCH. TRACH TO VENT AC 18 FIO2 30% TV 400 PEEP 6. LUNGS COARSE ON AUSCULTATION. LEFT AC 20 G. INTACT. SALINE LOCK. NS RUNNING AT 50 ML/HR. BRUISES NOTED ON RIGHT FOREARM, PUBIC AREA. OPEN WOUND ON ABDOMINAL FOLD, AND RIGHT GROIN. REDNESS ON SACRO-COCCYX AREA. ABDOMEN SOFT, ROUND AND NON-TENDER. ACTIVE BOWEL SOUND. DENIES NAUSEA/VOMITING AT THIS TIME. DENIES ABDOMINAL DISCOMFORT AND PAIN. LEFT GREAT TOE AMPUTEE. DRY SCABS NOTED ON BLE. KEPT HOB ELEVATED. BED IN LOW POSITION LOCKED. WILL CONTINUE TO MONITOR.
--- NOTE | 2018-01-05 07:19 | NUR ---
ENDORSED PT TO DAY SHIFT RN FOR CONTINUITY OF CARE. PT IN STABLE CONDITION.
[2018-01-05 07:48] LABS: BASOPHILS # (AUTO) 0.1 K/uL (0.00-0.22); BASOPHILS % (AUTO) 0.7 % (0.0-2.0); EOSINOPHILS # (AUTO) 0.4 K/uL (0-0.4); EOSINOPHILS % (AUTO) 4.9 % (0.0-4.0); HEMATOCRIT 25.4 % (36-48); HEMOGLOBIN 8.3 g/dL (12.0-16.0); LYMPHOCYTES # (AUTO) 1.8 K/uL (2.5-16.5); MEAN CORPUSCULAR HEMOGLOBIN 30 pg (27-31); MEAN CORPUSCULAR HGB CONC 33 g/dL (33-37); MEAN CORPUSCULAR VOLUME 92.9 fL (80-94); MONOCYTES # (AUTO) 0.6 K/uL (0.8-1.0); MONOCYTES % (AUTO) 8.3 % (1.7-9.3); NEUTROPHILS # (AUTO) 4.9 K/uL (1.8-7.7); NEUTROPHILS % (AUTO) 63.1 % (42.2-75.2); PLATELET COUNT (AUTO) 520 K/uL (140-450); RED BLOOD CELL COUNT(AUTO) 2.74 MIL/uL (4.20-5.40); RED CELL DISTRIBUTION WIDTH 17.5 % (11.6-13.7); WHITE BLOOD COUNT (AUTO) 7.7 K/uL (4.8-10.8)
[2018-01-05 08:00] VITALS: BP 146/75
--- NOTE | 2018-01-05 08:00 | NUR ---
PT REFUSED ORAL CARE.
--- NOTE | 2018-01-05 08:12 | NUR ---
PATIENT HAS BEEN SCREENED AND CATEGORIZED HIGH NUTRITION RISK. PATIENT WILL BE SEEN WITHIN 1-2 DAYS OF ADMISSION. 01/04/18 01/05/[address]
[2018-01-05 08:21] LABS: CARBON DIOXIDE 30.2 mmol/L (21-32); POTASSIUM 3.2 mmol/L (3.5-5.1)
[2018-01-05 08:22] LABS: ALBUMIN 2.1 g/dL (3.4-5.0); CREATININE 1.5 mg/dL (0.6-1.3); TOTAL BILIRUBIN 0.8 mg/dL (0.0-1.0)
[2018-01-05] MEDS: PANTOPRAZOLE 40 MG INJ VIAL IVP SCH (08:24)
--- NOTE | 2018-01-05 08:40 | NUR ---
PT ON NPO STATUS. WAITING FOR SWALLOW EVAL. 0900 AM MEDS NOT ADMINISTERED AT THIS TIME. CHARGE NURSE MADE AWARE. SAID WILL FOLLOW UP WITH
--- NOTE | 2018-01-05 08:45 | NUR ---
CALLED [facility] #[phone]. LEFT VOICE MESSAGE FOR DUE SWALLOW EVTRISTAN.
--- NOTE | 2018-01-05 09:10 | NUR ---
CALL RECEIVED FROM DAUGHTER MICHELL. UPDATED PT CONDITION. SAID WILL BE THERE SHORTLY.
--- NOTE | 2018-01-05 10:07 | NUR ---
ST AT BEDSIDE EVALUATING THE PT.
--- NOTE | 2018-01-05 10:09 | NUR ---
ST RECOMMENDED TO KEEP PT NPO FOR NOW. PER ST PT NEEDS PASSEY MUIRE PEAKING VALVE FOR FEEDING PO. PT MAY ASPIRATE WITHOUT VALVE IF FEED. SEE ST NOTE FOR MORE INFORMATION.
[2018-01-05] MEDS: DOCUSATE SODIUM 100 MG GELCAP PO SCH ×2 (10:11→21:12)
[2018-01-05] MEDS: ASPIRIN 81 MG TAB.CHEW PO SCH (10:11)
--- NOTE | 2018-01-05 10:11 | NUR ---
PAVING SUPERVISOR note (attempted bedside swallow evaluation) 10:10. Bedside swallow evaluation order received, chart reviewed, and d/w RN ([facility]). Pt is currently trach/vent dependent for O2 support with Portex 7 trach. Pt does not currently have Passy-Weldon Speaking Valve (PMV) in place. Pt with h/o x3 admissions recently with admitting diagnoses including PNA (October - December 2017). For pt's safety and to decrease pt's risk for aspiration PNA, recommend: 1) strict NPO (oral cares only) 2) consider alternative method(s) of nutrition/hydration/medication vs comfort measures, as appropriate 3) when pt's respiratory status is appropriate, pt to be trialed on PMV use to improve her ability to cough/protect her airway during PO intakes 4) discharge swallow evaluation order at this time. Physician may reorder PAVING SUPERVISOR intervention once pt able to tolerate PMV use for minimum of 30 minutes at a time for 3 times a day, as appropriate.
[2018-01-05] MEDS: CLOPIDOGREL 75 MG TAB PO SCH (10:12)
[2018-01-05] MEDS: ESCITALOPRAM 20 MG TAB PO SCH (10:12)
[2018-01-05] MEDS: METOPROLOL SUCCINATE 50 MG TABER PO SCH ×2 (10:12→21:15)
--- NOTE | 2018-01-05 10:22 | NUR ---
ST SERVICE AT BEDSIDE TALKING WITH THE DAUGHTER.
--- NOTE | 2018-01-05 10:45 | NUR ---
Supervisor Tellers Note: I met with patient's daughter Dianne Gong at bedside. Per Dianne, she would like patient to be transfer to another sub-acute facility upon discharge if possible. She stated she does not think the staff at [facility] are attentive to patient's needs. She stated she visits patient at [facility] frequently and has talked to staff, including supervisors about her concerns numerous times. She is in agreement with patient returning to [facility] upon discharge if none of the contacted sub-acute facilities are able to accept patient. I faxed inquiries to the following sub-acute facilities: [facility]
--- NOTE | 2018-01-05 11:35 | NUR ---
DAUGHTER REQUESTED TO CALL DR CINTRON AND HAVE HIM IN HOSPITAL TO SEE THE PATIENT. CHARGE NURSE MADE AWARE. SAID CALL DR. LAZARO AND LET HER KNOW FAMILY IS REQUESTING TO CALL DR. CINTRON (PCP FOR PT.). PAGED DR. LAZARO WAITING FOR CALL BACK. DAUGHTER MADE AWARE.
--- NOTE | 2018-01-05 11:49 | NUR ---
PT IS AWAKE AND SITTING UP IN BED WITH DAUGHTER BEDSIDE. PT IS NOT IN ANY DISTRESS AT THIS TIME. WILL CONTINUE TO MONITOR.
[2018-01-05 12:00] VITALS: BP 147/73
--- NOTE | 2018-01-05 12:20 | NUR ---
DAUGHTER MICHELL SAID SHE DOES NOT WANT ANY TUBINGS ON HER MOM FOR FEEDING NEITHER NG-TUBE NOR G-TUBE. DAUGHTER SAID TO DOCUMENT IT. DIETARY MADE AWARE.
--- NOTE | 2018-01-05 12:25 | NUR ---
RECEIVED CALL FROM DR. LAZARO MADE AWARE THAT FAMILY REQUESTING NURSE TO CALL DR. CINTRON TO SEE PT. DR. LAZARO SAID SHE IS THE DR. FOR THE PATIENT AND SHE WILL COME IN HOSPITAL IN COUPLE OF HOURS AND TALK TO THE DAUGHTER. DAUGHTER MADE AWARE. DOCTOR ALSO NOTIFIED THAT PT IS ON NPO AND HER BS IS 65. DOCTOR SAID START D5%NS @ 75 ML/HR. DOCTOR SAID WILL COME AND SEE PT.
--- NOTE | 2018-01-05 12:38 | NUR ---
ADMISSION CHART REVIEW DONE INITIAL REVIEW FAXED TO [facility] [phone] PHONE DELORIS [phone] SPOKE WITH JOVANY FROM [facility]. NO SUBACUTE BEDS AVAILABLE.
--- NOTE | 2018-01-05 12:39 | NUR ---
Lumber Carrier Operator Note: Per Elissa from [facility] , they dont have any beds available in their sub-acute unit at this time. Pending response from either Jagdish or Tejas from [facility] . Per Juan M from [facility] , they dont have any female beds available in their sub-acute unit at this time. Per Koko from [facility] , they dont have any female beds available in their sub-acute unit at this time. Per Margie from [facility] , they dont have any female beds available in their sub-acute unit at this time.
[2018-01-05] MEDS ORDERED: DEXT 5% /NACL 0.9% 1,000 ML IV SCH (12:50)
[2018-01-05] MEDS: ALBUTEROL SULFATE/IPRATROPIU 3 ML SOL IH SCH (13:45)
--- NOTE | 2018-01-05 13:53 | NUR ---
PT SUCTIONED OBTAINED SCANT AMOUNT OF THICK BROWNISH SECRETIONS, AIRWAY IS PATENT AND TRACH IS SECURE AND DAUGHTER ARE BEDSIDE. WILL CONTINUE TO MONITOR.
[2018-01-05] MEDS ORDERED: DEXTROSE 10% 1,000 ML IV ONE (14:05)
[2018-01-05] MEDS: DEXTROSE 10% 1,000 ML IV SCH (14:17)
--- NOTE | 2018-01-05 14:36 | NUR ---
01/05/18 RD INITIAL ASSESSMENT COMPLETED PLEASE REFER TO NUTRITION ASSESSMENT UNDER CARE ACTIVITY FOR ESTIMATED NUTRITIONAL NEEDS. 1. CONTINUE NPO DIET MEDICALLY ADVISED. 2. IF/WHEN MEDICALLY CLEARED TF IS RECOMMENDED. 3. RD TO FOLLOW-UP 2-3 DAYS, HIGH RISK SIMBA MORENO, RD
[2018-01-05] MEDS ORDERED: ECOTRIN 81 MG TABEC PO SCH (14:37)
--- NOTE | 2018-01-05 14:50 | NUR ---
Per Amelia from [facility] , fax number , they don't have any female beds available in sub-acute unit at this time.
[2018-01-05] MEDS ORDERED: CLOPIDOGREL 75 MG TAB PO SCH (14:51)
--- NOTE | 2018-01-05 15:09 | NUR ---
It Support Specialist Note: I called and spoke with patient's daughter Dianne Gong , I informed her there are no sub-acute beds available at [facility] , [facility] , [facility] , [facility] or [facility] [place] . I explained to her [facility] is reviewing inquiry and will let her know if they can or cannot accept, Dianne verbalized understanding.
[2018-01-05 16:00] VITALS: BP 134/59
--- NOTE | 2018-01-05 17:05 | NUR ---
PAGED AND RECEIVED CALL FROM DR. LAZARO. MADE AWARE ABOUT LOW POTASSIUM 3.2. SAID GIVE POTASSIUM 40 MEQ PO ONCE. WILL FOLLOW UP ORDER.
[2018-01-05] MEDS ORDERED: POTASSIUM CHLORIDE 10 MEQ TABER PO SCH (17:30)
--- NOTE | 2018-01-05 17:41 | NUR ---
PT REMAINS ON DOCUMENTED VENT SETTINGS. TRACH REMAINS SECURE WITH A PATENT AIRWAY. VENT ALARMS REMAIN ON AND FUNCTIONING. PT IS AWAKE AND ALERT. PT IS NOT IN ANY DISTRESS AT THIS TIME. DAUGHTER REMAINS AT BEDSIDE.
--- NOTE | 2018-01-05 17:55 | NUR ---
RESTING IN BED. NO SOB. NO ACUTE RESPIRATORY DISTRESS NOTED. VS WNL. DAUGHTER AT BEDSIDE. WILL CONTINUE TO MONITOR.
--- NOTE | 2018-01-05 18:12 | NUR ---
PT LYING IN BED COMFORTABLY. DENIES PAIN. DENIES ANY N/V AT THIS TIME. WILL CONTINUE TO MONITOR.
--- NOTE | 2018-01-05 19:13 | NUR ---
REPORT GIVEN TO CAMP HEAD COUNSELOR RN FOR CONTINUITY OF CARE. PT ON STABLE CONDITION.
--- NOTE | 2018-01-05 19:15 | NUR ---
RECEIVED REPORT FROM DAY SHIFT RN, FOR CONTINUITY OF CARE. PT IS A/OX4, ON TRACH TO VENT, WITH SETTINGS FOLLOWS:RATE 18, PEEP 6, VT 400, FIO2 30%. PT IS ABLE TO MAKE NEEDS KNOWN, ABLE TO FOLLOW COMMANDS. PT BREATHS EQUAL AND UNLABORED. FOR SKIN PROBLEMS, SEE WOUND ASSESSMENT. PT IS UNABLE TO AMBULATE, BUT CAN TURN IN BED. PT HAS A 20G IV TO LEFT AC, ASYMPTOMATIC AND INTACT. DISCUSSED PLAN OF CARE WITH PT, PT VERBALIZED UNDERSTANDING. VITAL SIGNS WITHIN NORMAL LIMITS. PT STABLE, NO SIGNS OF DISTRESS NOTED AT THIS TIME. BED IN LOWEST POSITION, BED ALARM ON. CALL LIGHT WITHIN REACH, WILL CONTINUE TO MONITOR.
[2018-01-05 20:00] VITALS: BP_SYST 110; BP_SYST 137; BP_DIAS 63; BP_DIAS 76
[2018-01-05] MEDS: ATORVASTATIN 20 MG TAB PO SCH (21:12)
--- NOTE | 2018-01-05 21:20 | NUR ---
ADMINISTERED MEDICATIONS, PT TOLERATED WELL.
[2018-01-06] VITALS: BP 134/67
[2018-01-06] MEDS: HYDRAGUARD CREAM TP SCH ×2 (00:30→13:25)
--- NOTE | 2018-01-06 02:35 | NUR ---
PT HAD ANOTHER BM, MODERATE AMOUNT AND LOOSE. PT AND BED WERE CLEANED AGAIN.
[2018-01-06 04:00] VITALS: BP 143/60
[2018-01-06] MEDS: FUROSEMIDE 40 MG/4 ML VIAL IVP SCH ×3 (05:38→20:51)
--- NOTE | 2018-01-06 05:38 | NUR ---
STARTED NEW IV 22G TO LEFT FOREARM, PT TOLERATED WELL.
[2018-01-06 05:53] LABS: BASOPHILS % (AUTO) 0.7 % (0.0-2.0); EOSINOPHILS # (AUTO) 0.4 K/uL (0-0.4); EOSINOPHILS % (AUTO) 5.3 % (0.0-4.0); HEMATOCRIT 25.7 % (36-48); HEMOGLOBIN 8.5 g/dL (12.0-16.0); LYMPHOCYTES % (AUTO) 29.7 % (20.5-51.1); MEAN CORPUSCULAR HEMOGLOBIN 30 pg (27-31); MEAN CORPUSCULAR HGB CONC 33 g/dL (33-37); MONOCYTES # (AUTO) 0.6 K/uL (0.8-1.0); MONOCYTES % (AUTO) 9.3 % (1.7-9.3); NEUTROPHILS # (AUTO) 3.7 K/uL (1.8-7.7); PLATELET COUNT (AUTO) 539 K/uL (140-450); RED BLOOD CELL COUNT(AUTO) 2.82 MIL/uL (4.20-5.40); RED CELL DISTRIBUTION WIDTH 17.3 % (11.6-13.7); WHITE BLOOD COUNT (AUTO) 6.8 K/uL (4.8-10.8)
[2018-01-06] MEDS: BLOOD GLUCOSE MONITORING 1 DEV DEV FS SCH ×4 (05:55→20:48)
[2018-01-06 06:24] LABS: CREATININE 1.3 mg/dL (0.6-1.3); TOTAL BILIRUBIN 0.7 mg/dL (0.0-1.0)
[2018-01-06 06:32] LABS: ANION GAP 5.8 (8-16); CARBON DIOXIDE 31.4 mmol/L (21-32); POTASSIUM 3.2 mmol/L (3.5-5.1)
[2018-01-06] MEDS: ALBUTEROL SULFATE/IPRATROPIU 3 ML SOL IH SCH ×2 (07:12→19:30)
--- NOTE | 2018-01-06 07:12 | NUR ---
RECEIVED ON A [employer] CARESCAPE R860 VENTILATOR PLUGGED INTO RED OUTLET TOLERATING WELL WITHOUT INCIDENT TO A PORTEX DCT #7 AIRWAY SECURED WITH A ABEL TRACH TIE CUFF PRESSURE CHECKED NOTED MASIMO RADICAL-7 CONTINUOS PULSE OXIMETER AT BEDSIDE ON AND FUNCTIONING WELL LOW SATURATION ALARM SET AT 92% LOC AWAKE AND ALERT RESPONSIVE "MOUTHING WORDS" ON OCCASION BREATH SOUNDS DIMINISHED AT BILATERAL BASES WITH GOOD CHEST RISE AIRWAY PATENT Addendum: 01/06/18 at 0748 by Chino Delgado RT SATURATION 100% ON FIO2 OF 30% POST HHN THERAPY TITRATED FIO2 TO 28% AND PEEP TO 5cmH2O ABDI/AMINATA NOTIFIED
--- NOTE | 2018-01-06 07:41 | NUR ---
ENDORSED PT TO DAY SHIFT RN FOR CONTINUITY OF CARE. PT IN STABLE CONDITION.
--- NOTE | 2018-01-06 07:45 | NUR ---
RECEIVED PT FROM ENVELOPE MACHINE OPERATOR NURSEKARMA, PT IS AWAKE AND LYING ON THE BED AND ON A TRACH TO VENT, WITH FI02 AT 28%,RATE AT 18 AND A PEEP OF 5, O2 SATURATION IS AT 98%. PT HAS AN IV LINE ON THE LEFT FA G. 20 WITH D10 AT 50ML/HR, INTACT. FALL PRECAUTION ENFORCED, PT ON YELLOW GOWN, ARM BAND AND YELLOW SIGN IN PLACED, BED IN LOW POSITION, CLINICAL EDUCATION MANAGER AILS ARE UP AND CALL LIGHT WITHIN REACH. RT ON THE BEDSIDE AND GIVING BREATHING TX TO THE PT, NO SIGN OF DISTRESS NOTED AND WILL CONTINUE TO MONITOR PT.
[2018-01-06 08:00] VITALS: BP 137/68
[2018-01-06] MEDS: CLOPIDOGREL 75 MG TAB PO SCH (09:00)
[2018-01-06] MEDS: METOPROLOL SUCCINATE 50 MG TABER PO SCH ×2 (09:00→20:52)
[2018-01-06] MEDS: ESCITALOPRAM 20 MG TAB PO SCH (09:00)
[2018-01-06] MEDS: DOCUSATE SODIUM 100 MG GELCAP PO SCH ×2 (09:00→20:51)
[2018-01-06] MEDS: ASPIRIN 81 MG TAB.CHEW PO SCH (09:00)
--- NOTE | 2018-01-06 09:11 | NUR ---
vent check, airway is patent and pt is awake with family at bedside no signs of distress noted
[2018-01-06] MEDS: PANTOPRAZOLE 40 MG INJ VIAL IVP SCH (09:29)
--- NOTE | 2018-01-06 09:30 | NUR ---
PT'S AM ORAL MEDICATIONS WERE HOLD OFF, BECAUSE PT WAS ON NPO PER THE SWALLOW EVALUATION AND PT WAS AT RISK FOR ASPIRATION. PROTONIX WAS GIVEN AND PT TOLERATED IT.
[2018-01-06] MEDS: DEXTROSE 10% 1,000 ML IV SCH ×2 (09:50→22:14)
--- NOTE | 2018-01-06 10:00 | NUR ---
PT WAS REPOSITIONED AND CLEANED AND AM CARE WAS GIVEN, HYDRAGUARD WAS APPLIED OVER SACRAL, GROIN AND LOWER ABDOMINAL AREA, OPTIFOAM DRESSING APPLIED ON THE SACRAL AREA TO SERVE BARRIER FROM THE INCONTINENT DERMATITIS. NO SIG OF DISTRESS NOTED TO THE PT. WAS MADE COMFORTABLE ON THE BED. ALL NEEDS ARE MET AT THIS TIME.
--- NOTE | 2018-01-06 10:38 | NUR ---
PT'S DAUGHTER IS ON THE BEDSIDE NOW AND NURSE CELLO TEACHER EL IS TALKING TO HER AND ANSWERING THE DAUGHTER'S QUESTIONS REGARDING THE SWALLOW EVALUATION THAT WAS DONE TO THE PT AND TOLD THE RECOMMENDATION OF THE ELECTRIC METER TESTER.
--- NOTE | 2018-01-06 10:55 | NUR ---
TRANSFERRED PATIENT TO RADIOLOGY FOR BARIUM SWALLOW PROCEDURE REMOVED PATIENT FROM VENTILATOR PLACED ON SUPPLEMENTAL AT 15 LPM FROM E-TANK VIA AMBU BAG TO INLINE SUCTION CATHETER/TRACHEOSTOMY TUBE BAG DEPRESSION EVERY 6 SECONDS SATURATION 98 HR 78 TOLERATED TRANSFER WELL WITHOUT INCIDENT
--- NOTE | 2018-01-06 10:56 | NUR ---
PT WAS OFF THE UNIT NOW AND WAS TAKEN BY RADIOLOGY PERSONNEL WITH THE RT TO RADIOLOGY FOR AN ESOPHAGRAM. PT IS AWAKE AND NO SIGN OF DISTRESS NOTED. TRANSPORT MONITOR ON THE BEDSIDE.
--- NOTE | 2018-01-06 11:07 | NUR ---
IN RADIOLOGY AT THIS TIME PATIENT PRESENTING WITH BREATH SOUNDS OF RHONCHI BILATERAL PLACED INLINE SUCTION CATHETER TO TRACHEOSTOMY TUBE DEEP TRACHEAL SUCTION FOR MODERATE THICK YELLOW WITH "OLD BLOOD" TINGE SECRETIONS AIRWAY PATENT DEFLATED CUFF PRESSURE TO 0cmH2O (BALLOON FLAT) FOR BARIUM SWALLOW PROCEDURE REMOVED FROM INLINE SUCTION CATHETER PLACED ON A VENTURI DEVICE AT 40%/15 LPM VIA E-TANK SATURATION 99% HR 79
--- NOTE | 2018-01-06 11:10 | NUR ---
TRANSFERRED PATIENT TO CHAIR WITHOUT INCIDENT
--- NOTE | 2018-01-06 11:11 | NUR ---
Shipwright Supervisor Note: Late entry for 01/05/18: Per patient's daughter Dianne Gong , she does not want patient to be transfer to [facility] upon discharge. Prior to hospital admission patient was living at [facility] and patient's daughter Dianne requested assistance with finding a new sub-acute facility for patient and agreed with patient returning to [facility] if none of the contacted sub-acute facilities were able to accept patient.
--- NOTE | 2018-01-06 11:18 | NUR ---
BARIUM SWALLOW PROCEDURE IN PROGRESS REMAINS ON VENTURI DEVICE AT 40%/15LPM VIA E-TANK TOLERATING WELL WITHOUT INCIDENT TO TRACH MASK TRACHEAL TUBE CUFF BALLOON FLAT SATURATION 98% HR 81
--- NOTE | 2018-01-06 11:25 | NUR ---
TOLERATED BARIUM SWALLOW PROCEDURE WELL PATIENT TRANSFERRED BACK TO [facility] [[email or web address] 108-B ON VENTURI DEVICE AT 40%/15LPM VIA E-TANK TO [facility] MASK
--- NOTE | 2018-01-06 11:28 | NUR ---
PLACED PATIENT BACK ON A [employer] VENTILATOR WITH SAME SETTINGS NOTED
--- NOTE | 2018-01-06 11:30 | NUR ---
STABLE NO DISTRESS NOTED BREATH SOUNDS DIFFUSED RHONCHI BILATERAL WITH GOOD CHEST RISE DEEP TRACHEAL SUCTION FOR SMALL THICK YELLOW WITH "OLD BLOOD" TINGE SECRETIONS AIRWAY PATENT
--- NOTE | 2018-01-06 11:30 | NUR ---
PT WAS BACK TO THE ROOM FROM THE ESOPHAGRAM AND SWALLOW EVALUATION, NO SIGN OF DISTRESS NOTED AND WILL CONTINUE TO MONITOR.
--- NOTE | 2018-01-06 11:51 | NUR ---
S.T. VIDEOFLUOROSCOPIC SWALLOW STUDY COMPLETED. Time in/out [id number] Please see report for details. Pt presents with moderate-severe pharyngeal dysphagia characterized by diminished laryngeal excursion and epiglottic inversion resulting in sally aspiration of thin liquid barium and supraglottic penetration with eventual aspiration of nectar thick liquid barium. Flash penetration without aspiration was observed with honey thick liquid barium. Also observed mild-mod amounts of residue in valleculae and pyriform sinuses after swallows of nectar, honey thick liquid and puree. Pt benefited from chin down position when swallowing honey thick liquids, helping to diminish opportunities of flas penetration. Pt is at high risk for aspiration. Recommend: 1) Pureed diet, honey thick liquids only, by spoon.NO STRAWS. 2) Chin down position with all swallows of honey thick liquids. 3) Crush P.O. meds and mix with puree. 4) Strict aspiration precautions. 5) Passy-Bebo Valve in place for all P.O. intake S.T. to follow up with 2 tx visits to ensure tolerance of recommended diet textures as well as reinforce compensatory strategies for swallowing. D/w pt and daughter results and recommendations. Both communicated understanding. [id number] CL G8997 CL NOMS LEVEL 5
[2018-01-06 12:00] VITALS: BP 137/67
--- NOTE | 2018-01-06 12:03 | NUR ---
CALLED [facility] AND SPOKE WITH JOVANY NO SUBACUTE BEDS TODAY.
--- NOTE | 2018-01-06 12:15 | NUR ---
JENNY CALLED ME AND INFORMED OF THE SWALLOW EVALUATION THAT WAS DONE TOT HE PT AND RECOMMENDED A PUREED DIET TO THE PT, WITH ASPIRATION PRECAUTION ENFORCED, THICK LIQUIDS AND NO STRAW AND CHIN SHOULD BE TUCKED IN WHEN SWALLOWING. ACKNOWLEDGED AND WILL INFORM THE DAUGHTER.
--- NOTE | 2018-01-06 12:17 | NUR ---
BLOOD GLUCOSE CHECK DONE TO THE PT AND RESULT IS 118, NO INSULIN COVERAGE, WILL CONTINUE TO MONITOR PT.
--- NOTE | 2018-01-06 12:40 | NUR ---
WAS INFORMED OF THE OUTCOME OF THE SWALLOW EVALUATION THAT WAS DONE TO THE PT AND ORDERED TO GIVE ALL THE AM MEDICATIONS NOW TO THE PT. ACKNOWLEDGED AND WILL INFORM PHARMACY.
--- NOTE | 2018-01-06 12:45 | NUR ---
DR. LAZARO CAME TO THE PT'S ROOM AND SPOKE TO THE PT AND THE DAUGHTER.
[2018-01-06] MEDS ORDERED: ASPIRIN 81 MG TAB.CHEW PO SCH (12:49)
[2018-01-06] MEDS ORDERED: CLOPIDOGREL 75 MG TAB PO SCH ×2 (12:51→14:35)
[2018-01-06] MEDS ORDERED: ESCITALOPRAM 20 MG TAB PO SCH (12:52)
[2018-01-06] MEDS ORDERED: METOPROLOL SUCCINATE 50 MG TABER PO SCH (12:58)
[2018-01-06] MEDS ORDERED: ALBUTEROL SULFATE/IPRATROPIU 3 ML SOL IH PRN ×2 (13:14→13:15)
[2018-01-06] MEDS ORDERED: MAGNESIUM HYDROXIDE 2400 MG/30 ML UDC PO PRN (13:16)
--- NOTE | 2018-01-06 13:33 | NUR ---
NO DISTRESS NOTED GOOD CHEST RISE DEP TRACHEAL SUCTION FOR SMALL SCATTERED THICK SECRETIONS AIRWAY PATENT
--- NOTE | 2018-01-06 13:48 | NUR ---
FAXED CONCURRENT REVIEW TO [facility] [phone] PHONE DELORIS [phone] ORDER FOR JEANNA RODRIGUEZ, FAXED INQUIRY TO JEANNA FAX [phone]
--- NOTE | 2018-01-06 14:12 | NUR ---
RECEIVED A CALL FROM NICKOLAS FROM [facility]. SHE SAID THAT THEY ARE ACUTE REHAB AND THEY DO TAKE TRACH PATIENTS BUT NOT VENT PATIENT. PATIENT WOULD HAVE TO BE OFF THE VENTILATOR FOR 72 HOURS. FOR THE ACUTE REHAB IS FOR PT,OT AND ST. I CALLED DR LAZARO AND INFORMED HER. I ALSO CALLED THE DAUGHTER, MICHELL MACARIO AND INFORMED HER.
[2018-01-06 16:00] VITALS: BP 133/66
--- NOTE | 2018-01-06 17:04 | NUR ---
RESTING COMFORTABLY NO EVIDENCE OF PULMONARY DISTRESS NOTED AT THIS TIME GOOD CHEST RISE AIRWAY PATENT NO TRACHEAL SUCTIONING METAPHYSICS TEACHER TO MONITOR
--- NOTE | 2018-01-06 18:38 | NUR ---
I WS CALL TO DEFLATE THE CUFF FOR PT TO EAT. DAUGHTER AT BED SIDE AND PT STATING EATING HER DINNER, HER SWALLOWING EVALUATION WAS DONE AND PT PASS. DEFLATE CUFF AND PT IS EATING AT THIS TIME
--- NOTE | 2018-01-06 18:45 | NUR ---
PT IS EATING HER DINNER WITH ASPIRATION PRECAUTION ENFORCED. NO SIGN OF DISTRESS NOTED AND PT TOLERATED THE PUREE DIET.
--- NOTE | 2018-01-06 19:20 | NUR ---
ENDORSED PT TO BARREL ROLLER OPERATOR NURSE FOR CONTINUITY OF CARE. PT IS STABLE AT THIS TIME.
--- NOTE | 2018-01-06 19:20 | NUR ---
RECEIVED REPORT FROM DAY SHIFT NURSE, ABDI, AT PT BEDSIDE. PT IN STABLE CONDITION. PT IS A/O X4. PT IS TRACH TO VENT. SETTINGS FIO2 28, TV 400, PEEP 5, FLOW 30. IV SITE TO L FA 20G WITH IVF RUNNING PER MD ORDERS. IS IT PATENT AND INTACT. PT HAS REDNESS TO GROIN AREA AND OPTIFORM DRESSING COVERING SACRAL AREA. PT HAS L BIG TOE AMPUTATION. PT HAS NO C/O PAIN AT THIS TIME. PT IS ON ASPIRATION PRECAUTIONS. BED IS LOCKED, LOW POSITION, WITH SIDE RAILS UP X2. CALL LIGHT IS WITHIN REACH. BOARD UPDATED. WILL CONTINUE TO MONITOR PT.
[2018-01-06 20:00] VITALS: BP 126/61
--- NOTE | 2018-01-06 20:51 | NUR ---
ADMINISTERED SCHEDULED MEDICATIONS TO PT. BS CHECKED, 151. INSULIN COVERAGE GIVEN PER MD ORDERS. PT TOLERATED WELL. ALL NEEDS ARE MET AT THIS TIME. WILL CONTINUE TO MONITOR.
[2018-01-06] MEDS: ATORVASTATIN 20 MG TAB PO SCH (20:52)
[2018-01-06] MEDS: INSULIN LISPRO SLIDING SCALE 100 UNITS/ML VIAL SUBQ PRN (20:54)
--- NOTE | 2018-01-06 22:49 | NUR ---
PT RESTING COMFORTABLY IN BED WATCHING TV. NO SIGNS OR SYMPTOMS OF DISTRESS. WILL CONTINUE TO MONITOR.
[2018-01-07] VITALS: BP 118/60
--- NOTE | 2018-01-07 00:01 | NUR ---
PT ASLEEP IN BED. NO SIGNS OR SYMPTOMS OF DISTRESS. WILL CONTINUE TO MONITOR.
[2018-01-07] MEDS: ALBUTEROL SULFATE/IPRATROPIU 3 ML SOL IH SCH ×3 (00:55→13:11)
--- NOTE | 2018-01-07 01:11 | NUR ---
ASSISTED SERVICE PARTS DRIVER WITH CHANGING, CLEANING AND TURNING PT. HYDRAGUARD CREAM APPLIED. PT TOLERATED WELL. WILL CONTINUE TO MONITOR.
[2018-01-07] MEDS: HYDRAGUARD CREAM TP SCH (01:22)
--- NOTE | 2018-01-07 03:14 | NUR ---
RT AT PT BEDSIDE. PT HAS NO SIGNS OR SYMPTOMS OF DISTRESS. WILL CONTINUE TO MONITOR.
[2018-01-07 04:00] VITALS: BP 120/64
--- NOTE | 2018-01-07 05:00 | NUR ---
RT AT PT BEDSIDE PERFORMING TRACH CARE. PT TOLERATING WELL. WILL CONTINUE TO MONITOR.
--- NOTE | 2018-01-07 05:20 | NUR ---
ASSISTED SUPERVISOR PRINT LINE WITH CHANGING, CLEANING AND TURNING PT. HYDRAGUARD CREAM APPLIED AND NEW DRESSING APPLIED TO SACRAL AREA. PT TOLERATED WELL. WILL CONTINUE TO MONITOR.
[2018-01-07] MEDS: BLOOD GLUCOSE MONITORING 1 DEV DEV FS SCH ×3 (05:46→16:51)
[2018-01-07] MEDS: FUROSEMIDE 40 MG/4 ML VIAL IVP SCH ×2 (05:47→12:48)
--- NOTE | 2018-01-07 05:47 | NUR ---
ADMINISTERED SCHEDULED MEDICATION TO PT. BS CHECKED, 143. NO COVERAGE NEEDED PER MD ORDERS. PT TOLERATED WELL. ALL NEEDS ARE MET AT THIS TIME. WILL CONTINUE TO MONITOR.
[2018-01-07 05:52] LABS: BASOPHILS % (AUTO) 0.5 % (0.0-2.0); EOSINOPHILS # (AUTO) 0.3 K/uL (0-0.4); EOSINOPHILS % (AUTO) 4.9 % (0.0-4.0); HEMATOCRIT 25.6 % (36-48); HEMOGLOBIN 8.4 g/dL (12.0-16.0); LYMPHOCYTES # (AUTO) 2.4 K/uL (2.5-16.5); LYMPHOCYTES % (AUTO) 33.6 % (20.5-51.1); MEAN CORPUSCULAR HEMOGLOBIN 30 pg (27-31); MEAN CORPUSCULAR HGB CONC 33 g/dL (33-37); MONOCYTES # (AUTO) 0.7 K/uL (0.8-1.0); MONOCYTES % (AUTO) 10.6 % (1.7-9.3); NEUTROPHILS # (AUTO) 3.5 K/uL (1.8-7.7); NEUTROPHILS % (AUTO) 50.4 % (42.2-75.2); PLATELET COUNT (AUTO) 526 K/uL (140-450); RED BLOOD CELL COUNT(AUTO) 2.81 MIL/uL (4.20-5.40); RED CELL DISTRIBUTION WIDTH 17.3 % (11.6-13.7)
--- NOTE | 2018-01-07 07:21 | NUR ---
REC'D PT ON MECHANICAL VENTILATION. PT IS TRACHED WITH PORTEX 7. TRACH IS IN PLACE AND SECURED. VENT IS CONNECTED TO RED OUTLET. ALARMS AUDIBLE. AMBU BAG AT BEDSIDE. PT AWAKE AND ALERT. REFUSED HHN TX. PT VERBALIZED"I DONT WANT IT". RN AWARE. NO SOB OR DISTRESS NOTED. WILL CONTINUE TO MONITOR.
--- NOTE | 2018-01-07 07:30 | NUR ---
ENDORSED PT TO DAY SHIFT NURSE. PT IN STABLE CONDITION.
--- NOTE | 2018-01-07 07:31 | NUR ---
RECEIVED BEDSIDE REPORT FROM PM SHIFT NURSE. PT LYING IN BED, AWAKE, VERBAL, DENIES ANY DISCOMFORT, TRACH TO VENT IN PLACE, RESPIRATIONS EVEN & UNLABORED. CALL LIGHT WITHIN REACH.
[2018-01-07 08:00] VITALS: BP 132/66
[2018-01-07] MEDS: DOCUSATE SODIUM 100 MG GELCAP PO SCH (08:31)
[2018-01-07] MEDS: PANTOPRAZOLE 40 MG INJ VIAL IVP SCH (08:31)
[2018-01-07] MEDS: CLOPIDOGREL 75 MG TAB PO SCH (08:31)
[2018-01-07] MEDS: ESCITALOPRAM 20 MG TAB PO SCH (08:32)
[2018-01-07] MEDS: ASPIRIN 81 MG TAB.CHEW PO SCH (08:32)
[2018-01-07] MEDS: METOPROLOL SUCCINATE 50 MG TABER PO SCH (08:33)
--- NOTE | 2018-01-07 09:10 | NUR ---
VENT CHECK. PT AWAKE AND ALERT. SXN'D SCANT AMT OF BROWN THICK SECRETIONS. NO SOB OR DISTRESS NOTED. DAUGHTER AT BEDSIDE. WILL CONTINUE TO MONITOR.
[2018-01-07] MEDS ORDERED: HYDRAGUARD CREAM TP SCH (09:19)
--- NOTE | 2018-01-07 09:20 | NUR ---
PT NOTIFIED NURSE OF NEED TO VOID. PT ABLE TO USE BED GEIGER WITH MINIMAL ASSIST. VOIDED x1 WITH SMALL BM. PERICARE PROVIDED. CALL LIGHT WITHIN REACH. TRACH TO VENT IN PLACE.
[2018-01-07] MEDS ORDERED: HYDRAGUARD CREAM TP PRN (09:21)
[2018-01-07] MEDS ORDERED: METOPROLOL 25 MG TAB PO SCH (09:23)
--- NOTE | 2018-01-07 10:15 | NUR ---
DAUGHTER LULY AT BEDSIDE VISITING PT. PT SITTING UP IN BED, ALERT, VERBAL, NO C/O PAIN. TRACH TO VENT IN PLACE. RESPIRATIONS EVEN & UNLABORED. LEFT FOREARM IV SITE INTACT. CALL LIGHT WITHIN REACH.
[2018-01-07] MEDS: INSULIN LISPRO SLIDING SCALE 100 UNITS/ML VIAL SUBQ PRN (11:50)
[2018-01-07 12:00] VITALS: BP 127/62
--- NOTE | 2018-01-07 12:30 | NUR ---
DR LAZARO AT BEDSIDE TO ASSESS PT. PT AWAKE, VERBAL, TRACH TO VENT IN PLACE, RESPIRATIONS EVEN & UNLABORED. CALL LIGHT WITHIN REACH.
[2018-01-07] MEDS ORDERED: LEVO250T2 PO (13:00)
[2018-01-07] MEDS ORDERED: LEVOFLOXACIN 250 MG/D5 PREMIX 50 ML IV SCH ×2 (13:38→14:00)
[2018-01-07] MEDS ORDERED: LEVOFLOXACIN 500 MG/D5W PREMIX 100 ML IV SCH (14:00)
[2018-01-07] MEDS ORDERED: Z-GUARD PASTE TP SCH (14:20)
[2018-01-07] MEDS ORDERED: Z-GUARD PASTE TP PRN (14:50)
--- NOTE | 2018-01-07 14:52 | NUR ---
01/07/18 RD FOLLOW UP COMPLETED PLEASE REFER TO NUTRITION ASSESSMENT UNDER CARE ACTIVITY FOR ESTIMATED NUTRITIONAL NEEDS. 1. CONTINUE PUREE DIET WITH HONEY THICK LIQUIDS TOLERATED 2. RD TO FOLLOW-UP 3-5 DAYS, MODERATE RISK SIMBA MORENO RD
--- NOTE | 2018-01-07 15:19 | NUR ---
CM NOTE PER [facility] CM [place] PH# [phone], IF PATIENT GOING TO SNF, FOR [facility] AUTH# [id number]. CHARGE NURSE MARTÍN MATSON. CONCURRENT REVIEW FAXED TO [facility] [phone] [place] PH# [phone].
--- NOTE | 2018-01-07 15:29 | NUR ---
PT WITH INTERMITTENT DRY COUGH. PER PT, COUGHING IS BOTHERSOME. ROBITUSSIN WITH CODEINE ADMINISTERED PO PER PT REQUEST.
[2018-01-07] MEDS ORDERED: ACETAMINOPHEN 325 MG TAB PO PRN (15:34)
[2018-01-07] MEDS ORDERED: BISACODYL 10 MG SUPP RC PRN (15:35)
[2018-01-07 16:00] VITALS: BP 127/70
--- NOTE | 2018-01-07 16:22 | NUR ---
Supervisor Tubing Note: [facility] , fax number , they don't have any female beds available in sub-acute unit at this time and is unsure if they have a contract with [facility]. Per Elissa from [facility] , they dont have any beds available in their sub-acute unit at this time. Per Roselyn from [facility] , they might possibly have a female bed available in their unit, stated she will review inquiry and call me back. Per Giovanna from [facility] , they might possibly have a female bed available in their unit, stated she will review inquiry and call me back Per Olga from [facility] , they dont have any female beds available in their sub-acute unit at this time.
--- NOTE | 2018-01-07 16:29 | NUR ---
NO COUGH OBSERVED AT THIS TIME. PT STATES SHE FEELS BETTER AFTER TAKING COUGH SYRUP. PT IS AWAKE, VERBAL, RESPIRATIONS EVEN & UNLABORED, DENIES ANY PAIN OR DISCOMFORT. TRACH TO VENT IN PLACE. OFFERED BED GEIGER, BUT PT REFUSED AT THIS TIME. CALL LIGHT WITHIN REACH. DAUGHTER CAME IN TO SEE PT.
--- NOTE | 2018-01-07 16:51 | NUR ---
Wire Winding Machine Tender Note: I informed patient's daughter Dianne Gong , the following sub-acute facilities dont have any beds available in their sub[facility]: [facility] , [facility] , [facility] , and [facility] . She verbalized understanding and stated she does not want patient to be transfer to [facility] , she is agreement with patient returning to [facility] today. I faxed patient's information to [facility]. Per Mehran from [facility], she requested charge nurse Nidhi to fax them specific culture results and stated once they receive culture results patient can return to room 4A today, accepting physician is , charge nurse Nidhi made aware. Per Roselyn from [facility] , they dont have any female beds available in their sub-acute unit at this time. She stated she will contact [facility] and inform staff once they have a bed available. Per Giovanna from [facility] , they dont have any female beds available in their sub-acute unit at this time.
--- NOTE | 2018-01-07 17:33 | NUR ---
ARRANGED TRANSPORT TO [facility] WITH [facility] AUTH# [id number].GIVEN TECHNOLOGY AND ENGINEERING TEACHER TIME 1899 NOTIFIED AMINATA BARROSO.
--- NOTE | 2018-01-07 18:38 | NUR ---
SPOKE TO VIKRAM, CHARGE NURSE FROM [facility], TO GIVE REPORT RE: PT. PER VIKRAM, THEY CANT ACCEPT PT AT THIS TIME BECAUSE THEY ARE WAITING FOR MICROBIOLOGY REPORT FROM FAX. REFERRED TO CHARGE NURSE.
--- NOTE | 2018-01-07 18:55 | NUR ---
GAVE REPORT TO VIKRAM FROM [facility].
--- NOTE | 2018-01-07 19:05 | NUR ---
PT LEFT VIA GURNEY WITH [facility] packer operator automatic. PT ALERT, VERBAL, STABLE, TRACH TO VENT IN PLACE.
--- NOTE | 2018-01-07 19:11 | NUR ---
* ST D/C NOTE * Clinician attempting to provide skilled RESIDENTIAL FINISH CARPENTER treatment at this time. Pt and Charge Nurse informing clinician pt discharging back to [facility] at this time, w/skilled RESIDENTIAL FINISH CARPENTER tx not advisable at this time, w/clinician verbalizing understanding. No further ST follow up recommended at [facility] at this time. Time In/Out 16:40 - 16:55
[2018-01-08] MEDS ORDERED: LEVOFLOXACIN 250 MG/D5 PREMIX 50 ML IV SCH (14:00)
== END 2018-01-07 19:05 | DRG 661 ==
LOC: MED 01:10 → MIC 04:37 → MTU 21:50
PROVIDERS: ADMIT Hospitalist; ATTEND Hospitalist
PROC: 5A1945Z Respiratory Ventilation, 24-96 Consecutive Hours (ICD-10-PCS; principal; 2018-01-04)
PROC: 3E0234Z Introduction of Serum, Toxoid and Vaccine into Muscle, Percutaneous Approach (ICD-10-PCS; 2018-01-04)
DX: D68.32 Hemorrhagic disorder due to extrinsic circulating anticoagulants (principal); Z99.11 Dependence on respirator [ventilator] status; E43 Unspecified severe protein-calorie malnutrition; J96.10 Chronic respiratory failure, unspecified whether with hypoxia or hypercapnia; E11.22 Type 2 diabetes mellitus with diabetic chronic kidney disease; T45.525A Adverse effect of antithrombotic drugs, initial encounter; D64.9 Anemia, unspecified; R04.2 Hemoptysis; I13.0 Hypertensive heart and chronic kidney disease with heart failure and stage 1 through stage 4 chronic kidney disease, or unspecified chronic kidney disease; I50.9 Heart failure, unspecified; I25.10 Atherosclerotic heart disease of native coronary artery without angina pectoris; J44.9 Chronic obstructive pulmonary disease, unspecified; N18.9 Chronic kidney disease, unspecified; Z95.5 Presence of coronary angioplasty implant and graft; Z79.02 Long term (current) use of antithrombotics/antiplatelets; Z79.82 Long term (current) use of aspirin; Z79.899 Other long term (current) drug therapy; Z79.84 Long term (current) use of oral hypoglycemic drugs; Z93.0 Tracheostomy status; Z87.891 Personal history of nicotine dependence; Y92.89 Other specified places as the place of occurrence of the external cause; Z87.01 Personal history of pneumonia (recurrent); Z68.25 Body mass index [BMI] 25.0-25.9, adult; Z23 Encounter for immunization
CPT/HCPCS: 36415; 36600; 70370; 71045; 80053; 80202; 82803; 82948; 83880; 84484; 85025; 85610; 85730; 87040; 87070; 87081; 87186; 87205; 90658; 92611; 93005; 94003; 94640; 96365; 99285; C9113; J1815; J1940; J1956; J2543; J3370; J7030; J7042; J7060; J7613; J7620; J7644; Q0092